=== PATIENT | male | born 1960 | race American Indian/Alaskan Native ===

== ENCOUNTER 2017-01-03 20:56 | Observation (INO) | payer MEDICAID ==
[2017-01-03 20:57] VITALS: BMI 34.0
[2017-01-03 21:10] VITALS: O2SAT 98
--- NOTE | 2017-01-03 22:00 | C.PDOC ---
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 Notes it is both feet and is on water pill HCTZ. He denies any dyspnea, chest pain, orthopnea. Time Seen by Provider: 01/03/17 21:37 Chief Complaint (Nursing): Lower Extremity Problem/Injury Past Medical History Vital Signs: Last Vital Signs Temp 98 F 01/03/17 21:07 Pulse 84 01/03/17 21:07 Resp 14 01/03/17 21:07 BP 154/84 H 01/03/17 21:07 Pulse Ox 98 01/03/17 23:13 - Medical History PMH: CVA, Deep Vein Thrombosis, Gastritis, HTN, Hyperlipidemia, Peripheral Edema , Pulmonary Embolism, Seizures Family History: States: Unknown Family Hx - Social History Hx Alcohol Use: No Hx Substance Use: No - Immunization History Hx Influenza Vaccination: Yes Review Of Systems Except As Marked, All Systems Reviewed And Found Negative. Constitutional: Negative for: Fever Cardiovascular: Negative for: Chest Pain Respiratory: Negative for: Shortness of Breath Physical Exam - Physical Exam Additional Physical Exam Comments: Constitutional: No acute distress. Head: Normocephalic. Atraumatic. Eyes: PERRL. ENT: Moist mucous membranes. Neck: Supple. No JVD. Cardiovascular: Regular rate. Chest: No tenderness. Respiratory: Clear to auscultation bilaterally. Mild basilar crackles. GI: Soft. Nontender. Nondistended. Back: No CVA tenderness. Musculoskeletal: Bilateral pitting edema. Skin: No rash. Neurologic: Alert ED Course And Treatment - Laboratory Results Result Diagrams: 01/03/17 22:38 01/03/17 22:38 O2 Sat by Pulse Oximetry: 98 ED OBSERVATION Discharge: Yes Date of observation admission: 01/03/17 Time of observation admission: 23:11 - Observation admission statement Patient is being placed in observation because:: leg swelling homeless - Progress Note Progress Note: 2310 Doppler for 2 days ago negative. Patient taking HCTZ after not taking for a while. Otherwise, labs stable. Would discharge but patient lives in correction which does not allow access at this time. Will hold until morning. 0100 Sleeping, no distress. 0300 Sleeping, no distress. 0500 Discharged. Disposition - Disposition Disposition: HOME/ ROUTINE Disposition Time: 05:20 Condition: STABLE - Clinical Impression Clinical Impression: Pedal edema
[2017-01-03 22:41] LABS: BASO # 0.1 K/uL (0.0-0.2); EOS # 0.2 K/uL (0.0-0.7); EOS % 1.5 % (0.0-4.0); HEMATOCRIT 36.3 % (35.0-51.0); LYMPH # 3.5 K/uL (1.0-4.3); LYMPH % 27.7 % (20.0-40.0); MEAN CELL VOLUME 75.2 fL (80.0-94.0); MEAN CORPUSCULAR HEMOGLOBIN 23.5 pg (27.0-31.0); MEAN CORPUSCULAR HGB CONC 31.3 g/dL (33.0-37.0); MEAN PLATELET VOLUME 9.3 fL (7.2-11.7); MONO # 0.9 K/uL (0.0-0.8); MONO % 7.5 % (0.0-10.0); NRBC % 0.1 % (0.0-2.0); RED CELL DISTRIBUTION WIDTH 14.9 % (11.5-14.5); WHITE BLOOD COUNT 12.5 K/uL (4.8-10.8)
[2017-01-03 22:47] LABS: INR 1.2
[2017-01-03 22:49] LABS: CHLORIDE 105 mmol/L (98-107); POTASSIUM 3.1 mmol/L (3.6-5.2); SODIUM 143 mmol/L (132-148)
[2017-01-03 22:51] LABS: BILIRUBIN,TOTAL 0.4 mg/dL (0.2-1.3); GFR AFRICAN-AMERICAN > 60
[2017-01-03 22:52] LABS: ALB/GLOB RATIO 1.3 (1.0-2.1); ALKALINE PHOSPHATASE 52 U/L (38-126); ALT/SGPT 16 U/L (21-72); AST/SGOT 16 U/L (17-59); BLOOD UREA NITROGEN 15 mg/dL (9-20); CARBON DIOXIDE 25 mmol/L (22-30); GLUCOSE,RANDOM 101 mg/dL (75-110); TOTAL PROTEIN 6.4 g/dL (6.3-8.3)
[2017-01-03 22:53] LABS: CALCIUM 8.6 mg/dl (8.6-10.4)
[2017-01-04 06:25] VITALS: BP 142/84; PULSE 80; RESP 18; TEMP 98.2
--- NOTE | 2017-01-04 08:45 | RAD ---
HISTORY: pedal edema COMPARISON: None available. TECHNIQUE: Chest, one view. FINDINGS: Examination limited by habitus and hypoinflation. LUNGS: Discoid atelectasis, left lung base. Right basilar atelectasis. Please note that chest x-ray has limited sensitivity for the detection of pulmonary masses. PLEURA: No significant pleural effusion identified. No definite pneumothorax . CARDIOVASCULAR: Cardiomegaly. Ectatic aorta. OSSEOUS STRUCTURES: Degenerative changes of the spine and shoulders. VISUALIZED UPPER ABDOMEN: Elevation of the left hemidiaphragm. OTHER FINDINGS: None. IMPRESSION: Discoid atelectasis, left lung base. Right basilar atelectasis.
== END 2017-01-04 05:20 | disposition home or self-care (01) ==
LOC: C.ER 20:56 → C.9OBSV 23:11
PROVIDERS: ADMIT Student in an Organized Health Care Education/Training Program; ATTEND Student in an Organized Health Care Education/Training Program
DX: R60.0 Localized edema (principal); Z59.0 Homelessness; Z86.711 Personal history of pulmonary embolism; I69.354 Hemiplegia and hemiparesis following cerebral infarction affecting left non-dominant side; I10 Essential (primary) hypertension; E78.5 Hyperlipidemia, unspecified; K29.70 Gastritis, unspecified, without bleeding; Z99.3 Dependence on wheelchair; Z86.718 Personal history of other venous thrombosis and embolism
CPT/HCPCS: 71010; 80053; 83880; 84484; 85025; 85610; 85730; 99284; G0378

== ENCOUNTER 2017-01-14 19:51 | Inpatient (IN) | payer MEDICAID ==
[2017-01-14 19:51] VITALS: BMI 34.0
--- NOTE | 2017-01-14 20:54 | C.PDOC ---
History Of Present Illness 56 y/o male presents to ED who was recently discharged from [facility] yesterday where he was admitted for leg edema. Patient with past history of CVA and with some residual left sided weakness and is wheelchair bound. Patient reports he still feels congested with some shortness of breath. Denies chest pain or palpitations. Patient states he is able to lie down flat and is speaking in complete sentences. Denies fever, chills, nausea, vomiting, or other associated symptoms. Time Seen by Provider: 01/14/17 20:53 Chief Complaint (Nursing): Cough, Cold, Congestion History Per: Patient History/Exam Limitations: no limitations Onset/Duration Of Symptoms: Days Current Symptoms Are (Timing): Still Present Location Of Pain: None Associated Symptoms: denies: Fever, Cough, Vomiting, Diarrhea Ear Symptoms: Bilateral: None Recent travel outside of the [place]: No Past Medical History Reviewed: Historical Data, Nursing Documentation, Vital Signs Vital Signs: Last Vital Signs Temp 98.1 F 01/14/17 20:25 Pulse 76 01/14/17 20:25 Resp 20 01/14/17 20:25 BP 155/95 H 01/14/17 20:25 Pulse Ox 98 01/14/17 21:29 - Medical History PMH: CVA, Deep Vein Thrombosis, Gastritis, HTN, Hyperlipidemia, Peripheral Edema , Pulmonary Embolism, Seizures Family History: States: Unknown Family Hx - Social History Hx Alcohol Use: No Hx Substance Use: No - Immunization History Hx Influenza Vaccination: Yes Review Of Systems Constitutional: Negative for: Fever, Chills ENT: Negative for: Throat Pain Cardiovascular: Negative for: Chest Pain, Palpitations Respiratory: Positive for: Shortness of Breath, Other ((+) congestion ) Gastrointestinal: Negative for: Nausea, Vomiting, Abdominal Pain Genitourinary: Negative for: Dysuria Skin: Negative for: Rash Neurological: Positive for: Weakness. Negative for: Dizziness Psych: Negative for: Anxiety Physical Exam - Physical Exam Appears: Non-toxic, No Acute Distress, Other (speaking in complete sentences) Skin: Warm, Dry Head: Atraumatic, Normacephalic Eye(s): bilateral: Normal Inspection Neck: Supple Chest: Symmetrical Cardiovascular: Rhythm Regular Respiratory: Rales (bibasilar), No Rhonchi, No Wheezing Gastrointestinal/Abdominal: Soft, No Tenderness Back: Normal Inspection Extremity: Pedal Edema (bilateral) Extremity: Bilateral: Atraumatic Neurological/Psych: Oriented x3, Normal Speech, Normal Cognition Gait: Unable To Assess ED Course And Treatment - Laboratory Results Result Diagrams: 01/14/17 22:16 01/14/17 22:16 ECG: Interpreted By Me, Viewed By Me O2 Sat by Pulse Oximetry: 98 Pulse Ox Interpretation: Normal - Radiology CXR Interpretation: Yes: Cardiomegaly, Other (mild chf, large hiatal hernia) Progress Note: EKG, CxR, ABG, and bloodwork ordered. Disposition Discussed With : Chong Adame Comment: accepted the pt on his service and took over the care at 11:35 PM Doctor Will See Patient In The: Hospital Counseled Patient/Family Regarding: Studies Performed, Diagnosis - Disposition Disposition: HOSPITALIZED Disposition Time: 20:54 Condition: FAIR - POA Present On Arrival: None - Clinical Impression Clinical Impression: CHF (congestive heart failure), Hiatal hernia, Dyspnea - Scribe Statement The provider has reviewed the documentation as recorded by the Gretchen Torres Provider Scribe Attestation: All medical record entries made by the Scribe were at my direction and personally dictated by me. I have reviewed the chart and agree that the record accurately reflects my personal performance of the history, physical exam, medical decision making, and the department course for this patient. I have also personally directed, reviewed, and agree with the discharge instructions and disposition. Decision To Admit - Pt Status Changed To: Hospital Disposition Of: Inpatient - Admit Certification Admit to Inpatient:: After my assessment, the patient will require hospitalization for at least two midnights. This is because of the severity of symptoms shown, intensity of services needed, and/or the medical risk in this patient being treated as an outpatient. - InPatient: Physician Admission Certification: I certify that this patient requires 2 or more midnights of care for the following reason:: After my assessment, the patient will require hospitalization for at least two midnights. This is because of the severity of symptoms shown, intensity of services needed, and/or the medical risk in this patient being treated as an outpatient. - . Bed Request Type: Telemetry Admitting Physician: Chong Adame Patient Diagnosis: CHF (congestive heart failure), Hiatal hernia, Dyspnea
[2017-01-14 22:20] LABS: BASO # 0.1 K/uL (0.0-0.2); BASO % 1.1 % (0.0-2.0); EOS # 0.2 K/uL (0.0-0.7); EOS % 1.7 % (0.0-4.0); HEMATOCRIT 40.3 % (35.0-51.0); LYMPH # 3.9 K/uL (1.0-4.3); LYMPH % 30.9 % (20.0-40.0); MEAN CELL VOLUME 75.3 fL (80.0-94.0); MEAN CORPUSCULAR HEMOGLOBIN 23.3 pg (27.0-31.0); MEAN PLATELET VOLUME 9.2 fL (7.2-11.7); MONO % 7.7 % (0.0-10.0); RED CELL DISTRIBUTION WIDTH 15.4 % (11.5-14.5); WHITE BLOOD COUNT 12.7 K/uL (4.8-10.8)
[2017-01-14 22:27] LABS: CHLORIDE 101 mmol/L (98-107); POTASSIUM 3.6 mmol/L (3.6-5.2); SODIUM 141 mmol/L (132-148)
[2017-01-14 22:29] LABS: INR 1.2
[2017-01-14 22:30] LABS: ALB/GLOB RATIO 1.2 (1.0-2.1); ALKALINE PHOSPHATASE 66 U/L (38-126); ALT/SGPT 15 U/L (21-72); AST/SGOT 17 U/L (17-59); BILIRUBIN,TOTAL 0.6 mg/dL (0.2-1.3); BLOOD UREA NITROGEN 15 mg/dL (9-20); CARBON DIOXIDE 27 mmol/L (22-30); GFR AFRICAN-AMERICAN > 60; GLUCOSE,RANDOM 87 mg/dL (75-110); TOTAL PROTEIN 7.5 g/dL (6.3-8.3)
[2017-01-14 22:31] LABS: CALCIUM 9.2 mg/dl (8.6-10.4)
[2017-01-15] MEDS ORDERED: Albuterol-Ipratrop 3 mg / 0.5 (3 ml) UD ONE (00:03)
[2017-01-15] MEDS: Albuterol-Ipratrop 3 mg / 0.5 (3 ml) UD INH SCH ×6 (05:54→19:41)
--- NOTE | 2017-01-15 08:02 | RAD ---
PROCEDURE: CHEST RADIOGRAPH, 1 VIEW HISTORY: Shortness of breath COMPARISON: 01/03/2017 FINDINGS: LUNGS: Elevated left hemidiaphragm with a suggestion of colonic interposition underneath the left hemicolon. Moderate venous congestion with diffuse increased interstitial lung markings. More linear consolidative changes at the left lung base which may represent atelectasis. Biapical pleural thickening with upper lobe granulomatous changes. Right hilar prominence. PLEURA: As above. CARDIOVASCULAR: Tortuous aorta. OSSEOUS STRUCTURES: No significant abnormalities. VISUALIZED UPPER ABDOMEN: Normal. OTHER FINDINGS: None. IMPRESSION: Elevated left hemidiaphragm with a suggestion of colonic interposition underneath the left hemicolon. Moderate venous congestion with diffuse increased interstitial lung markings. More linear consolidative changes at the left lung base which may represent atelectasis. Biapical pleural thickening with upper lobe granulomatous changes. Right hilar prominence.
[2017-01-15] MEDS ORDERED: Enoxaparin 30 mg Syringe SC SCH (10:00)
--- NOTE | 2017-01-15 13:08 | CP.PCM.PN ---
Subjective - Date & Time of Evaluation Date of Evaluation: 01/15/17 Time of Evaluation: 13:11 - Subjective Subjective: Medicine Progress Note- Dr. Adame's Service: 56 y/o male with PMHx of CVA, DVT, seizures, gastritis, HTN, Hyperlipidemia, Edema, Pulmonary Embolism admitted overnight for shortness of breath. Patient was recently at [facility] for leg swelling. Patient seen and examined at bedside this AM. Patient reports feeling much better this morning. Patient reports swelling in his legs has improved as well. He is sitting comfortably in his chair in no acute distress. He admits to new onset cough and sick contacts. Denies fevers, chills, nausea, vomiting. No other complaints at this time. Objective - Vital Signs/Intake and Output Vital Signs (last 24 hours): Temp Pulse Resp BP Pulse Ox 98.0 F 83 13 131/74 97 01/15/17 04:00 01/15/17 04:00 01/15/17 02:00 01/15/17 10:50 01/15/17 02:00 Intake and Output: 01/15/17 01/15/17 06:59 18:59 Intake Total 240 Output Total 900 Balance -660 - Medications Medications: Current Medications Albuterol/Ipratropium (Duoneb 3 Mg/0.5 Mg (3 Ml) Ud) 3 ml INH Q4H [facility] Last Admin: 01/15/17 11:27 Dose: 3 ml Carvedilol (Coreg) 3.125 mg PO BID [facility] Last Admin: 01/15/17 10:49 Dose: 3.125 mg Enalapril Maleate (Vasotec) 5 mg PO DAILY [facility] Last Admin: 01/15/17 10:49 Dose: 5 mg Enoxaparin Sodium (Lovenox) 40 mg SC DAILY [facility] Last Admin: 01/15/17 10:49 Dose: 40 mg Furosemide (Lasix) 40 mg IVP DAILY [facility] Last Admin: 01/15/17 10:50 Dose: 40 mg Levetiracetam (Keppra) 750 mg PO DAILY [facility] Last Admin: 01/15/17 10:50 Dose: 750 mg Pantoprazole Sodium (Protonix Inj) 40 mg IVP DAILY [facility] Last Admin: 01/15/17 10:50 Dose: 40 mg - Labs Labs: PT 12.9 SECONDS (9.7-12.2) H 01/14/17 22:16 INR 1.2 01/14/17 22:16 APTT 28 SECONDS (21-34) 01/14/17 22:16 - Constitutional Appears: No Acute Distress - Head Exam Head Exam: NORMAL INSPECTION, NORMOCEPHALIC - Eye Exam Eye Exam: EOMI, Normal appearance - ENT Exam ENT Exam: Mucous Membranes Moist - Neck Exam Neck Exam: Full ROM, Normal Inspection - Respiratory Exam Respiratory Exam: Clear to Ausculation Bilateral, NORMAL BREATHING PATTERN - Cardiovascular Exam Cardiovascular Exam: REGULAR RHYTHM, +S1, +S2 - GI/Abdominal Exam GI & Abdominal Exam: Soft. absent: Distended, Tenderness - Extremities Exam Extremities Exam: Full ROM, Pedal Edema - Neurological Exam Neurological Exam: Alert, Awake, Oriented x3 Assessment and Plan (1) CHF (congestive heart failure) Assessment & Plan: Coreg 2.125 mg PO BID Enalapril 5 mg PO daily Lasix 40 mg IVP daily Status: Acute (2) Lower extremity edema Assessment & Plan: Patient on Lasix 40 mg IVP daily Status: Acute (3) Seizure disorder Assessment & Plan: Keppra 75 mg PO daily Status: Acute (4) HTN (hypertension) Status: Acute (5) Hx of pulmonary embolus Assessment & Plan: Patient no longer on anticoagulation. Patient with Hx of DVT and left IVC filter. Status: Acute (6) Prophylactic measure Assessment & Plan: Protonix 40 mg IVP daily Lovenox 40 mg SC daily All management as per Dr. Adame Status: Acute
--- NOTE | 2017-01-15 14:53 | HP ---
The patient is a 56-year-old male admitted to the hospital with chief complaint of shortness of breat h, weakness, fatigue, swelling of lower extremities. The patient came to the ER, advised admission f or congestive heart failure. ____ congestive heart failure, history of chronic back pain, similar ad mission for same. The patient is a smoker. PHYSICAL EXAMINATION: GENERAL: The patient is awake, alert and oriented. VITAL SIGNS: Temperature 98, pulse 90. HEENT: Within normal limits. NECK: Supple. CHEST: Symmetrical. HEART: Regular. ABDOMEN: Soft. EXTREMITIES: 1+ edema. IMPRESSION: Congestive heart failure, hyperlipidemia, ____, supportive care and cardiac evaluation. Chong Starks MD cc: [id number] TT: 01/15/2017 12:59:06 mt 01/15/2017 13:52:24
[2017-01-15 19:28] LABS: BASO # 0.1 K/uL (0.0-0.2); BASO % 0.6 % (0.0-2.0); EOS # 0.1 K/uL (0.0-0.7); EOS % 1.1 % (0.0-4.0); HEMATOCRIT 39.3 % (35.0-51.0); LYMPH # 3.3 K/uL (1.0-4.3); LYMPH % 25.6 % (20.0-40.0); MEAN CELL VOLUME 75.3 fL (80.0-94.0); MEAN CORPUSCULAR HEMOGLOBIN 23.4 pg (27.0-31.0); MEAN CORPUSCULAR HGB CONC 31.1 g/dL (33.0-37.0); MEAN PLATELET VOLUME 9.1 fL (7.2-11.7); MONO # 0.9 K/uL (0.0-0.8); MONO % 7.2 % (0.0-10.0); RED CELL DISTRIBUTION WIDTH 14.9 % (11.5-14.5); WHITE BLOOD COUNT 12.8 K/uL (4.8-10.8)
[2017-01-15 19:32] LABS: CHLORIDE 98 mmol/L (98-107); POTASSIUM 3.2 mmol/L (3.6-5.2); SODIUM 139 mmol/L (132-148)
[2017-01-15 19:35] LABS: ALB/GLOB RATIO 1.2 (1.0-2.1); ALKALINE PHOSPHATASE 59 U/L (38-126); AST/SGOT 13 U/L (17-59); BILIRUBIN,TOTAL 0.7 mg/dL (0.2-1.3); BLOOD UREA NITROGEN 14 mg/dL (9-20); CALCIUM 8.8 mg/dl (8.6-10.4); CARBON DIOXIDE 28 mmol/L (22-30); GFR AFRICAN-AMERICAN > 60; GLUCOSE,RANDOM 104 mg/dL (75-110)
[2017-01-15 19:36] LABS: ALT/SGPT 15 U/L (21-72); MAGNESIUM 1.8 mg/dL (1.6-2.3)
[2017-01-15] MEDS ORDERED: Potassium Chloride 20 mEq ER Tab PO ONE ×2 (20:00→20:15)
[2017-01-16] MEDS: Albuterol-Ipratrop 3 mg / 0.5 (3 ml) UD INH SCH ×7 (00:14→23:52)
[2017-01-16 06:40] LABS: CHLORIDE 101 mmol/L (98-107); POTASSIUM 3.4 mmol/L (3.6-5.2); SODIUM 140 mmol/L (132-148)
[2017-01-16 06:42] LABS: GFR AFRICAN-AMERICAN > 60
[2017-01-16 06:43] LABS: ALB/GLOB RATIO 1.2 (1.0-2.1); ALKALINE PHOSPHATASE 55 U/L (38-126); AST/SGOT 13 U/L (17-59); BILIRUBIN,TOTAL 0.8 mg/dL (0.2-1.3); BLOOD UREA NITROGEN 15 mg/dL (9-20); CALCIUM 8.8 mg/dl (8.6-10.4); CARBON DIOXIDE 22 mmol/L (22-30); GLUCOSE,RANDOM 133 mg/dL (75-110); PHOSPHOROUS 3.3 mg/dL (2.5-4.5); TOTAL PROTEIN 6.7 g/dL (6.3-8.3)
[2017-01-16 06:44] LABS: MAGNESIUM 1.9 mg/dL (1.6-2.3)
[2017-01-16 06:51] LABS: BASO # 0.1 K/uL (0.0-0.2); BASO % 0.4 % (0.0-2.0); EOS # 0.1 K/uL (0.0-0.7); EOS % 0.8 % (0.0-4.0); HEMATOCRIT 37.7 % (35.0-51.0); LYMPH # 2.7 K/uL (1.0-4.3); LYMPH % 22.2 % (20.0-40.0); MEAN CELL VOLUME 75.3 fL (80.0-94.0); MEAN CORPUSCULAR HEMOGLOBIN 23.8 pg (27.0-31.0); MEAN CORPUSCULAR HGB CONC 31.7 g/dL (33.0-37.0); MEAN PLATELET VOLUME 8.9 fL (7.2-11.7); MONO # 0.9 K/uL (0.0-0.8); MONO % 7.2 % (0.0-10.0); NRBC % 0.1 % (0.0-2.0); RED CELL DISTRIBUTION WIDTH 15.1 % (11.5-14.5); WHITE BLOOD COUNT 12.4 K/uL (4.8-10.8)
[2017-01-16 07:01] LABS: ALT/SGPT < 6 U/L (21-72)
[2017-01-16] MEDS ORDERED: Potassium Chloride 20 mEq ER Tab PO ONE (07:45)
--- NOTE | 2017-01-16 08:18 | CARD ---
APPROVED REPORT EXAM: Two-dimensional and M-mode echocardiogram with Doppler and color Doppler. Other Information Quality : Technically LimitedRhythm : Technically limited study due to body habitus. INDICATION Dyspnea Pulmonary Embolism Congestive Heart Failure RISK FACTORS Hypertension Hyperlipidemia <Conclusion> Technically very limited study Large apical anterior and anteroseptal hypokinesis; estimated ejection fraction 35%; normal diastolic filling pressures; cannot exclude an apical thrombus Grossly normal mitral and aortic valve Cannot credibly comment on right sided structures No pericardial effusion Intracardiac hemodynamics indeterminate Suggest HECTOR
[2017-01-16] MEDS: Pantoprazole 40 mg EC Tab PO SCH (09:55)
[2017-01-16] MEDS: Enoxaparin 40 mg Syringe SC SCH (09:56)
--- NOTE | 2017-01-16 12:21 | CP.PCM.PN ---
Subjective - Date & Time of Evaluation Date of Evaluation: 01/16/17 Time of Evaluation: 08:40 - Subjective Subjective: Medicine Progress Note- Dr. Adame's Service: Patient seen and examined at bedside this AM. Patient admits he is breathing well this AM and would like to go home. Patient was cleared for discharge. However, patient refusing senior care, rehab facility and is unsafe discharge to street since patient is wheelchair bound. Patient is homeless stating "I'll be fine". Risks of leaving AMA were discussed with patient. Objective - Vital Signs/Intake and Output Vital Signs (last 24 hours): Temp Pulse Resp BP Pulse Ox 97.9 F 72 16 130/70 98 01/16/17 04:00 01/16/17 08:00 01/16/17 04:00 01/16/17 09:59 01/16/17 04:00 Intake and Output: 01/16/17 01/16/17 06:59 18:59 Intake Total 620 Output Total 500 Balance 120 - Medications Medications: Current Medications Albuterol/Ipratropium (Duoneb 3 Mg/0.5 Mg (3 Ml) Ud) 3 ml INH RQ4 [facility] Last Admin: 01/16/17 11:32 Dose: 3 ml Carvedilol (Coreg) 3.125 mg PO BID [facility] Last Admin: 01/16/17 10:03 Dose: 3.125 mg Enalapril Maleate (Vasotec) 5 mg PO DAILY [facility] Last Admin: 01/16/17 09:55 Dose: 5 mg Enoxaparin Sodium (Lovenox) 40 mg SC DAILY [facility] Last Admin: 01/16/17 09:56 Dose: 40 mg Furosemide (Lasix) 40 mg IVP DAILY [facility] Last Admin: 01/16/17 09:59 Dose: 40 mg Levetiracetam (Keppra) 750 mg PO DAILY [facility] Last Admin: 01/16/17 09:55 Dose: 750 mg Pantoprazole Sodium (Protonix Ec Tab) 40 mg PO DAILY [facility] Last Admin: 01/16/17 09:55 Dose: 40 mg - Labs Labs: 01/16/17 06:15 01/16/17 06:15 PT 12.9 SECONDS (9.7-12.2) H 01/14/17 22:16 INR 1.2 01/14/17 22:16 APTT 28 SECONDS (21-34) 01/14/17 22:16 - Constitutional Appears: No Acute Distress - Eye Exam Eye Exam: EOMI, Normal appearance - ENT Exam ENT Exam: Mucous Membranes Moist - Neck Exam Neck Exam: Full ROM, Normal Inspection - Respiratory Exam Respiratory Exam: Clear to Ausculation Bilateral, NORMAL BREATHING PATTERN - Cardiovascular Exam Cardiovascular Exam: REGULAR RHYTHM, +S1, +S2 - GI/Abdominal Exam GI & Abdominal Exam: Soft. absent: Distended, Tenderness - Extremities Exam Extremities Exam: Pedal Edema. absent: Full ROM - Back Exam Back Exam: NORMAL INSPECTION - Neurological Exam Neurological Exam: Alert, Oriented x3 - Psychiatric Exam Psychiatric exam: Normal Affect, Normal Mood - Skin Skin Exam: Normal Color, Warm Assessment and Plan - Assessment and Plan (Free Text) Assessment: (1) CHF (congestive heart failure) Assessment & Plan: Coreg 2.125 mg PO BID Enalapril 5 mg PO daily Lasix 40 mg IVP daily Status: Acute (2) Lower extremity edema Assessment & Plan: Patient on Lasix 40 mg IVP daily Status: Acute (3) Seizure disorder Assessment & Plan: Keppra 75 mg PO daily Status: Acute (4) HTN (hypertension) Status: Acute (5) Hx of pulmonary embolus Assessment & Plan: Patient no longer on anticoagulation. Patient with Hx of DVT and left IVC filter. Status: Acute (6) Prophylactic measure Assessment & Plan: Protonix 40 mg IVP daily Lovenox 40 mg SC daily Patient left AMA as he was an unsafe discharge. All management as per Dr. Adame Status: Acute
[2017-01-16 23:55] VITALS: RESP 20
[2017-01-17] MEDS: Albuterol-Ipratrop 3 mg / 0.5 (3 ml) UD INH SCH ×5 (04:00→20:04)
--- NOTE | 2017-01-17 08:33 | CP.PCM.PN ---
Subjective - Date & Time of Evaluation Date of Evaluation: 01/17/17 Time of Evaluation: 08:00 - Subjective Subjective: Medicine Progress Note- Dr. Adame's Service: Patient seen and examined at bedside this AM. Patient did not leave AMA last night and decided to stay. Patient is complaining of productive cough and nursing reports new elevated temperature. He is short of breath secondary to cough. No chest pain, nausea, vomiting, diarrhea. Objective - Vital Signs/Intake and Output Vital Signs (last 24 hours): Temp Pulse Resp BP Pulse Ox 100.3 F H 78 20 165/84 H 96 01/17/17 07:44 01/17/17 07:44 01/17/17 07:44 01/17/17 07:44 01/17/17 07:44 - Medications Medications: Current Medications Albuterol/Ipratropium (Duoneb 3 Mg/0.5 Mg (3 Ml) Ud) 3 ml INH RQ4 [facility] Last Admin: 01/17/17 07:19 Dose: Not Given Carvedilol (Coreg) 3.125 mg PO BID [facility] Last Admin: 01/16/17 18:46 Dose: Not Given Enalapril Maleate (Vasotec) 5 mg PO DAILY [facility] Last Admin: 01/16/17 09:55 Dose: 5 mg Enoxaparin Sodium (Lovenox) 40 mg SC DAILY [facility] Last Admin: 01/16/17 09:56 Dose: 40 mg Furosemide (Lasix) 40 mg IVP DAILY [facility] Last Admin: 01/16/17 09:59 Dose: 40 mg Levetiracetam (Keppra) 750 mg PO DAILY [facility] Last Admin: 01/16/17 09:55 Dose: 750 mg Pantoprazole Sodium (Protonix Ec Tab) 40 mg PO DAILY [facility] Last Admin: 01/16/17 09:55 Dose: 40 mg - Labs Labs: 01/16/17 06:15 01/16/17 06:15 PT 12.9 SECONDS (9.7-12.2) H 01/14/17 22:16 INR 1.2 01/14/17 22:16 APTT 28 SECONDS (21-34) 01/14/17 22:16 - Constitutional Appears: No Acute Distress - Head Exam Head Exam: NORMAL INSPECTION, NORMOCEPHALIC - Eye Exam Eye Exam: EOMI, Normal appearance - ENT Exam ENT Exam: Mucous Membranes Moist - Neck Exam Neck Exam: Full ROM, Normal Inspection - Respiratory Exam Respiratory Exam: Clear to Ausculation Bilateral. absent: Rales, Rhonchi - Cardiovascular Exam Cardiovascular Exam: REGULAR RHYTHM, +S1, +S2 - GI/Abdominal Exam GI & Abdominal Exam: Soft. absent: Distended, Tenderness - Extremities Exam Extremities Exam: Full ROM, Normal Inspection - Back Exam Back Exam: NORMAL INSPECTION - Neurological Exam Neurological Exam: Alert, Awake, Oriented x3 - Psychiatric Exam Psychiatric exam: Normal Affect, Normal Mood - Skin Skin Exam: Normal Color, Warm Assessment and Plan - Assessment and Plan (Free Text) Assessment: (1) Cough 01/17/17: Prominent linear atelectasis and consolidation at the left lung base. Elevated left hemidiaphragm. Colonic interposition underneath the left hemidiaphragm. Moderate venous congestion. Bilateral hilar prominence. Start Clindamycin IVPB Start Cefepime IVPB Start Robitussin DM Blood Cx negative 01/14/17. (2) CHF (congestive heart failure) Assessment & Plan: Coreg 2.125 mg PO BID Enalapril 5 mg PO daily Lasix 40 mg IVP daily Status: Acute (3) Lower extremity edema Assessment & Plan: Patient on Lasix 40 mg IVP daily Status: Acute (4) Seizure disorder Assessment & Plan: Keppra 75 mg PO daily Status: Acute (5) HTN (hypertension) Status: Acute Enalapril 5 mg PO daily Coreg 3.125 mg PO BID (6) Hx of pulmonary embolus Assessment & Plan: Patient no longer on anticoagulation. Patient with Hx of DVT and left IVC filter. Status: Acute (7) Prophylactic measure Assessment & Plan: Protonix 40 mg IVP daily Lovenox 40 mg SC daily All management as per Dr. Adame Status: Acute
--- NOTE | 2017-01-17 09:59 | RAD ---
HISTORY: cough and fever COMPARISON: 01/14/2017 FINDINGS: LUNGS: Prominent linear atelectasis and consolidation at the left lung base. Elevated left hemidiaphragm. Colonic interposition underneath the left hemidiaphragm. Moderate venous congestion. Bilateral hilar prominence. PLEURA: No significant pleural effusion identified, no pneumothorax apparent. CARDIOVASCULAR: Tortuous ectatic aorta. Mild cardiomegaly. OSSEOUS STRUCTURES: Degenerative changes in the spine and shoulders. VISUALIZED UPPER ABDOMEN: Normal. OTHER FINDINGS: None. IMPRESSION: Prominent linear atelectasis and consolidation at the left lung base. Elevated left hemidiaphragm. Colonic interposition underneath the left hemidiaphragm. Moderate venous congestion. Bilateral hilar prominence.
[2017-01-17] MEDS: Enoxaparin 40 mg Syringe SC SCH (10:04)
[2017-01-17] MEDS: Pantoprazole 40 mg EC Tab PO SCH (10:05)
[2017-01-17 11:18] LABS: BASO # 0.1 K/uL (0.0-0.2); BASO % 0.6 % (0.0-2.0); EOS % 0.4 % (0.0-4.0); HEMATOCRIT 38.2 % (35.0-51.0); LYMPH # 1.6 K/uL (1.0-4.3); LYMPH % 17.5 % (20.0-40.0); MEAN CELL VOLUME 75.6 fL (80.0-94.0); MEAN CORPUSCULAR HEMOGLOBIN 23.4 pg (27.0-31.0); MEAN PLATELET VOLUME 9.7 fL (7.2-11.7); MONO % 11.2 % (0.0-10.0); RED CELL DISTRIBUTION WIDTH 15.1 % (11.5-14.5); WHITE BLOOD COUNT 9.2 K/uL (4.8-10.8)
[2017-01-17 11:46] LABS: CHLORIDE 102 mmol/L (98-107); POTASSIUM 3.6 mmol/L (3.6-5.2); SODIUM 140 mmol/L (132-148)
[2017-01-17 11:48] LABS: GFR AFRICAN-AMERICAN > 60
[2017-01-17 11:49] LABS: ALB/GLOB RATIO 1.1 (1.0-2.1); ALKALINE PHOSPHATASE 55 U/L (38-126); ALT/SGPT 14 U/L (21-72); AST/SGOT 13 U/L (17-59); BILIRUBIN,TOTAL 0.9 mg/dL (0.2-1.3); BLOOD UREA NITROGEN 15 mg/dL (9-20); CALCIUM 8.8 mg/dl (8.6-10.4); CARBON DIOXIDE 25 mmol/L (22-30); GLUCOSE,RANDOM 81 mg/dL (75-110)
[2017-01-17] MEDS: Clindamycin 300 MG in Sodium Chloride 0.9% 50 ML IVPB SCH ×2 (13:33→17:53)
[2017-01-17] MEDS: Cefepime IV 1 gm in Dextrose 1 GM/50 ML BAG IVPB SCH ×2 (13:35→21:43)
[2017-01-17] MEDS: guaiFENesin DM 200 mg-20 mg/10 ml UD PO PRN (21:59)
[2017-01-18] MEDS: Clindamycin 300 MG in Sodium Chloride 0.9% 50 ML IVPB SCH ×4 (00:40→17:51)
[2017-01-18] MEDS: Albuterol-Ipratrop 3 mg / 0.5 (3 ml) UD INH SCH ×6 (01:39→20:24)
[2017-01-18] MEDS: Cefepime IV 1 gm in Dextrose 1 GM/50 ML BAG IVPB SCH ×3 (04:00→20:00)
[2017-01-18] MEDS: guaiFENesin DM 200 mg-20 mg/10 ml UD PO PRN ×2 (05:55→10:57)
[2017-01-18] MEDS: Pantoprazole 40 mg EC Tab PO SCH (09:32)
[2017-01-18] MEDS: Enoxaparin 40 mg Syringe SC SCH (09:33)
--- NOTE | 2017-01-18 09:52 | PN ---
DATE: 01/18/2017 LOCATION: 368, bed A. This is a 56-year-old male seen for GI consultation on 01/16/2017 and reexamined again today with the nursing staff on the floor, reported to have low grade temperature of 103, but no reported active bl eeding. The entire chart is reviewed, including but not limited to the most recent lab and radiology study results, current and previous medication list, current and the previous medical events as well as allergic to medication list. The patient still has low hemoglobin of 11.8 with low indices highl y suggestive of hypochromic microcytic anemia with low ALT and AST with hepatitis profile was reporte d to be negative. Most recent chest x-ray done yesterday, report is seen indicative of possible left-sided pneumonia wi th colon ____ underneath the left hemidiaphragm. PHYSICAL EXAMINATION: GENERAL: A 56-year-old male complaining of abdominal pain with subsequent drop of temperature at the time was seen by me. VITAL SIGNS: Afebrile with pulse of 78, respiratory rate 20-22 with blood pressure of 134/80. HEENT: Showed pale, dry oral mucoid membrane. Nonicteric sclerae. LUNGS: Few scattered crepitation, decreased air entry at bases. HEART: Positive S1 and S2. ABDOMEN: Soft. Bowel sounds are present. No mass or organomegaly. No rebound tenderness or guardi ng. RECTAL: The patient refused. EXTREMITIES: Without significant edema, clubbing or cyanosis. NEUROLOGIC: No reported new neurologic deficits, sensory or motor. The patient has a history of CVA as reported. IMPRESSION: 1. Anemia, most likely secondary to chronic disease, no evidence of active bleeding. 2. Reexacerbation of peptic ulcer disease. 3. Known history of cerebrovascular accident, with some residual of the left side weakness. It has to be mentioned that the patient had been wheelchair bound. 4. Known history of hyperlipidemia, hypertension and peripheral edema syndrome with seizure disorder . SUGGESTION: 1. Continue current management. 2. Guaiac all the stool daily x 3. 3. Sectional abdominal and pelvic CAT scan as well as chest CAT scan. 4. No aggressive GI workup in the meantime until the patient is more stable clinically. Otherwise, further observation to follow. Mariluz Kaba MD cc: [id number] TT: 01/18/2017 09:51:23 Confirmation # [id number] Dictation # [id number]
[2017-01-18] MEDS ORDERED: Iohexol 240 (50 ml) PO ONE (15:15)
[2017-01-18] MEDS ORDERED: Iodixanol 320 MG/ML 100 ML BOTTLE IV ONE (16:43)
--- NOTE | 2017-01-18 17:47 | CT ---
PROCEDURE: CT Abdomen and Pelvis with oral and IV contrast. HISTORY: abd pain ( ordered as per dr Kaba) COMPARISON: None available TECHNIQUE: Contiguous axial images of the abdomen and pelvis. Oral and IV contrast was administered. Coronal and Sagittal reformats generated and reviewed. Contrast dose: 100 mL Visipaque Radiation dose: Total exam DLP = 1241.70 mGy-cm. This CT exam was performed using one or more of the following dose reduction techniques: Automated exposure control, adjustment of the mA and/or kV according to patient size, and/or use of iterative reconstruction technique. FINDINGS: Examination limited due to left sided patient paralysis. LOWER THORAX: No visible consolidation, pleural effusion, or pneumothorax. Marked elevation of the left hemidiaphragm ; incompletely imaged on the provided views. LIVER: Hypoattenuation of the liver compatible with hepatic steatosis. GALLBLADDER AND BILE DUCTS: Unremarkable . PANCREAS: Unremarkable . SPLEEN: Unremarkable . ADRENALS: Unremarkable . KIDNEYS AND URETERS: The kidneys enhance symmetrically. No hydronephrosis or obstructing renal calculus. BLADDER: Mild urinary bladder wall thickening may be exaggerated by under distension. REPRODUCTIVE: The prostate gland measures approximately 3.4 x 4.4 cm. APPENDIX: Appendix appears within normal limits of caliber. No secondary signs of acute appendicitis. BOWEL: The stomach is nondistended. The bowel loops appear within normal limits of caliber without evidence of intestinal obstruction. Rectal wall thickening. PERITONEUM: No significant free fluid. No definite free air. LYMPH NODES: No bulky lymphadenopathy identified. VASCULATURE: IVC filter. No aortic aneurysm. Aneurysmal dilatation of the right common iliac artery measuring approximately 2.2 cm. Aneurysmal dilatation of the left internal and external iliac arteries with marked thrombus. Internal iliac artery measures approximately 2.5 cm maximum dimension. External iliac artery measures approximately 1.7 cm in maximum dimension. BONES: Degenerative changes. Schmorl's nodes. OTHER FINDINGS: Small fat containing umbilical hernia. IMPRESSION: Examination limited due to left sided patient paralysis. Marked elevation of the left hemidiaphragm ; incompletely imaged on the provided views. Rectal wall thickening ; correlate clinically for proctitis. Hepatic steatosis. IVC filter. Aneurysmal dilatation of the right common iliac artery measuring approximately 2.2 cm. Aneurysmal dilatation of the left internal and external iliac arteries with marked thrombus. Internal iliac artery measures approximately 2.5 cm maximum dimension. External iliac artery measures approximately 1.7 cm in maximum dimension. Additional findings as above.
[2017-01-19] MEDS: Clindamycin 300 MG in Sodium Chloride 0.9% 50 ML IVPB SCH ×4 (00:25→18:20)
[2017-01-19] MEDS: Albuterol-Ipratrop 3 mg / 0.5 (3 ml) UD INH SCH ×6 (00:36→20:15)
[2017-01-19] MEDS: Cefepime IV 1 gm in Dextrose 1 GM/50 ML BAG IVPB SCH ×3 (04:00→19:46)
[2017-01-19] MEDS: guaiFENesin DM 200 mg-20 mg/10 ml UD PO PRN ×4 (05:35→19:47)
--- NOTE | 2017-01-19 10:13 | PN ---
DATE: 01/19/2017 LOCATION: 368, bed A. This is a 56-year-old male, seen and examined in rounds without significant clinical changes or repor flory active bleeding, appeared to be more awake, alert and oriented, had before elevated temperature, none today. No reported active bleeding. The entire chart is reviewed including, but not limited to , the most recent lab and radiology study results, current and previous medication lists, current and previous medical events. The patient still has low hemoglobin with low indices as well as low ALT a nd low AST. Abdominal and pelvic CAT scan was ordered and done yesterday, indicative of marked elevation of the l eft hemidiaphragm with rectal wall thickening and hepatitic steatosis. The patient also has evidence of inferior vena cava filter with aneurysmal dilation of the right common iliac artery. PHYSICAL EXAMINATION: GENERAL: A 56-year-old male, seen and examined. Case discussed with the staff on the floor at [facility]. VITAL SIGNS: Afebrile with pulse of 80, respiratory rate 20-22, blood pressure of 130/72. HEENT: Showed pale, dry oral mucoid membrane. Nonicteric sclerae. LUNGS: Few scattered crepitation, decreased air entry at bases. HEART: Positive S1 and S2. ABDOMEN: Soft. Bowel sounds are present with slight generalized tenderness. No mass or organomegal y. No rebound tenderness or guarding. RECTAL: The patient refused. EXTREMITIES: Without significant clubbing or cyanosis, but with lower extremity mild edematous thompson es. NEUROLOGIC: No reported new neurologic deficits, sensory or motor. IMPRESSION: 1. Hypochromic, microcytic anemia. 2. Productive cough with possible acute bronchitis. 3. End-stage congestive heart failure. 4. Lower extremity edema with possible chronic peripheral edema syndrome. 5. Known history of seizure disorder, hypertension as well as pulmonary embolus with status post inf erior vena cava filter insertion. 6. Abnormal CAT scan of the abdomen and the pelvis. SUGGESTION: 1. Continue current management. 2. Due to the patient's thickened wall of the rectum, cancer markers to be ordered. Then, colonosco py is to be scheduled only when the patient is more stable clinically. That could be done as outpati ent. 3. Further recommendation to follow. Mariluz Kaba MD cc: 14 TT: 01/19/2017 10:13:02 Confirmation # [id number] Dictation # [id number] en
[2017-01-19] MEDS: Enoxaparin 40 mg Syringe SC SCH (10:44)
[2017-01-19] MEDS: Pantoprazole 40 mg EC Tab PO SCH (10:44)
--- NOTE | 2017-01-19 20:49 | CON ---
DATE: 01/17/[address] Mariluz Kaba to Dr. Chong Starks. I was called for GI consultation by the admitting MD. The patient is seen and fully examined for GI consultation on 01/17/17, as requested by the admitting medical team. The entire chart is reviewed, including but not limited to the most recent lab and radiology study results, current and the previou s medication list, current and the previous medical events, allergy to medication list as well as all the available current and the previous medical records. The case was discussed at length with the s horaciof on the floor. This is a 56-year-old male who was admitted to the hospital through the Emergency Room with a complai nt of generalized weakness and malaise, abdominal pain, postprandial abdominal distention with the co mplaint of nasal congestion, but no reported chills or fever and no reported active bleeding. After being admitted to the hospital, the patient initially was found to have elevated white blood ce lls to 12.7, but normal hemoglobin and hematocrit with subsequent drop of his H and H post-admission. PAST MEDICAL HISTORY: Including , but not limited to: 1. CVA with residual left-sided weakness. 2. Hypertension with hyperlipidemia. 3. Peptic ulcer disease. 4. Deep vein thrombocytosis with pulmonary embolus in the past and is status post IVC filter inserti on as per record. 5. History of seizure disorder. FAMILY HISTORY: Unknown. SOCIAL HISTORY: Denied any recent history of cigarette smoking or alcohol intake, the patient is francois eless and he is wheelchair bound. CURRENT MEDICATIONS: Medication lists were reviewed as well as allergy to medication list. PHYSICAL EXAMINATION: GENERAL: This is a 56-year-old male. VITAL SIGNS: Afebrile with pulse of 78, respiratory rate 20-22 with blood pressure of 163/84. HEENT: Showed pale, dry oral mucoid membrane. Nonicteric sclerae. LUNGS: A few scattered crepitation, decreased air entry at bases. HEART: Positive S1 and S2. LYMPH NODES: No lymphadenitis or lymphadenopathy. ABDOMEN: Soft with [id number] generalized tenderness and mild distention. No mass or organome nicholas. No rebound tenderness or guarding. RECTAL: The patient refused. EXTREMITIES: Lower extremities with edematous changes and left-sided weakness. No clubbing or cyano sis. NEUROLOGIC: No reported new neurological deficits, sensory or motor. IMPRESSION: 1. Reexacerbation of peptic ulcer disease, to rule out an early phase of pancreatitis due to the per sistent complaint of abdominal pain. 2. Poorly controlled hypertension. 3. Past medical history of but not limited to cerebrovascular accident with left-sided residual weak ness, deep vein thrombosis with report of pulmonary embolus and is status post inferior vena cava salvatore ter insertion, seizure disorder, hyperlipidemia by history. SUGGESTION: 1. Continue current management. 2. Due to the patient's persistent complaint of abdominal pain, sectional abdominal and pelvic CAT s can to be kept in mind. 3. Serum lipase, amylase level. 4. Cancer markers. 5. Guaiac all the stool daily x 3. 6. No need for aggressive GI workup in the meantime, also patient refused. Mariluz Kaba MD cc: 14 TT: 01/19/2017 20:48:38 Confirmation # [id number] Dictation # [id number] deejay
[2017-01-20] MEDS: Clindamycin 300 MG in Sodium Chloride 0.9% 50 ML IVPB SCH ×2 (00:05→05:41)
[2017-01-20] MEDS: guaiFENesin DM 200 mg-20 mg/10 ml UD PO PRN ×2 (00:11→10:02)
[2017-01-20] MEDS: Albuterol-Ipratrop 3 mg / 0.5 (3 ml) UD INH SCH ×3 (01:22→09:05)
[2017-01-20] MEDS: Cefepime IV 1 gm in Dextrose 1 GM/50 ML BAG IVPB SCH (04:00)
--- NOTE | 2017-01-20 07:53 | HP ---
The patient came to the hospital with chief complaint of weakness, fatigue, and shortness of breath, swelling in lower extremity. The patient came, advised admission. The patient has history of hypert ension. PHYSICAL EXAMINATION: GENERAL: Awake, alert, oriented, short of breath at rest. VITAL SIGNS: Temperature 98, pulse 90. HEENT: Within normal limits. NECK: Supple. CHEST: Symmetrical. HEART: Regular. ABDOMEN: Soft. EXTREMITIES: No edema. ASSESSMENT: The patient has congestive heart failure. The patient bed rest, supportive care, diures is. Chong Starks MD cc: [id number] TT: 01/18/2017 12:20:58 jn
[2017-01-20 08:00] VITALS: BP 140/87; PULSE 77; TEMP 98.4; O2SAT 95
--- NOTE | 2017-01-20 08:24 | DS ---
The patient admitted to the hospital with chief complaint of shortness of breath. Found to be in congestive heart failure. Given diuresis, improved. Discharged to be followed as outpatient. Chong Starks MD cc: 634 TT: 01/19/2017 07:49:16 en
[2017-01-20] MEDS: Pantoprazole 40 mg EC Tab PO SCH (09:58)
[2017-01-20] MEDS: Enoxaparin 40 mg Syringe SC SCH (10:03)
--- NOTE | 2017-01-20 13:05 | PN ---
DATE: 01/20/2017 LOCATION: 368, bed A. This is a 56-year-old male, seen and examined in rounds without significant clinical changes or repor flory active bleeding with a complaint of generalized weakness and malaise. The entire chart is review ed including, but not limited to, the most recent lab and radiology study results, current and previo us medication lists, current and previous medical events. Case discussed at length with the staff on the floor and the patient still has low hemoglobin with low indices as well as low AST and ALT with negative hepatitis profile. PHYSICAL EXAMINATION: GENERAL: A 56-year-old male, awake, alert, oriented. VITAL SIGNS: Afebrile with pulse of 80, respiratory rate 20-22, blood pressure of 144/82. HEENT: Showed pale, dry oral mucoid membrane. Nonicteric sclerae. LUNGS: Few scattered crepitation, decreased air entry at bases. HEART: Positive S1 and S2. ABDOMEN: Soft. Bowel sounds are present. No mass or organomegaly. No rebound tenderness or guardi ng. EXTREMITIES: Without significant edema, clubbing or cyanosis. NEUROLOGIC: No reported new neurologic deficits, sensory or motor. IMPRESSION: 1. Anemia. 2. Hypertension. 3. Known history of deep venous thrombosis with pulmonary embolism. 4. Known history of seizure disorder. 5. Bronchitis with productive cough. 6. Lower extremity edema syndrome, peripheral edema syndrome. SUGGESTION: 1. Continue current management. 2. No need for aggressive GI workup. 3. Further recommendation to follow. Mariluz Kbaa MD cc: 14 TT: 01/20/2017 13:04:45 Confirmation # [id number] Dictation # [id number] en
--- NOTE | 2017-01-20 14:50 | CP.PCM.PN ---
Subjective - Date & Time of Evaluation Date of Evaluation: 01/20/17 Time of Evaluation: 09:00 - Subjective Subjective: Medicine Progress Note- Dr. Adame's Service: Patient seen this AM because he wanted to leave AMA. Risks of leaving AMA explained to patient, including but not limited to lower extremity arterial thrombus with possibility for embolization. Patient understood need for Vascular Surgery consultation. However, patient left AMA. Dr. Adame. Patient refused examination. Objective - Vital Signs/Intake and Output Vital Signs (last 24 hours): Temp Pulse Resp BP Pulse Ox 98.4 F 77 20 140/87 95 01/20/17 07:57 01/20/17 07:57 01/20/17 07:57 01/20/17 10:03 01/20/17 07:57 Intake and Output: 01/20/17 01/20/17 06:59 18:59 Intake Total 550 440 Output Total 750 Balance -200 440 - Labs Labs: 01/17/17 11:05 01/17/17 11:05 PT 12.9 SECONDS (9.7-12.2) H 01/14/17 22:16 INR 1.2 01/14/17 22:16 APTT 28 SECONDS (21-34) 01/14/17 22:16
--- NOTE | 2017-01-20 16:59 | PCM.HF ---
Heart Failure Core Measure - Heart Failure Ejection Fraction: Less Than 40 % TRACEY Inhibitor Prescribed: Yes Beta-Sonia Prescribed: Carvedilol Angiotensin II Receptor Sonia Prescribed: No Contraindication/Reason for not providing: on TRACEY AnticoagulationTherapy for Atrial Fibrillation/Atrialflutter: No Contraindication/Reason for not providing: NO hx OF afib Aldosterone Antagonist Prescribed: No Contraindication/Reason for not providing: on loop diuretics / bp low Hydralazine Nitrate Prescribed: No Contraindication/Reason for not providing: bp low Implantable Cardioverter Defibrillator Therapy: No Contraindication/Reason for not providing: out pateint f/u Cardiac Resynchronization Therapy Prescribed: No Contraindication/Reason for not providing: out pt f/u with cardiology - Follow up Will be discharged to: Home Follow Up Date (must be within 7 days from discharge): 01/22/17 Follow Up Time: 09:00
--- NOTE | 2017-01-21 23:53 | CARD ---
APPROVED REPORT EKG Measurement Heart [id number] <Conclusion> Normal sinus rhythm Septal infarct, age undetermined Abnormal ECG
--- NOTE | 2017-02-14 11:27 | DS ---
The patient admitted to the hospital with chief complaint of generalized weakness, fatigue, tiredness . The patient got supportive care, IV antibiotic. The patient is discharged to follow up outpatient . Chong Starks MD cc: 634 TT: 02/14/2017 10:37:32 tn
== END 2017-01-20 11:10 | disposition left against medical advice (07) | DRG 127 ==
LOC: C.ER 19:51 → C.9E 23:37 → C.9I 01-15 01:19 → C.3T 01-17 00:40
PROVIDERS: ADMIT Internal Medicine Pulmonary Disease; ATTEND Internal Medicine Pulmonary Disease
DX: I11.0 Hypertensive heart disease with heart failure (principal); I69.354 Hemiplegia and hemiparesis following cerebral infarction affecting left non-dominant side; I50.9 Heart failure, unspecified; E78.5 Hyperlipidemia, unspecified; D63.8 Anemia in other chronic diseases classified elsewhere; D50.9 Iron deficiency anemia, unspecified; J40 Bronchitis, not specified as acute or chronic; G40.909 Epilepsy, unspecified, not intractable, without status epilepticus; D72.829 Elevated white blood cell count, unspecified; Z99.3 Dependence on wheelchair; Z86.711 Personal history of pulmonary embolism; Z86.718 Personal history of other venous thrombosis and embolism; Z87.11 Personal history of peptic ulcer disease; Z59.0 Homelessness

== ENCOUNTER 2017-01-26 04:04 | Emergency (ER) | payer MEDICAID ==
[2017-01-26 04:04] VITALS: BMI 34.0
[2017-01-26 04:51] LABS: BASO # 0.1 K/uL (0.0-0.2); BASO % 0.4 % (0.0-2.0); EOS # 0.2 K/uL (0.0-0.7); EOS % 2.1 % (0.0-4.0); HEMATOCRIT 35.7 % (35.0-51.0); LYMPH # 3.2 K/uL (1.0-4.3); LYMPH % 27.8 % (20.0-40.0); MEAN CELL VOLUME 75.3 fL (80.0-94.0); MEAN CORPUSCULAR HEMOGLOBIN 23.3 pg (27.0-31.0); MEAN PLATELET VOLUME 9.1 fL (7.2-11.7); MONO # 0.6 K/uL (0.0-0.8); MONO % 5.3 % (0.0-10.0); RED CELL DISTRIBUTION WIDTH 15.5 % (11.5-14.5); WHITE BLOOD COUNT 11.6 K/uL (4.8-10.8)
[2017-01-26 04:56] LABS: CHLORIDE 102 mmol/L (98-107)
[2017-01-26 04:57] LABS: INR 1.1; POTASSIUM 3.7 mmol/L (3.6-5.2); SODIUM 137 mmol/L (132-148)
[2017-01-26 04:59] LABS: ALB/GLOB RATIO 1.1 (1.0-2.1); ALKALINE PHOSPHATASE 53 U/L (38-126); ALT/SGPT 24 U/L (21-72); AST/SGOT 25 U/L (17-59); BILIRUBIN,TOTAL 0.5 mg/dL (0.2-1.3); BLOOD UREA NITROGEN 15 mg/dL (9-20); CARBON DIOXIDE 24 mmol/L (22-30); GFR AFRICAN-AMERICAN > 60; TOTAL PROTEIN 7.3 g/dL (6.3-8.3)
[2017-01-26 05:00] LABS: CALCIUM 8.8 mg/dl (8.6-10.4); GLUCOSE,RANDOM 100 mg/dL (75-110)
--- NOTE | 2017-01-26 05:32 | C.PDOC ---
Time Seen by Provider: 01/26/17 04:21 Chief Complaint (Nursing): Shortness Of Breath Past Medical History Vital Signs: Last Vital Signs Temp 98.2 F 01/26/17 04:17 Pulse 72 01/26/17 04:17 Resp 22 01/26/17 04:48 BP 143/73 01/26/17 04:17 Pulse Ox 98 01/26/17 04:17 - Medical History PMH: CVA, Deep Vein Thrombosis, Gastritis, HTN, Hypercholesterolemia, Hyperlipidemia, Peripheral Edema, Pulmonary Embolism, Seizures Denies: Asthma, Atrial Fibrillation, Bronchitis, Cardia Arrhythmia, CHF, COPD , Emphysema, Mitral Valve Prolapse, Pneumonia, Chronic Kidney Disease, Sleep Apnea Surgical History: Denies: Pacemaker Family History: States: Unknown Family Hx - Social History Hx Alcohol Use: No (as per pt) Hx Substance Use: No (as per pt) - Immunization History Hx Influenza Vaccination: Yes ED Course And Treatment - Laboratory Results Result Diagrams: 01/26/17 04:44 01/26/17 04:44 O2 Sat by Pulse Oximetry: 98 (ra) Pulse Ox Interpretation: Normal - Radiology CXR: Interpreted by Me, Viewed By Me (no infiltrates/effusions, elevated left hemidiaphragm - unchanged from prior CXR) Progress Note: Blood work, CXrR, EKG ordered and reviewed. Disposition Counseled Patient/Family Regarding: Studies Performed, Diagnosis, Need For Followup - Disposition Referrals: Chong Rondon MD [Staff Provider] - Disposition: HOME/ ROUTINE Disposition Time: 05:35 Condition: STABLE Additional Instructions: FOLLOW UP WITH DR RONDON IN 1-2 DAYS RETURN TO ER IF SYMPTOMS WORSEN/RETURN Instructions: Leg Edema (ED) Print Language: SPANISH - POA Present On Arrival: None - Clinical Impression Clinical Impression: Leg edema
--- NOTE | 2017-01-26 05:32 | C.PDOC ---
History Of Present Illness 56 year old male was brought to the ED by ambulance with complaints of lightheadedness and mild SOB over the last several days. Patient notes swelling in lower extremities but admits that the swelling is chronic. He denies any chest pain, palpitations, abdominal pain, nausea, vomiting, cough, or fever. Time Seen by Provider: 01/26/17 04:21 Chief Complaint (Nursing): Shortness Of Breath History Per: Patient, EMS History/Exam Limitations: no limitations Onset/Duration Of Symptoms: Days Current Symptoms Are (Timing): Still Present Severity: Mild Associated Symptoms: Light-headedness. denies: Fever, Chills, Sweating, Productive Cough Past Medical History Reviewed: Historical Data, Nursing Documentation, Vital Signs Vital Signs: Last Vital Signs Temp 98.4 F 01/26/17 06:09 Pulse 83 01/26/17 06:09 Resp 20 01/26/17 06:09 BP 135/70 01/26/17 06:09 Pulse Ox 97 01/26/17 06:09 - Medical History PMH: CVA, Deep Vein Thrombosis, Gastritis, HTN, Hypercholesterolemia, Hyperlipidemia, Peripheral Edema, Pulmonary Embolism, Seizures Family History: States: No Known Family Hx - Social History Hx Alcohol Use: No (as per pt) Hx Substance Use: No (as per pt) - Immunization History Hx Influenza Vaccination: Yes Review Of Systems Except As Marked, All Systems Reviewed And Found Negative. Constitutional: Negative for: Fever, Chills Eyes: Negative for: Vision Change Cardiovascular: Negative for: Chest Pain, Palpitations Respiratory: Positive for: Shortness of Breath. Negative for: Cough, Wheezing Gastrointestinal: Negative for: Nausea, Vomiting, Abdominal Pain, Diarrhea Genitourinary: Negative for: Dysuria, Hematuria Physical Exam - Physical Exam Appears: Well, Non-toxic, No Acute Distress, Unkempt Skin: Warm, Dry Head: Normacephalic Eye(s): bilateral: PERRL Oral Mucosa: Moist Neck: Normal, Normal ROM, Supple Cardiovascular: Rhythm Regular Respiratory: Normal Breath Sounds, No Accessory Muscle Use, No Rales (faint rales on left base ), No Rhonchi, No Wheezing Gastrointestinal/Abdominal: Normal Exam, Bowel Sounds, Soft, No Tenderness, No Guarding, No Rebound Extremity: Normal ROM, No Tenderness, Other (+1 pitting edema B/L LEs) Pulses: Left Dorsalis Pedis: Normal, Right Dorsalis Pedis: Normal Neurological/Psych: Oriented x3 ED Course And Treatment - Laboratory Results Result Diagrams: 01/26/17 04:44 01/26/17 04:44 ECG: Interpreted By Me, Viewed By Me (NSR 62 bpm, left axis deviation, Q waves III, aVF, T wave inversions aVL, V5-V6. ) ECG Rhythm: ST/T Changes (no ST changes ) ECG Interpretation: No Acute Changes O2 Sat by Pulse Oximetry: 98 (room air ) Pulse Ox Interpretation: Normal - Radiology CXR: Interpreted by Me, Viewed By Me CXR Interpretation: Yes: Other ((no infiltrates/effusions, elevated left hemidiaphragm-unchanged from prior CXR)). No: Infiltrates Progress Note: Blood work, CXR, EKG ordered and reviewed. Reevaluation Time: 05:45 Reassessment Condition: Improved (On reassessment, patient is sleeping comfortably, in no current distress. He states is feeling better, and is comfortable being discharged home. CXr (-) for infiltrates/effusions. Blood work, including BNP, unremarkable. Vitals WNL. Patient discharged home, was instructed to follow up with PMD/clinic in 1-2 days. He understands he should return to ED if symptoms worsen.) Disposition Counseled Patient/Family Regarding: Studies Performed, Diagnosis, Need For Followup - Disposition Referrals: Chong Rondon MD [Staff Provider] - Disposition: HOME/ ROUTINE Disposition Time: 05:45 (RETURN TO ER IF SYMPTOMS WORSEN/RETURN) Condition: STABLE Additional Instructions: FOLLOW UP WITH DR RONDON IN 1-2 DAYS RETURN TO ER IF SYMPTOMS WORSEN/RETURN Instructions: Leg Edema (ED) Forms: General Discharge Instructions Print Language: CZECH - POA Present On Arrival: None - Clinical Impression Clinical Impression: Leg edema - Scribe Statement The provider has reviewed the documentation as recorded by the Scribe Niesha Wilson All medical record entries made by the Scribe were at my direction and personally dictated by me. I have reviewed the chart and agree that the record accurately reflects my personal performance of the history, physical exam, medical decision making, and the department course for this patient. I have also personally directed, reviewed, and agree with the discharge instructions and disposition.
[2017-01-26 06:10] VITALS: BP 135/70; PULSE 83; RESP 20; TEMP 98.4
--- NOTE | 2017-01-26 11:50 | RAD ---
PROCEDURE: CHEST RADIOGRAPH, 1 VIEW portable study 04:42. HISTORY: SOB COMPARISON: 01/17/2017. FINDINGS: LUNGS: Clear. Resolution of atelectasis identified previously left upper lobe. PLEURA: No pneumothorax or pleural fluid seen. CARDIOVASCULAR: Cardiomegaly. No evidence of acute, significant cardiovascular disease. OSSEOUS STRUCTURES: No significant abnormalities. VISUALIZED UPPER ABDOMEN: Normal. OTHER FINDINGS: None. IMPRESSION: No active disease.
--- NOTE | 2017-01-27 17:32 | CARD ---
APPROVED REPORT EKG Measurement Heart [id number] ID [id number] <Conclusion> Normal sinus rhythm Incomplete RBBB Inferior infarct, age undetermined can not be excluded. Abnormal ECG
[2017-01-28 19:11] VITALS: O2SAT 98
== END 2017-01-26 06:42 | disposition home or self-care (01) ==
LOC: C.ER 04:04
DX: R60.0 Localized edema (principal)

== ENCOUNTER 2017-03-08 01:10 | Emergency (ER) | payer MEDICAID ==
[2017-03-08 01:10] VITALS: BMI 34.0
[2017-03-08] MEDS ORDERED: Oxycodone/Acetaminophen 5/325 mg Tab PO STA (02:34)
[2017-03-08] MEDS ORDERED: Oxycodone/Acetaminophen 5/325 mg Tab ONE (02:46)
--- NOTE | 2017-03-08 03:31 | C.PDOC ---
History Of Present Illness Patient is a 56 year old male who presents to the ER with a complaint of left sided rib pain for the past few days. Patient states [facility] when he had a seizure and fell forward. Patient notes he has pain when he breaths. Denies chest pain, SOB, abdominal pain or or trauma. - HPI Time Seen by Provider: 03/08/17 01:36 Chief Complaint (Nursing): Rib Injury History Per: Patient History/Exam Limitations: no limitations Onset/Duration Of Symptoms: Days Injury Occurred (Timing): Days Ago: Location Of Injury: Left: Chest (Ribs) Associated Symptoms: Seizure Recent travel outside of the [place]: No Past Medical History Reviewed: Historical Data, Nursing Documentation, Vital Signs Vital Signs: Last Vital Signs Temp 97.9 F 03/08/17 05:37 Pulse 65 03/08/17 05:37 Resp 20 03/08/17 05:37 BP 158/93 H 03/08/17 05:37 Pulse Ox 96 03/08/17 05:37 - Medical History PMH: CVA, Deep Vein Thrombosis, Gastritis, HTN, Hypercholesterolemia, Hyperlipidemia, Peripheral Edema, Pulmonary Embolism, Seizures Surgical History: No Surg Hx Family History: States: Unknown Family Hx - Social History Hx Alcohol Use: No Hx Substance Use: No (as per pt) - Immunization History Hx Influenza Vaccination: Yes Review Of Systems Cardiovascular: Negative for: Chest Pain Respiratory: Negative for: Shortness of Breath Gastrointestinal: Negative for: Abdominal Pain Musculoskeletal: Positive for: Other (Left sided rib pain) Physical Exam - Physical Exam Appears: Non-toxic Skin: Normal Color, Warm, Dry Head: Atraumatic, Normacephalic Eye(s): bilateral: Normal Inspection, PERRL, EOMI Oral Mucosa: Moist Neck: Normal ROM, No Midline Cervical Tenderness, No Paracervical Tenderness, Supple Chest: Symmetrical, Tenderness (Mild to lateral left ribs) Cardiovascular: Rhythm Regular, No Friction Rub, No Murmur Respiratory: Normal Breath Sounds, No Rales, No Rhonchi, No Stridor, No Wheezing Gastrointestinal/Abdominal: Soft, No Tenderness Extremity: Normal ROM, No Swelling Neurological/Psych: Oriented x3, Normal Speech, Normal Cognition, Normal Motor Gait: Steady ED Course And Treatment O2 Sat by Pulse Oximetry: 100 (Room air) Pulse Ox Interpretation: Normal - Radiology CXR: Interpreted by Me CXR Interpretation: Yes: No Acute Disease. No: Infiltrates, Pnemothorax Progress Note: CXR ordered. Motrin and percocet administered. Disposition - Disposition Referrals: Chong Adame MD [Primary Care Provider] - Disposition: HOME/ ROUTINE Disposition Time: 04:10 Condition: GOOD Additional Instructions: Follow up with the medical doctor within 1-2 days. Return if worsened. Prescriptions: Ibuprofen [Motrin] 1 tab PO TID PRN #30 tab PRN Reason: Pain traMADol [Ultram] 50 mg PO Q6 PRN #20 tab PRN Reason: Pain Instructions: Rib Contusion (ED) - Clinical Impression Clinical Impression: Rib contusion - Scribe Statement The provider has reviewed the documentation as recorded by the Scribtanisha Guadarrama All medical record entries made by the Scribe were at my direction and personally dictated by me. I have reviewed the chart and agree that the record accurately reflects my personal performance of the history, physical exam, medical decision making, and the department course for this patient. I have also personally directed, reviewed, and agree with the discharge instructions and disposition.
--- NOTE | 2017-03-08 10:08 | RAD ---
PROCEDURE: CHEST RADIOGRAPH, 1 VIEW HISTORY: chest injury COMPARISON: 01/26/2017 FINDINGS: LUNGS: There are chronic changes in both lungs. No focal consolidation. PLEURA: No pneumothorax or pleural fluid seen. CARDIOVASCULAR: Normal. OSSEOUS STRUCTURES: No significant abnormalities. VISUALIZED UPPER ABDOMEN: Normal. OTHER FINDINGS: There is chronic elevation of the left hemidiaphragm. IMPRESSION: No acute findings.
[2017-03-08 10:35] VITALS: PULSE 62
[2017-03-08 14:53] VITALS: BP 155/89; RESP 18; TEMP 98.4; O2SAT 98
== END 2017-03-08 14:54 | disposition home or self-care (01) ==
LOC: C.ER 01:10 → SUPCPDRO 01:10 → C.ER 14:54
DX: S20.212A Contusion of left front wall of thorax, initial encounter (principal); W18.30XA Fall on same level, unspecified, initial encounter; Y92.89 Other specified places as the place of occurrence of the external cause

== ENCOUNTER 2017-04-06 08:39 | Inpatient (IN) | payer MEDICAID ==
[2017-04-06 08:39] VITALS: BMI 34.0
[2017-04-06 09:58] LABS: ALBUMIN 3.7 g/dL (3.5-5.0)
[2017-04-06 09:59] LABS: BASO # 0.1 K/uL (0.0-0.2); BASO % 0.9 % (0.0-2.0); EOS # 0.1 K/uL (0.0-0.7); EOS % 1.1 % (0.0-4.0); HEMOGLOBIN 11.5 g/dL (12.0-18.0); LYMPH # 2.3 K/uL (1.0-4.3); LYMPH % 26.6 % (20.0-40.0); MEAN CELL VOLUME 76.1 fL (80.0-94.0); MEAN CORPUSCULAR HEMOGLOBIN 23.7 pg (27.0-31.0); MEAN CORPUSCULAR HGB CONC 31.1 g/dL (33.0-37.0); MEAN PLATELET VOLUME 9.6 fL (7.2-11.7); MONO # 0.6 K/uL (0.0-0.8); MONO % 6.7 % (0.0-10.0); NEUT # 5.6 K/uL (1.8-7.0); NEUT % 64.7 % (50.0-75.0); RBC 4.85 Mil/uL (4.40-5.90); RED CELL DISTRIBUTION WIDTH 15.4 % (11.5-14.5); WHITE BLOOD COUNT 8.6 K/uL (4.8-10.8)
[2017-04-06 10:01] LABS: GFR AFRICAN-AMERICAN > 60; GFR NON-AFRICAN AMERICAN > 60
[2017-04-06 10:02] LABS: ALB/GLOB RATIO 1.1 (1.0-2.1); ALT/SGPT 27 U/L (21-72); AST/SGOT 25 U/L (17-59); BLOOD UREA NITROGEN 11 mg/dL (9-20); CALCIUM 8.9 mg/dl (8.6-10.4); HDL CHOLESTEROL 38 mg/dL (30-70)
[2017-04-06 10:09] LABS: INR 1.1; PROTHROMBIN TIME 12.4 SECONDS (9.7-12.2)
[2017-04-06 10:13] LABS: B-TYPE NATRIURETIC PEPTIDE 1720 pg/mL (0-900); LDL CHOLESTEROL 107 mg/dL (0-129)
--- NOTE | 2017-04-06 10:47 | C.PDOC ---
History Of Present Illness Patient is a 56 y/o male, whose PMHx includes HTN, CHF, COPD, EF 30%, seizure disorder, and CVA (left upper and lower extremity neuro deficit), presents to the ED for evaluation of increased left leg swelling for the last 5 days. Pt reports tightness and numbness to left lower extremity. Patient was admitted at [facility] on 03/21/17 for CHF exacerbation, and was discharged on 03/24/17. Otherwise, denies any injury, trauma, chest pain, shortness of breath , headache, dizziness, fever, chills, or any other associated symptoms at this time. Time Seen by Provider: 04/06/17 08:52 Chief Complaint (Nursing): Lower Extremity Problem/Injury History Per: Patient History/Exam Limitations: no limitations Current Symptoms Are (Timing): Still Present Recent travel outside of the [place]: No Additional History Per: Patient Past Medical History Reviewed: Historical Data, Nursing Documentation, Vital Signs Vital Signs: Last Vital Signs Temp 98.3 F 04/06/17 11:42 Pulse 72 04/06/17 11:42 Resp 18 04/06/17 11:42 BP 135/78 04/06/17 11:42 Pulse Ox 97 04/06/17 11:42 - Medical History PMH: CHF, CVA, Deep Vein Thrombosis, Gastritis, HTN, Hypercholesterolemia, Hyperlipidemia, Peripheral Edema, Pulmonary Embolism, Seizures (last episode 2016) Denies: Asthma, Atrial Fibrillation, Bronchitis, Cardia Arrhythmia, COPD, Emphysema, Mitral Valve Prolapse, Pneumonia, Chronic Kidney Disease, Sleep Apnea Surgical History: Denies: Pacemaker Family History: States: Unknown Family Hx - Social History Hx Alcohol Use: No Hx Substance Use: No (as per pt) - Immunization History Hx Influenza Vaccination: Yes Review Of Systems Except As Marked, All Systems Reviewed And Found Negative. Constitutional: Negative for: Fever, Chills Cardiovascular: Negative for: Chest Pain, Palpitations Respiratory: Negative for: Shortness of Breath Musculoskeletal: Negative for: Leg Pain Skin: Positive for: Other (left leg swelling) Neurological: Positive for: Numbness (left leg). Negative for: Headache, Dizziness Physical Exam - Physical Exam Appears: Non-toxic, No Acute Distress, Unkempt, Other (malodorous, calm, cooperative) Skin: Warm, Dry, Other (peeling to soles of feet) Head: Atraumatic, Normacephalic Eye(s): bilateral: Normal Inspection Neck: Normal ROM, Supple Chest: Symmetrical Cardiovascular: Rhythm Regular, No Murmur Respiratory: Normal Breath Sounds, No Rales, No Rhonchi, No Wheezing Gastrointestinal/Abdominal: Soft, No Tenderness, Other (obese abdomen) Extremity: No Tenderness, Pedal Edema (pitting edema BL, more on left leg), No Calf Tenderness, Capillary Refill (< 2 sec.), No Deformity, Other (Foul smelling feet) Pulses: Left Dorsalis Pedis: Normal, Right Dorsalis Pedis: Normal Neurological/Psych: Oriented x3, Normal Speech, Normal Cognition, Normal Motor, Normal Sensation ED Course And Treatment - Laboratory Results Result Diagrams: 04/06/17 09:43 04/06/17 09:43 O2 Sat by Pulse Oximetry: 94 Progress Note: Blood work, EKG, CXR ordered and reviewed. Medical Decision Making Medical Decision Making: spoke with DR Adame, will hospitalize overnight for diuresis Disposition Discussed With .: Chong Adame Doctor Will See Patient In The: Hospital Counseled Patient/Family Regarding: Studies Performed, Diagnosis - Disposition Disposition: HOSPITALIZED Disposition Time: 11:59 Condition: GUARDED - Clinical Impression Clinical Impression: CHF (congestive heart failure) - Scribe Statement The provider has reviewed the documentation as recorded by the Scribtanisha Ramos All medical record entries made by the Scribe were at my direction and personally dictated by me. I have reviewed the chart and agree that the record accurately reflects my personal performance of the history, physical exam, medical decision making, and the department course for this patient. I have also personally directed, reviewed, and agree with the discharge instructions and disposition. Decision To Admit - Pt Status Changed To: Hospital Disposition Of: Observation - InPatient: Physician Admission Certification: I certify that this patient requires 2 or more midnights of care for the following reason:: CHF - . Bed Request Type: Telemetry Admitting Physician: Chong Adame Patient Diagnosis: CHF (congestive heart failure)
--- NOTE | 2017-04-06 11:26 | RAD ---
PROCEDURE: CHEST RADIOGRAPH, 1 VIEW HISTORY: SOB COMPARISON: Comparison is made to 03/08/2017 FINDINGS: LUNGS: Re- demonstration of reticular opacities in the lungs appear larger and more conspicuous compared to the previous exam. Elevation of the left hemidiaphragm is again noted. PLEURA: No pneumothorax or pleural fluid seen. CARDIOVASCULAR: Mild cardiomegaly is noted. OSSEOUS STRUCTURES: No significant abnormalities. VISUALIZED UPPER ABDOMEN: Normal. OTHER FINDINGS: None. IMPRESSION: Worsening reticular opacities in the lungs may represent worsening pulmonary congestion. Cardiomegaly. Re- demonstration of moderate elevation of left hemidiaphragm.
[2017-04-06] MEDS ORDERED: Albuterol-Ipratrop 3 mg / 0.5 (3 ml) UD INH PRN (15:45)
[2017-04-06] MEDS ORDERED: Oxycodone/Acetaminophen 5/325 mg Tab PO PRN (15:45)
[2017-04-06] MEDS: Potassium Chloride 20 mEq ER Tab PO SCH (17:10)
[2017-04-07 08:01] LABS: BASO # 0.1 K/uL (0.0-0.2); BASO % 0.7 % (0.0-2.0); EOS # 0.1 K/uL (0.0-0.7); EOS % 1.5 % (0.0-4.0); HEMOGLOBIN 10.8 g/dL (12.0-18.0); LYMPH # 2.3 K/uL (1.0-4.3); LYMPH % 24.6 % (20.0-40.0); MEAN CELL VOLUME 75.2 fL (80.0-94.0); MEAN CORPUSCULAR HEMOGLOBIN 23.9 pg (27.0-31.0); MEAN CORPUSCULAR HGB CONC 31.8 g/dL (33.0-37.0); MEAN PLATELET VOLUME 8.9 fL (7.2-11.7); MONO # 0.6 K/uL (0.0-0.8); MONO % 6.3 % (0.0-10.0); NEUT # 6.2 K/uL (1.8-7.0); NEUT % 66.9 % (50.0-75.0); NRBC % 0.1 % (0.0-2.0); RBC 4.52 Mil/uL (4.40-5.90); RED CELL DISTRIBUTION WIDTH 15.2 % (11.5-14.5); WHITE BLOOD COUNT 9.2 K/uL (4.8-10.8)
[2017-04-07 08:04] VITALS: RESP 20
[2017-04-07 08:05] LABS: GFR AFRICAN-AMERICAN > 60; GFR NON-AFRICAN AMERICAN > 60
[2017-04-07 08:06] LABS: ALB/GLOB RATIO 1.1 (1.0-2.1); ALT/SGPT 23 U/L (21-72); AST/SGOT 16 U/L (17-59); BLOOD UREA NITROGEN 10 mg/dL (9-20); CALCIUM 8.7 mg/dl (8.6-10.4)
[2017-04-07] MEDS ORDERED: Enoxaparin 40 mg Syringe SC SCH (10:00)
[2017-04-07] MEDS ORDERED: Potassium Chloride 20 mEq ER Tab PO SCH (10:00)
[2017-04-07] MEDS: Potassium Chloride 20 mEq ER Tab PO SCH (10:50)
[2017-04-07 11:58] LABS: IRON 58 ug/dL (49-181)
[2017-04-07 12:08] LABS: % IRON SATURATION 21 (20-55); TOTAL IRON BINDING CAPACITY 281 ug/dL (250-450)
[2017-04-07 12:27] LABS: FERRITIN 31.2 ng/mL
[2017-04-07 12:57] LABS: FOLATE 7.6 ng/mL
--- NOTE | 2017-04-07 12:57 | CARD ---
APPROVED REPORT EKG Measurement Heart [id number] <Conclusion> Sinus rhythm with occasional premature ventricular complexes Left axis deviation Left ventricular hypertrophy with QRS widening Cannot rule out Septal infarct, age undetermined T wave abnormality, consider lateral ischemia Abnormal ECG
--- NOTE | 2017-04-07 13:32 | CP.PCM.PN ---
Subjective - Date & Time of Evaluation Date of Evaluation: 04/07/17 Time of Evaluation: 13:24 - Subjective Subjective: PGY2 progress note 56 year old male with past medical history of chronic systolic CHF with EF of 35 %, HTN, CVA with left residual weakness, seizure disorder and non-compliance with medication is seen in hospital for progressive L lower extremity swelling and shortness of breath. LE swelling began about 5 days ago and shortness of breath began about few days ago. Patient denies having any CP, abd pain, LE pain, N/V/D/C. Patient was recently discharge from [facility] for similar symptoms. While there, patient had echo done which showed EF of 25% and no thrombus or pericardial fluid. Patient has been non-complaint with medications after discharge. 12 point ROS are negative except for the above mentioned. PMH: as above PSH: denies Med: refer to [facility] ALL: NKA SH: smokes half ppd for "many year", denies drinking or drugs FH: denies Objective - Vital Signs/Intake and Output Vital Signs (last 24 hours): Temp Pulse Resp BP Pulse Ox 99.0 F 71 20 148/92 H 95 04/07/17 08:00 04/07/17 09:01 04/07/17 08:00 04/07/17 10:53 04/07/17 08:00 - Medications Medications: Current Medications Albuterol/Ipratropium (Duoneb 3 Mg/0.5 Mg (3 Ml) Ud) 3 ml INH RQ6 PRN PRN Reason: Shortness of Breath Carvedilol (Coreg) 6.25 mg PO BID [facility] Last Admin: 04/07/17 10:51 Dose: 6.25 mg Enalapril Maleate (Vasotec) 5 mg PO DAILY [facility] Last Admin: 04/07/17 10:53 Dose: 5 mg Enoxaparin Sodium (Lovenox) 40 mg SC DAILY [facility] Last Admin: 04/07/17 10:50 Dose: 40 mg Furosemide (Lasix) 40 mg IVP DAILY [facility] Last Admin: 04/07/17 10:52 Dose: 40 mg Hydrochlorothiazide (Hydrodiuril) 25 mg PO DAILY [facility] Last Admin: 04/07/17 10:51 Dose: 25 mg Levetiracetam (Keppra) 750 mg PO DAILY [facility] Last Admin: 04/07/17 10:50 Dose: 750 mg Oxycodone/Acetaminophen (Percocet 5/325 Mg Tab) 1 tab PO Q4H PRN PRN Reason: Pain, moderate (4-7) Stop: 04/09/17 15:46 Pantoprazole Sodium (Protonix Inj) 40 mg IVP DAILY [facility] Last Admin: 04/07/17 10:51 Dose: 40 mg Pneumococcal Polyvalent Vaccine (Pneumovax 23 Vaccine) 0.5 ml IM .ONCE ONE Stop: 04/09/17 14:01 Potassium Chloride (K-Dur 20 Meq Er Tab) 20 meq PO DAILY [facility] Last Admin: 04/07/17 10:50 Dose: 20 meq - Labs Labs: 04/07/17 07:53 04/07/17 07:46 PT 12.4 SECONDS (9.7-12.2) H 04/06/17 09:43 INR 1.1 04/06/17 09:43 APTT 30 SECONDS (21-34) 04/06/17 09:43 - Constitutional Appears: Non-toxic, No Acute Distress - Eye Exam Eye Exam: EOMI - ENT Exam ENT Exam: Mucous Membranes Moist - Respiratory Exam Respiratory Exam: Clear to Ausculation Bilateral, NORMAL BREATHING PATTERN. absent: Accessory Muscle Use, Rales, Rhonchi, Wheezes, Respiratory Distress - Cardiovascular Exam Cardiovascular Exam: REGULAR RHYTHM, +S1, +S2. absent: Gallop, Rubs, Murmur - GI/Abdominal Exam GI & Abdominal Exam: Soft, Normal Bowel Sounds. absent: Distended, Firm, Guarding, Rigid, Tenderness, Organomegaly - Extremities Exam Extremities Exam: Pedal Edema (non-pitting ). absent: Calf Tenderness, Tenderness - Neurological Exam Neurological Exam: Alert, Awake, Oriented x3 - Psychiatric Exam Psychiatric exam: Normal Affect, Normal Mood - Skin Skin Exam: Dry, Intact, Normal Color, Warm Assessment and Plan - Assessment and Plan (Free Text) Assessment: 56 year old male with past medical history of CHF with EF of 25%, HTN, CVA with residual left sided weakness is admitted for LE swelling and progressive shortness of breath. On admission, ProBNP was 1720 and troponin were normal. CXR showed worsening reticular opacities in lungs which may represent worsening pulmonary congestion, cardiomegaly and elevation of left hemidiaphragm. Shortness of breath - Likely 2/2 CHF exacerbation - Patient is started on Lasix 40 mg IV qd - Will continue Coreg 6.25 mg po bid, Enalapril 5 mg po qd, HCTZ 40 mg po qd - Will measure daily Is and Os LE swelling - Will check lower extremity dopplers B/L - Lasix IV qd Elevated troponins - On admission troponin was .0120. Repeat troponin this morning is .1520 - Will check EKG stat - Cardiology, Dr. Verduzco is consulted and is made aware of changes - Cholesterol panel is WNL HTN - Will continue home medications as stated above - Will continue to monitor vital signs Hx of seizure disorder - Will continue home medication Kepra 750 mg po qd Diarrhea - Will check stool studies: c diff toxin and antigen, ova parasite, culture, leukocytes Prophylaxis Lovenox 40 SC QD - Protonix Orders and management per Dr. Adame's recs
[2017-04-07] MEDS ORDERED: Aspirin 325 mg EC Tablets PO ONE (14:30)
--- NOTE | 2017-04-07 15:03 | VASCLAB ---
PROCEDURE: Lower Extremity Venous Duplex Exam. HISTORY: left lower extremity swelling PRIORS: None. TECHNIQUE: Bilateral common femoral, femoral, popliteal and posterior tibial, peroneal and great saphenous veins were evaluated. Flow was assessed with color Doppler, compressibility, assessment of phasic flow and augmentation response. Report prepared by Delio Newton, BOBBY, RVT FINDINGS: RIGHT: 1. Common Femoral Vein: 1.1. Compressibility - Fully compressible: Thrombus - None : Flow - Phasic: Augmentation -Normal: Reflux - None. 2. Femoral Vein: 2.1. Compressibility - Fully compressible: Thrombus - None : Flow - Phasic: Augmentation -Normal: Reflux - None. 3. Popliteal Vein: 3.1. Compressibility - Fully compressible: Thrombus - None : Flow - Phasic: Augmentation -Normal: Reflux - None. 4. Posterior Tibial Vein: 4.1. Compressibility - Fully compressible: Thrombus - None: Flow - Phasic: Augmentation -Normal: Reflux - None. 5. Peroneal Vein: 5.1. Compressibility - Fully compressible: Thrombus - None: Flow - Phasic: Augmentation -Normal: Reflux - None. 6. Great Saphenous Vein: 6.1. Compressibility - Fully compressible: Thrombus - None: Flow - Phasic: Augmentation - Normal: Reflux - None. LEFT: 1. Common Femoral Vein: 1.1. Compressibility - Fully compressible: Thrombus - None: Flow - Phasic: Augmentation -Normal: Reflux - None. 2. Femoral Vein: 2.1. Compressibility - Fully compressible: Thrombus - None: Flow - Phasic: Augmentation -Normal: Reflux - None. 3. Popliteal Vein: 3.1. Compressibility - Fully compressible: Thrombus - None : Flow - Phasic: Augmentation -Normal: Reflux - Severe. 4. Posterior Tibial Vein: 4.1. Compressibility - Fully compressible: Thrombus - None: Flow - Phasic: Augmentation -Normal: Reflux - None. 5. Peroneal Vein: 5.1. Compressibility - Fully compressible: Thrombus - None: Flow - Phasic: Augmentation -Normal: Reflux - None. 6. Great Saphenous Vein: 6.1. Compressibility - Fully compressible: Thrombus - None: Flow - Phasic: Augmentation - Normal: Reflux - None. OTHER FINDINGS: Right: None significant. Left: Severe valvular incompetence of the left popliteal vein. IMPRESSION: Right: No evidence of deep or superficial vein thrombosis of the right lower extremity. Normal valve function noted of the right side. Left: No evidence of deep or superficial vein thrombosis of the left lower extremity.
--- NOTE | 2017-04-08 07:38 | CP.PCM.PN ---
Subjective - Date & Time of Evaluation Date of Evaluation: 04/08/17 Time of Evaluation: 07:40 - Subjective Subjective: Medicine Progress Note- Dr. Adame's Service: Patient seen and examined at bedside this AM. Patient states SOB has improved compared to yesterday. Admits swelling in bilateral LE has also improved. He denies chest pain, fevers, chills, nausea, vomiting today. Objective - Vital Signs/Intake and Output Vital Signs (last 24 hours): Temp Pulse Resp BP Pulse Ox 98.1 F 74 20 156/97 H 93 L 04/07/17 23:42 04/08/17 04:14 04/07/17 23:42 04/07/17 23:42 04/07/17 23:42 Intake and Output: 04/08/17 04/08/17 06:59 18:59 Output Total 200 Balance -200 - Medications Medications: Current Medications Albuterol/Ipratropium (Duoneb 3 Mg/0.5 Mg (3 Ml) Ud) 3 ml INH RQ6 PRN PRN Reason: Shortness of Breath Carvedilol (Coreg) 6.25 mg PO BID [facility] Last Admin: 04/07/17 17:47 Dose: 6.25 mg Enalapril Maleate (Vasotec) 5 mg PO DAILY [facility] Last Admin: 04/07/17 10:53 Dose: 5 mg Enoxaparin Sodium (Lovenox) 40 mg SC DAILY [facility] Last Admin: 04/07/17 10:50 Dose: 40 mg Furosemide (Lasix) 40 mg IVP DAILY [facility] Last Admin: 04/07/17 10:52 Dose: 40 mg Hydrochlorothiazide (Hydrodiuril) 25 mg PO DAILY [facility] Last Admin: 04/07/17 10:51 Dose: 25 mg Levetiracetam (Keppra) 750 mg PO DAILY [facility] Last Admin: 04/07/17 10:50 Dose: 750 mg Oxycodone/Acetaminophen (Percocet 5/325 Mg Tab) 1 tab PO Q4H PRN PRN Reason: Pain, moderate (4-7) Stop: 04/09/17 15:46 Pantoprazole Sodium (Protonix Inj) 40 mg IVP DAILY [facility] Last Admin: 04/07/17 10:51 Dose: 40 mg Pneumococcal Polyvalent Vaccine (Pneumovax 23 Vaccine) 0.5 ml IM .ONCE ONE Stop: 04/09/17 14:01 Potassium Chloride (K-Dur 20 Meq Er Tab) 20 meq PO DAILY [facility] Last Admin: 04/07/17 10:50 Dose: 20 meq - Labs Labs: 04/07/17 07:53 04/07/17 07:46 PT 12.4 SECONDS (9.7-12.2) H 04/06/17 09:43 INR 1.1 04/06/17 09:43 APTT 30 SECONDS (21-34) 04/06/17 09:43 - Constitutional Appears: No Acute Distress - Head Exam Head Exam: NORMAL INSPECTION, NORMOCEPHALIC - Eye Exam Eye Exam: EOMI, Normal appearance - ENT Exam ENT Exam: Mucous Membranes Moist - Neck Exam Neck Exam: Full ROM, Normal Inspection - Respiratory Exam Respiratory Exam: Clear to Ausculation Bilateral, NORMAL BREATHING PATTERN - Cardiovascular Exam Cardiovascular Exam: REGULAR RHYTHM, +S1, +S2 - GI/Abdominal Exam GI & Abdominal Exam: Soft. absent: Distended, Tenderness - Extremities Exam Extremities Exam: Full ROM, Normal Inspection. absent: Pedal Edema, Tenderness Additional comments: left upper extremity is contracted - Neurological Exam Neurological Exam: Alert, Awake, Oriented x3 - Psychiatric Exam Psychiatric exam: Normal Affect, Normal Mood - Skin Skin Exam: Normal Color, Warm Assessment and Plan - Assessment and Plan (Free Text) Assessment: 1) CHF exacerbation - Likely secondary to CHF exacerbation- Systolic - ECHO 03/22/17 showed 4 chamber dilatation with EF 25%, TR, MR and trace AR. - Will measure daily Is and Os - Daily Weights - Fluid restriction: 1200 ml - 2gm salt heart healthy diet - Will continue: * Coreg 6.25 mg po bid * Enalapril 5 mg po qd * HCTZ 40 mg po qd * Lasix 40 mg IV qd * 2) Elevated troponins - Cardiology, Dr. Verduzco is consulted- help appreciated - Trops: 0.0120, 0.1520, 0.1330 - EKGs showed NSR with PACs. - Cholesterol panel is WNL - As per Dr. Verduzco, likely secondary to CHF exacerbation. Continue medical management: * Start Therapeutic Lovenox SC Q12H while in hospital * Aspirin 81 mg PO Daily * No Plavix at this time. 3) LE swelling - Improved. Likely secondary to CHF exacerbation - lower extremity dopplers B/L negative - Lasix IV qd 4) Anemia - H/H stable this AM - Iron studies suggest Iron deficiency anemia. - Feosol 325 mg PO daily 5) Diarrhea - Will check stool studies: c diff toxin and antigen, ova parasite, culture, leukocytes 6) HTN - Will continue home medications as stated above - Will continue to monitor vital signs 7) Hx of seizure disorder - Will continue home medication Keppra 750 mg po qd 8) Prophylaxis Lovenox 40 SC QD Protonix 40 mg IVP daily All orders and management per Dr. Adame
[2017-04-08 07:39] LABS: BASO # 0.1 K/uL (0.0-0.2); BASO % 0.6 % (0.0-2.0); EOS # 0.1 K/uL (0.0-0.7); EOS % 1.3 % (0.0-4.0); HEMOGLOBIN 11.3 g/dL (12.0-18.0); MEAN CELL VOLUME 75.1 fL (80.0-94.0); MEAN CORPUSCULAR HEMOGLOBIN 23.7 pg (27.0-31.0); MEAN CORPUSCULAR HGB CONC 31.5 g/dL (33.0-37.0); MEAN PLATELET VOLUME 9.5 fL (7.2-11.7); MONO # 0.6 K/uL (0.0-0.8); MONO % 5.6 % (0.0-10.0); NEUT # 6.5 K/uL (1.8-7.0); NEUT % 63.5 % (50.0-75.0); RBC 4.77 Mil/uL (4.40-5.90); RED CELL DISTRIBUTION WIDTH 15.1 % (11.5-14.5); WHITE BLOOD COUNT 10.2 K/uL (4.8-10.8)
[2017-04-08 07:51] LABS: ALBUMIN 3.2 g/dL (3.5-5.0)
[2017-04-08 07:54] LABS: ALB/GLOB RATIO 1.1 (1.0-2.1); AST/SGOT 14 U/L (17-59); BLOOD UREA NITROGEN 7 mg/dL (9-20); CALCIUM 8.8 mg/dl (8.6-10.4); GFR AFRICAN-AMERICAN > 60; GFR NON-AFRICAN AMERICAN > 60
[2017-04-08 07:55] LABS: ALT/SGPT 25 U/L (21-72)
--- NOTE | 2017-04-08 08:07 | CP.PCM.CON ---
History of Present Illness - History of Present Illness History of Present Illness: I was asked to see patient by Dr. Adame. Patient is a 56 year old male with a history of cardiomyopathy, HTN, CVA who presents with dyspnea. Patient has a previous known cardiomyopathy, EF <30%. The patient reports progressive dyspnea and edema. He denies chest pain. Review of Systems - Review of Systems Systems not reviewed;Unavailable: Dementia Past Patient History - Infectious Disease Hx of Infectious Diseases: None - Past Medical History & Family History Past Medical History?: Yes - Past Social History Smoking Status: Light Smoker < 10 Cigarettes Daily - CARDIAC Hx Cardiac Disorders: Yes Hx Congestive Heart Failure: Yes Hx Hypercholesterolemia: Yes Hx Hypertension: Yes - PULMONARY Hx Chronic Obstructive Pulmonary Disease (COPD): No - NEUROLOGICAL Hx Neurological Disorder: Yes Hx Seizures: Yes (last episode 02/2017) - HEENT Hx HEENT Problems: No - RENAL Hx Chronic Kidney Disease: No - ENDOCRINE/METABOLIC Hx Endocrine Disorders: No - HEMATOLOGICAL/ONCOLOGICAL Hx Blood Disorders: No - INTEGUMENTARY Hx Dermatological Problems: No - MUSCULOSKELETAL/RHEUMATOLOGICAL Hx Musculoskeletal Disorders: Yes Hx Falls: Yes - GASTROINTESTINAL Hx Gastrointestinal Disorders: Yes Hx Gastritis: Yes - GENITOURINARY/GYNECOLOGICAL Hx Genitourinary Disorders: Yes Hx Incontinence: Yes Hx Urinary Tract Infection: Yes - PSYCHIATRIC Hx Psychophysiologic Disorder: No Hx Substance Use: No (as per pt) - SURGICAL HISTORY Hx Surgeries: Yes Other/Comment: ivc filter - ANESTHESIA Hx Anesthesia: Yes Hx Anesthesia Reactions: No Meds Allergies/Adverse Reactions: Allergies Allergy/AdvReac Type Severity Reaction Status Date / Time No Known Allergies Allergy Verified 03/21/17 06:29 - Medications Medications: Current Medications Albuterol/Ipratropium (Duoneb 3 Mg/0.5 Mg (3 Ml) Ud) 3 ml INH RQ6 PRN PRN Reason: Shortness of Breath Carvedilol (Coreg) 6.25 mg PO BID [facility] Last Admin: 04/07/17 17:47 Dose: 6.25 mg Enalapril Maleate (Vasotec) 5 mg PO DAILY [facility] Last Admin: 04/07/17 10:53 Dose: 5 mg Enoxaparin Sodium (Lovenox) 120 mg SC Q12 [facility] Furosemide (Lasix) 40 mg IVP DAILY [facility] Last Admin: 04/07/17 10:52 Dose: 40 mg Hydrochlorothiazide (Hydrodiuril) 25 mg PO DAILY [facility] Last Admin: 04/07/17 10:51 Dose: 25 mg Levetiracetam (Keppra) 750 mg PO DAILY [facility] Last Admin: 04/07/17 10:50 Dose: 750 mg Oxycodone/Acetaminophen (Percocet 5/325 Mg Tab) 1 tab PO Q4H PRN PRN Reason: Pain, moderate (4-7) Stop: 04/09/17 15:46 Pantoprazole Sodium (Protonix Inj) 40 mg IVP DAILY [facility] Last Admin: 04/07/17 10:51 Dose: 40 mg Pneumococcal Polyvalent Vaccine (Pneumovax 23 Vaccine) 0.5 ml IM .ONCE ONE Stop: 04/09/17 14:01 Potassium Chloride (K-Dur 20 Meq Er Tab) 20 meq PO DAILY [facility] Last Admin: 04/07/17 10:50 Dose: 20 meq Physical Exam - Constitutional Appears: Non-toxic - Head Exam Head Exam: NORMAL INSPECTION - Eye Exam Eye Exam: Normal appearance - ENT Exam ENT Exam: Mucous Membranes Moist - Neck Exam Neck exam: Positive for: Full Rom - Cardiovascular Exam Cardiovascular Exam: REGULAR RHYTHM - GI/Abdominal Exam GI & Abdominal Exam: Normal Bowel Sounds - Extremities Exam Extremities exam: Negative for: pedal edema - Back Exam Back exam: NORMAL INSPECTION - Neurological Exam Neurological exam: Alert - Psychiatric Exam Psychiatric exam: Normal Affect - Skin Skin Exam: Normal Color Results - Vital Signs Recent Vital Signs: Last Vital Signs Temp 98.1 F 04/07/17 23:42 Pulse 74 04/08/17 04:14 Resp 20 04/07/17 23:42 BP 156/97 H 04/07/17 23:42 Pulse Ox 93 L 04/07/17 23:42 - Labs Result Diagrams: 04/09/17 07:20 04/08/17 07:21 Labs: Laboratory Results - last 24 hr 04/07/17 04/07/17 04/07/17 07:46 11:23 11:23 WBC RBC Hgb Hct MCV MCH MCHC RDW Plt Count MPV Neut % (Auto) Lymph % (Auto) [place] % (Auto) Eos % (Auto) Baso % (Auto) Neut # Lymph # [place] # Eos # Baso # Sodium 142 Potassium 3.4 L Chloride 106 Carbon Dioxide 24 Anion Gap 15 BUN 10 Creatinine 0.9 Est GFR ( Amer) > 60 Est GFR (Non-Af Amer) > 60 Random Glucose 97 Calcium 8.7 Iron 58 TIBC 281 % Saturation 21 Ferritin 31.2 Total Bilirubin 0.7 AST 16 L D ALT 23 Alkaline Phosphatase 59 Troponin I Total Protein 5.9 L Albumin 3.0 L Globulin 2.8 Albumin/Globulin Ratio 1.1 Vitamin B12 282 Folate 7.6 04/07/17 04/07/17 04/08/17 11:23 19:48 07:21 WBC 10.2 RBC 4.77 Hgb 11.3 L Hct 35.8 MCV 75.1 L MCH 23.7 L MCHC 31.5 L RDW 15.1 H Plt Count 216 MPV 9.5 Neut % (Auto) 63.5 Lymph % (Auto) 29.0 [place] % (Auto) 5.6 Eos % (Auto) 1.3 Baso % (Auto) 0.6 Neut # 6.5 Lymph # 3.0 [place] # 0.6 Eos # 0.1 Baso # 0.1 Sodium Potassium Chloride Carbon Dioxide Anion Gap BUN Creatinine Est GFR ( Amer) Est GFR (Non-Af Amer) Random Glucose Calcium Iron TIBC % Saturation Ferritin Total Bilirubin AST ALT Alkaline Phosphatase Troponin I 0.1520 H* 0.1250 H* Total Protein Albumin Globulin Albumin/Globulin Ratio Vitamin B12 Folate 04/08/17 07:21 WBC RBC Hgb Hct MCV MCH MCHC RDW Plt Count MPV Neut % (Auto) Lymph % (Auto) [place] % (Auto) Eos % (Auto) Baso % (Auto) Neut # Lymph # [place] # Eos # Baso # Sodium 142 Potassium 3.1 L Chloride 103 Carbon Dioxide 25 Anion Gap 17 BUN 7 L Creatinine 0.9 Est GFR ( Amer) > 60 Est GFR (Non-Af Amer) > 60 Random Glucose 96 Calcium 8.8 Iron TIBC % Saturation Ferritin Total Bilirubin 0.6 AST 14 L ALT 25 Alkaline Phosphatase 61 Troponin I Total Protein 6.1 L Albumin 3.2 L Globulin 2.9 Albumin/Globulin Ratio 1.1 Vitamin B12 Folate - EKG Data EKG Interpreted by: Myself EKG shows normal: Sinus rhythm Assessment & Plan (1) CHF exacerbation Assessment and Plan: will recommend echocardiogram to assess LV function. diuresis. Status: Acute (2) HTN (hypertension) Assessment and Plan: will monitor blood pressure Status: Acute
[2017-04-08 08:38] LABS: CK-MB 0.48 ng/mL (0.0-3.38)
[2017-04-08] MEDS: Enoxaparin 120 mg Syringe SC SCH ×2 (09:39→21:51)
[2017-04-08] MEDS: Potassium Chloride 20 mEq ER Tab PO SCH (09:39)
--- NOTE | 2017-04-08 19:18 | CARD ---
APPROVED REPORT EKG Measurement Heart [id number] <Conclusion> Sinus rhythm with frequent PVCs Nonspecific intraventricular block Cannot rule out Anterior infarct, age undetermined Abnormal ECG
[2017-04-09 07:34] LABS: BASO # 0.1 K/uL (0.0-0.2); BASO % 0.6 % (0.0-2.0); EOS # 0.1 K/uL (0.0-0.7); EOS % 1.2 % (0.0-4.0); HEMOGLOBIN 11.8 g/dL (12.0-18.0); LYMPH # 2.8 K/uL (1.0-4.3); LYMPH % 29.4 % (20.0-40.0); MEAN CELL VOLUME 75.2 fL (80.0-94.0); MEAN CORPUSCULAR HEMOGLOBIN 23.5 pg (27.0-31.0); MEAN CORPUSCULAR HGB CONC 31.3 g/dL (33.0-37.0); MEAN PLATELET VOLUME 8.7 fL (7.2-11.7); MONO # 0.7 K/uL (0.0-0.8); MONO % 7.3 % (0.0-10.0); NEUT # 5.9 K/uL (1.8-7.0); NEUT % 61.5 % (50.0-75.0); RBC 5.01 Mil/uL (4.40-5.90); RED CELL DISTRIBUTION WIDTH 15.3 % (11.5-14.5); WHITE BLOOD COUNT 9.6 K/uL (4.8-10.8)
[2017-04-09 08:22] LABS: ALBUMIN 3.4 g/dL (3.5-5.0)
[2017-04-09 08:24] LABS: GFR AFRICAN-AMERICAN > 60; GFR NON-AFRICAN AMERICAN > 60
[2017-04-09 08:25] LABS: ALB/GLOB RATIO 1.1 (1.0-2.1); ALT/SGPT 26 U/L (21-72); AST/SGOT 18 U/L (17-59); BLOOD UREA NITROGEN 10 mg/dL (9-20); CALCIUM 8.9 mg/dl (8.6-10.4); MAGNESIUM 1.8 mg/dL (1.6-2.3)
[2017-04-09] MEDS: Enoxaparin 120 mg Syringe SC SCH ×2 (09:52→21:35)
[2017-04-09] MEDS: Potassium Chloride 20 mEq ER Tab PO SCH (09:53)
[2017-04-09] MEDS ORDERED: Potassium Chloride 20 mEq ER Tab PO ONE ×3 (10:00→14:00)
--- NOTE | 2017-04-09 10:33 | CP.PCM.PN ---
Subjective - Date & Time of Evaluation Date of Evaluation: 04/09/17 Time of Evaluation: 08:55 - Subjective Subjective: Medicine Note- Dr Adame's service Patient seen and examined. Patient states that he is feeling better today and denies chest pain. Patient states that he is breathing comfortably on room air and that his lower extremity swelling has significantly improved since admission. Patient was encouraged to get out of bed as much as possible. Patient is tolerating his appetite well. He states that he has not had any more episodes of diarrhea today. He had one episode of watery stool, non-bloody , yesterday morning. Denies fever, chills, nausea, vomiting, chest pain, shortness of breath, cough, palpitations, headache, dizziness, and abdominal pain. Objective - Vital Signs/Intake and Output Vital Signs (last 24 hours): Temp Pulse Resp BP Pulse Ox 98.6 F 89 20 158/79 H 95 04/08/17 23:35 04/09/17 09:10 04/08/17 23:35 04/09/17 09:53 04/08/17 23:35 - Medications Medications: Current Medications Albuterol/Ipratropium (Duoneb 3 Mg/0.5 Mg (3 Ml) Ud) 3 ml INH RQ6 PRN PRN Reason: Shortness of Breath Aspirin (Ecotrin) 81 mg PO DAILY [facility] Last Admin: 04/09/17 09:53 Dose: 81 mg Carvedilol (Coreg) 6.25 mg PO BID [facility] Last Admin: 04/09/17 09:53 Dose: 6.25 mg Enalapril Maleate (Vasotec) 5 mg PO DAILY [facility] Last Admin: 04/09/17 09:53 Dose: 5 mg Enoxaparin Sodium (Lovenox) 110 mg SC Q12 [facility] Last Admin: 04/09/17 09:52 Dose: 110 mg Famotidine (Pepcid) 20 mg PO BID [facility] Last Admin: 04/09/17 09:53 Dose: 20 mg Ferrous Sulfate (Feosol) 325 mg PO DAILY [facility] Last Admin: 04/09/17 09:53 Dose: 325 mg Furosemide (Lasix) 40 mg IVP DAILY [facility] Last Admin: 04/09/17 09:53 Dose: 40 mg Hydrochlorothiazide (Hydrodiuril) 25 mg PO DAILY [facility] Last Admin: 04/09/17 09:53 Dose: 25 mg Levetiracetam (Keppra) 750 mg PO DAILY [facility] Last Admin: 04/09/17 09:52 Dose: 750 mg Pneumococcal Polyvalent Vaccine (Pneumovax 23 Vaccine) 0.5 ml IM .ONCE ONE Stop: 04/09/17 14:01 Potassium Chloride (K-Dur 20 Meq Er Tab) 20 meq PO DAILY [facility] Last Admin: 04/09/17 09:53 Dose: 20 meq Potassium Chloride (K-Dur 20 Meq Er Tab) 40 meq PO ONCE ONE Stop: 04/09/17 14:01 - Labs Labs: 04/09/17 07:20 04/09/17 04:00 PT 12.4 SECONDS (9.7-12.2) H 04/06/17 09:43 INR 1.1 04/06/17 09:43 APTT 30 SECONDS (21-34) 04/06/17 09:43 - Constitutional Appears: Non-toxic, No Acute Distress - Head Exam Head Exam: ATRAUMATIC, NORMOCEPHALIC - Eye Exam Eye Exam: EOMI, Normal appearance Pupil Exam: NORMAL ACCOMODATION - ENT Exam ENT Exam: Mucous Membranes Moist - Neck Exam Neck Exam: Full ROM, Normal Inspection - Respiratory Exam Respiratory Exam: Decreased Breath Sounds, NORMAL BREATHING PATTERN. absent: Accessory Muscle Use, Wheezes, Respiratory Distress - Cardiovascular Exam Cardiovascular Exam: REGULAR RHYTHM, +S1, +S2 - GI/Abdominal Exam GI & Abdominal Exam: Soft, Normal Bowel Sounds. absent: Distended, Firm, Guarding, Rigid, Tenderness - Extremities Exam Extremities Exam: Full ROM, Normal Inspection. absent: Pedal Edema, Tenderness - Neurological Exam Neurological Exam: Alert, Awake, Oriented x3 - Psychiatric Exam Psychiatric exam: Normal Affect, Normal Mood - Skin Skin Exam: Dry, Intact, Normal Color, Warm Assessment and Plan - Assessment and Plan (Free Text) Assessment: 1) CHF exacerbation Improving, ECHO 03/22/17 showed 4 chamber dilatation with EF 25%, TR, MR and trace AR, Systolic dysfunction 04/06 Chest Xray: Worsening reticular opacities in the lungs may represent worsening pulmonary congestion. Cardiomegaly. f/u repeat Chest Xray daily Is and Os Daily Weights Fluid restriction: 1200 ml 2gm salt heart healthy diet Will continue: * Coreg 6.25 mg po bid * Enalapril 5 mg po qd * HCTZ 40 mg po qd * Lasix 40 mg IV qd 2) Elevated troponins Cardiology, Dr. Verduzco is consulted- help appreciated Trops: 0.0120, 0.1520, 0.1330 EKGs showed NSR with PACs. Cholesterol 157, LDL 107, HDL 38, Triglycerides 44 HgA1C 5.0 ECHO 03/22/17 showed 4 chamber dilatation with EF 25%, TR, MR and trace AR, Systolic dysfunction As per Dr. Verduzco, likely secondary to CHF exacerbation. Continue medical management: * Start Therapeutic Lovenox 110mg SC Q12H while in hospital * Aspirin 81 mg PO Daily * No Plavix at this time. 3) LE swelling Improved. Likely secondary to CHF exacerbation Lower extremity dopplers B/L negative Lasix IV qd 4) Anemia H/H stable this AM Iron studies normal but low MCV. Feosol 325 mg PO daily 5) Diarrhea Improved Will check stool studies: c diff toxin and antigen, ova parasite, culture, leukocytes (has not been collected yet because patient has not had bowel movement in 24 hours) 6) HTN Currently controlled. Will continue home medications as stated above: * Coreg 6.25 mg po bid * Enalapril 5 mg po qd * HCTZ 40 mg po qd * Lasix 40 mg IV qd Will continue to monitor vital signs q4h and adjust meds as needed 7) Hx of seizure disorder No seizures since admission. Will continue home medication Keppra 750 mg po qd 8) Vitamin B12 deficiency Vit B12 low 282 Recommend starting Vit B12 1000mg PO supplement daily 8) Prophylaxis Lovenox 40 SC QD Protonix 40 mg IVP daily SCDs All orders and management per Dr. Adame
--- NOTE | 2017-04-09 12:00 | RAD ---
Chest x-ray single frontal view History: CHF exacerbation. Comparison: None available. Findings: Moderate venous congestion. Elevated left hemidiaphragm. Prominent gastric bubble projecting under the left hemidiaphragm. Cardiomegaly. Right hilar prominence. Biapical pleural thickening with upper lobe granulomatous changes. Impression: Moderate venous congestion. Elevated left hemidiaphragm. Prominent gastric bubble projecting under the left hemidiaphragm. Cardiomegaly. Right hilar prominence. Biapical pleural thickening with upper lobe granulomatous changes.
[2017-04-09] MEDS ORDERED: Pneumococcal 23-Valent Vaccine IM ONE (14:00)
--- NOTE | 2017-04-10 07:35 | CP.PCM.PN ---
Subjective - Date & Time of Evaluation Date of Evaluation: 04/10/17 Time of Evaluation: 09:15 - Subjective Subjective: Medicine Note- Dr Adame's service Patient seen and examined. Patient states that he feels well today. He has not had any more bowel movements in the past 2 days and says his diarrhea resolved. Patient denies chest pain, abdominal pain, leg swelling, palpitations , and dizziness. Objective - Vital Signs/Intake and Output Vital Signs (last 24 hours): Temp Pulse Resp BP Pulse Ox 98.3 F 69 20 146/84 97 04/10/17 00:00 04/10/17 03:58 04/10/17 00:00 04/10/17 00:00 04/10/17 00:00 Intake and Output: 04/10/17 04/10/17 06:59 18:59 Output Total 200 Balance -200 - Medications Medications: Current Medications Albuterol/Ipratropium (Duoneb 3 Mg/0.5 Mg (3 Ml) Ud) 3 ml INH RQ6 PRN PRN Reason: Shortness of Breath Aspirin (Ecotrin) 81 mg PO DAILY [facility] Last Admin: 04/09/17 09:53 Dose: 81 mg Carvedilol (Coreg) 6.25 mg PO BID [facility] Last Admin: 04/09/17 17:31 Dose: 6.25 mg Cyanocobalamin (Vitamin B12 1000 Mcg Tab) 1,000 mcg PO DAILY [facility] Last Admin: 04/09/17 14:21 Dose: 1,000 mcg Enalapril Maleate (Vasotec) 5 mg PO DAILY [facility] Last Admin: 04/09/17 09:53 Dose: 5 mg Enoxaparin Sodium (Lovenox) 110 mg SC Q12 [facility] Last Admin: 04/09/17 21:35 Dose: 110 mg Famotidine (Pepcid) 20 mg PO BID [facility] Last Admin: 04/09/17 17:31 Dose: 20 mg Ferrous Sulfate (Feosol) 325 mg PO DAILY [facility] Last Admin: 04/09/17 09:53 Dose: 325 mg Furosemide (Lasix) 40 mg IVP DAILY [facility] Last Admin: 04/09/17 09:53 Dose: 40 mg Hydrochlorothiazide (Hydrodiuril) 25 mg PO DAILY [facility] Last Admin: 04/09/17 09:53 Dose: 25 mg Levetiracetam (Keppra) 750 mg PO DAILY [facility] Last Admin: 04/09/17 09:52 Dose: 750 mg Potassium Chloride (K-Dur 20 Meq Er Tab) 20 meq PO DAILY [facility] Last Admin: 04/09/17 09:53 Dose: 20 meq - Labs Labs: 04/09/17 07:20 04/09/17 04:00 PT 12.4 SECONDS (9.7-12.2) H 04/06/17 09:43 INR 1.1 04/06/17 09:43 APTT 30 SECONDS (21-34) 04/06/17 09:43 - Additional Findings Additional findings: - Constitutional Appears: Non-toxic, No Acute Distress - Head Exam Head Exam: ATRAUMATIC, NORMOCEPHALIC - Eye Exam Eye Exam: EOMI, Normal appearance Pupil Exam: NORMAL ACCOMODATION - ENT Exam ENT Exam: Mucous Membranes Moist - Neck Exam Neck Exam: Full ROM, Normal Inspection - Respiratory Exam Respiratory Exam: Decreased Breath Sounds, NORMAL BREATHING PATTERN. absent: Accessory Muscle Use, Wheezes, Respiratory Distress - Cardiovascular Exam Cardiovascular Exam: REGULAR RHYTHM, +S1, +S2 - GI/Abdominal Exam GI & Abdominal Exam: Soft, Normal Bowel Sounds. absent: Distended, Firm, Guarding, Rigid, Tenderness - Extremities Exam Extremities Exam: Full ROM, Normal Inspection. absent: Pedal Edema, Tenderness - Neurological Exam Neurological Exam: Alert, Awake, Oriented x3 - Psychiatric Exam Psychiatric exam: Normal Affect, Normal Mood - Skin Skin Exam: Dry, Intact, Normal Color, Warm Assessment and Plan - Assessment and Plan (Free Text) Assessment: 1) CHF exacerbation ECHO 03/22/17 showed 4 chamber dilatation with EF 25%, TR, MR and trace AR, Systolic dysfunction. Will discuss results with Dr Verduzco and follow up recommendations. 04/06 Chest Xray: Worsening reticular opacities in the lungs may represent worsening pulmonary congestion. Cardiomegaly. f/u repeat Chest Xray daily Is and Os Daily Weights Fluid restriction: 1200 ml 2gm salt heart healthy diet Will continue: * Coreg 6.25 mg po bid * Enalapril 5 mg po qd * HCTZ 40 mg po qd * Lasix 40 mg IV qd 2) Elevated troponins Cardiology, Dr. Verduzco is consulted- help appreciated Trops: 0.0120, 0.1520, 0.1330 EKGs showed NSR with PACs. Cholesterol 157, LDL 107, HDL 38, Triglycerides 44 HgA1C 5.0 ECHO 03/22/17 showed 4 chamber dilatation with EF 25%, TR, MR and trace AR, Systolic dysfunction As per Dr. Verduzco, likely secondary to CHF exacerbation. Continue medical management: * Therapeutic Lovenox 110mg SC Q12H while in hospital * Aspirin 81 mg PO Daily * No Plavix at this time. 3) LE swelling Improved. Likely secondary to CHF exacerbation Lower extremity dopplers B/L negative Lasix 40 IV qd 4) Anemia H/H stable this AM Iron studies normal but low MCV. Feosol 325 mg PO daily 5) Diarrhea Improved Will check stool studies: c diff toxin and antigen, ova parasite, culture, leukocytes (has not been collected yet because patient has not had bowel movement in 24 hours) 6) HTN Currently controlled. Will continue home medications as stated above: * Coreg 6.25 mg po bid * Enalapril 5 mg po qd * HCTZ 40 mg po qd * Lasix 40 mg IV qd Will continue to monitor vital signs q4h and adjust meds as needed 7) Hx of seizure disorder No seizures since admission. Will continue home medication Keppra 750 mg po qd 8) Vitamin B12 deficiency Vit B12 low 282 Recommend starting Vit B12 1000mg PO supplement daily 9) Prophylaxis Lovenox 40 SC QD Protonix 40 mg IVP daily SCDs Patient is homeless and lives [facility] [place] animal shelter worker consulted. All orders and management per Dr. Adame
[2017-04-10 08:07] LABS: BASO % 0.5 % (0.0-2.0); EOS # 0.1 K/uL (0.0-0.7); EOS % 1.3 % (0.0-4.0); LYMPH # 3.1 K/uL (1.0-4.3); LYMPH % 31.7 % (20.0-40.0); MEAN PLATELET VOLUME 8.9 fL (7.2-11.7); MONO # 0.8 K/uL (0.0-0.8); MONO % 7.7 % (0.0-10.0); NEUT # 5.8 K/uL (1.8-7.0); NEUT % 58.8 % (50.0-75.0); RBC 4.99 Mil/uL (4.40-5.90); RED CELL DISTRIBUTION WIDTH 15.1 % (11.5-14.5); WHITE BLOOD COUNT 9.9 K/uL (4.8-10.8)
[2017-04-10 08:26] LABS: ALBUMIN 3.4 g/dL (3.5-5.0)
[2017-04-10 08:29] LABS: ALB/GLOB RATIO 1.1 (1.0-2.1); AST/SGOT 15 U/L (17-59); GFR AFRICAN-AMERICAN > 60; GFR NON-AFRICAN AMERICAN > 60
[2017-04-10 08:30] LABS: ALT/SGPT 19 U/L (21-72); BLOOD UREA NITROGEN 11 mg/dL (9-20); CALCIUM 8.7 mg/dl (8.6-10.4); MAGNESIUM 1.7 mg/dL (1.6-2.3)
[2017-04-10] MEDS ORDERED: Potassium Chloride 20 mEq ER Tab PO ONE ×2 (09:46→12:00)
[2017-04-10] MEDS: Enoxaparin 120 mg Syringe SC SCH ×2 (10:56→21:46)
--- NOTE | 2017-04-10 14:43 | CP.PCM.PN ---
Subjective - Date & Time of Evaluation Date of Evaluation: 04/10/17 Time of Evaluation: 14:20 - Subjective Subjective: patient feels better. no current chest pain or dyspnea. Objective - Vital Signs/Intake and Output Vital Signs (last 24 hours): Temp Pulse Resp BP Pulse Ox 98.2 F 65 20 135/89 96 04/10/17 08:51 04/10/17 08:51 04/10/17 08:51 04/10/17 10:58 04/10/17 08:51 Intake and Output: 04/10/17 04/10/17 06:59 18:59 Output Total 200 Balance -200 - Medications Medications: Current Medications Albuterol/Ipratropium (Duoneb 3 Mg/0.5 Mg (3 Ml) Ud) 3 ml INH RQ6 PRN PRN Reason: Shortness of Breath Aspirin (Ecotrin) 81 mg PO DAILY [facility] Last Admin: 04/09/17 09:53 Dose: 81 mg Carvedilol (Coreg) 6.25 mg PO BID [facility] Last Admin: 04/10/17 10:57 Dose: 6.25 mg Cyanocobalamin (Vitamin B12 1000 Mcg Tab) 1,000 mcg PO DAILY [facility] Last Admin: 04/10/17 10:58 Dose: 1,000 mcg Enalapril Maleate (Vasotec) 5 mg PO DAILY [facility] Last Admin: 04/10/17 10:58 Dose: 5 mg Enoxaparin Sodium (Lovenox) 110 mg SC Q12 [facility] Last Admin: 04/10/17 10:56 Dose: 110 mg Famotidine (Pepcid) 20 mg PO BID [facility] Last Admin: 04/10/17 10:58 Dose: 20 mg Ferrous Sulfate (Feosol) 325 mg PO DAILY [facility] Last Admin: 04/10/17 10:58 Dose: 325 mg Furosemide (Lasix) 40 mg IVP DAILY [facility] Last Admin: 04/10/17 10:58 Dose: 40 mg Hydrochlorothiazide (Hydrodiuril) 25 mg PO DAILY [facility] Last Admin: 04/10/17 10:57 Dose: 25 mg Levetiracetam (Keppra) 750 mg PO DAILY [facility] Last Admin: 04/10/17 10:57 Dose: 750 mg Potassium Chloride (K-Dur 20 Meq Er Tab) 20 meq PO DAILY [facility] Last Admin: 04/09/17 09:53 Dose: 20 meq - Labs Labs: 04/10/17 08:01 04/10/17 08:01 PT 12.4 SECONDS (9.7-12.2) H 04/06/17 09:43 INR 1.1 04/06/17 09:43 APTT 30 SECONDS (21-34) 04/06/17 09:43 - Constitutional Appears: Non-toxic - Head Exam Head Exam: NORMAL INSPECTION - Eye Exam Eye Exam: Normal appearance - ENT Exam ENT Exam: Mucous Membranes Moist - Neck Exam Neck Exam: Full ROM - Respiratory Exam Respiratory Exam: Decreased Breath Sounds - Cardiovascular Exam Cardiovascular Exam: REGULAR RHYTHM - GI/Abdominal Exam GI & Abdominal Exam: Normal Bowel Sounds - Rectal Exam Rectal Exam: Deferred - Extremities Exam Extremities Exam: Pedal Edema - Back Exam Back Exam: NORMAL INSPECTION - Neurological Exam Neurological Exam: Alert - Psychiatric Exam Psychiatric exam: Normal Affect - Skin Skin Exam: Normal Color Assessment and Plan (1) CHF exacerbation Assessment & Plan: recommend continued medical therapy has noted LV dysfunction. Ideally can consider Lifevest, may be difficult due to patient's current living situation. Status: Acute (2) HTN (hypertension) Assessment & Plan: improved Status: Acute
[2017-04-10] MEDS: Potassium Chloride 20 mEq ER Tab PO SCH (15:57)
--- NOTE | 2017-04-11 07:30 | CP.PCM.PN ---
Subjective - Date & Time of Evaluation Date of Evaluation: 04/11/17 Time of Evaluation: 09:00 - Subjective Subjective: Medicine Progress Note: Patient seen and examined at bedside this AM. Patient reports feeling well this morning and does not feel short of breath. Admits swelling in LE has resolved. Denies chest pain this AM. Patient reports diarrhea has resolved. He is tolerating diet well. No other complaints at this time. Objective - Vital Signs/Intake and Output Vital Signs (last 24 hours): Temp Pulse Resp BP Pulse Ox 98.1 F 69 20 129/83 96 04/11/17 00:00 04/11/17 01:00 04/11/17 00:00 04/11/17 00:00 04/11/17 00:00 Intake and Output: 04/11/17 04/11/17 06:59 18:59 Intake Total 1140 Output Total 2300 Balance -1160 - Medications Medications: Current Medications Albuterol/Ipratropium (Duoneb 3 Mg/0.5 Mg (3 Ml) Ud) 3 ml INH RQ6 PRN PRN Reason: Shortness of Breath Aspirin (Ecotrin) 81 mg PO DAILY [facility] Last Admin: 04/10/17 10:57 Dose: 81 mg Carvedilol (Coreg) 6.25 mg PO BID [facility] Last Admin: 04/10/17 17:54 Dose: 6.25 mg Cyanocobalamin (Vitamin B12 1000 Mcg Tab) 1,000 mcg PO DAILY [facility] Last Admin: 04/10/17 10:58 Dose: 1,000 mcg Enalapril Maleate (Vasotec) 5 mg PO DAILY [facility] Last Admin: 04/10/17 10:58 Dose: 5 mg Enoxaparin Sodium (Lovenox) 110 mg SC Q12 [facility] Last Admin: 04/10/17 21:46 Dose: 110 mg Famotidine (Pepcid) 20 mg PO BID [facility] Last Admin: 04/10/17 17:54 Dose: 20 mg Ferrous Sulfate (Feosol) 325 mg PO DAILY [facility] Last Admin: 04/10/17 10:58 Dose: 325 mg Furosemide (Lasix) 40 mg IVP DAILY [facility] Last Admin: 04/10/17 10:58 Dose: 40 mg Hydrochlorothiazide (Hydrodiuril) 25 mg PO DAILY [facility] Last Admin: 04/10/17 10:57 Dose: 25 mg Levetiracetam (Keppra) 750 mg PO DAILY [facility] Last Admin: 04/10/17 10:57 Dose: 750 mg Potassium Chloride (K-Dur 20 Meq Er Tab) 20 meq PO DAILY [facility] Last Admin: 04/10/17 15:57 Dose: Not Given - Labs Labs: 04/10/17 08:01 04/10/17 08:01 PT 12.4 SECONDS (9.7-12.2) H 04/06/17 09:43 INR 1.1 04/06/17 09:43 APTT 30 SECONDS (21-34) 04/06/17 09:43 - Constitutional Appears: No Acute Distress - Head Exam Head Exam: NORMAL INSPECTION, NORMOCEPHALIC - Eye Exam Eye Exam: EOMI, Normal appearance - ENT Exam ENT Exam: Mucous Membranes Moist - Respiratory Exam Respiratory Exam: Clear to Ausculation Bilateral, NORMAL BREATHING PATTERN - Cardiovascular Exam Cardiovascular Exam: REGULAR RHYTHM, +S1, +S2 - GI/Abdominal Exam GI & Abdominal Exam: Soft. absent: Tenderness - Extremities Exam Additional comments: +contracted left arm - Neurological Exam Neurological Exam: Alert, Awake, Oriented x3 - Psychiatric Exam Psychiatric exam: Normal Affect, Normal Mood - Skin Skin Exam: Dry, Normal Color, Warm Assessment and Plan - Assessment and Plan (Free Text) Assessment: 1) Systolic CHF exacerbation ECHO 03/22/17 showed 4 chamber dilatation with EF 25%, TR, MR and trace AR, Systolic dysfunction. 04/06 Chest Xray: Worsening reticular opacities in the lungs may represent worsening pulmonary congestion. Cardiomegaly. f/u repeat Chest Xray showed moderate venous congestion 04/09/17/ daily Is and Os Daily Weights Fluid restriction: 1200 ml 2gm salt heart healthy diet Patient will be discharged today as per Dr. Adame with: * Coreg 6.25 mg po bid * Enalapril 5 mg po qd * HCTZ 40 mg po qd * Lasix 20 mg Po BID As per cardio, continue medical therapy for noted LV dysfunction. Ideally can consider Lifevest, may be difficult due to patient's current living situation. Patient will history of poor compliance and follow up. Patient will be discharged today with need for cardio and outpatient follow up as per Dr. Adame. 2) Elevated troponins Cardiology, Dr. Verduzco is consulted- help appreciated Trops: 0.0120, 0.1520, 0.1330 EKGs showed NSR with PACs. Cholesterol 157, LDL 107, HDL 38, Triglycerides 44 HgA1C 5.0 ECHO 03/22/17 showed 4 chamber dilatation with EF 25%, TR, MR and trace AR, Systolic dysfunction As per Dr. Verduzco, likely secondary to CHF exacerbation. Continue medical management: * Therapeutic Lovenox 110mg SC Q12H while in hospital * Aspirin 81 mg PO Daily * No Plavix at this time. 3) LE swelling Improved. Likely secondary to CHF exacerbation Lower extremity dopplers B/L negative Stop Lasix 40 IV qd Will D/C on Lasix 20 mg PO BID 4) Anemia H/H stable this AM Iron studies normal but low MCV. Rx Feosol 325 mg PO daily 5) Diarrhea Resolved Stool leukocytes negative 6) HTN Currently controlled. Will continue home medications as stated above: * Coreg 6.25 mg po bid * Enalapril 5 mg po qd * HCTZ 40 mg po qd Will continue to monitor vital signs q4h and adjust meds as needed 7) Hx of seizure disorder No seizures since admission. Will continue home medication Keppra 750 mg po qd 8) Vitamin B12 deficiency Vit B12 low 282 Recommend starting Vit B12 1000mg PO supplement daily 9) Prophylaxis Therapeutic Lovenox 110mg SC Q12H while in hospital Protonix 40 mg IVP daily SCDs Patient is homeless and lives [place]. cardroom worker consulted. Will discharge patient as per Dr. Adame. All orders and management per Dr. Adame
[2017-04-11] MEDS ORDERED: Potassium Chloride 20 mEq ER Tab PO ONE (07:45)
[2017-04-11 07:46] LABS: BASO # 0.1 K/uL (0.0-0.2); BASO % 0.5 % (0.0-2.0); EOS # 0.2 K/uL (0.0-0.7); EOS % 1.7 % (0.0-4.0); HEMOGLOBIN 12.2 g/dL (12.0-18.0); LYMPH # 3.5 K/uL (1.0-4.3); LYMPH % 33.7 % (20.0-40.0); MEAN CORPUSCULAR HEMOGLOBIN 23.5 pg (27.0-31.0); MEAN CORPUSCULAR HGB CONC 31.4 g/dL (33.0-37.0); MEAN PLATELET VOLUME 9.5 fL (7.2-11.7); MONO # 0.7 K/uL (0.0-0.8); MONO % 6.4 % (0.0-10.0); NEUT # 5.9 K/uL (1.8-7.0); NEUT % 57.7 % (50.0-75.0); RBC 5.18 Mil/uL (4.40-5.90); RED CELL DISTRIBUTION WIDTH 15.5 % (11.5-14.5); WHITE BLOOD COUNT 10.3 K/uL (4.8-10.8)
[2017-04-11 08:05] LABS: ALBUMIN 3.5 g/dL (3.5-5.0)
[2017-04-11 08:07] LABS: GFR AFRICAN-AMERICAN > 60; GFR NON-AFRICAN AMERICAN > 60
[2017-04-11 08:08] LABS: ALB/GLOB RATIO 1.1 (1.0-2.1); ALT/SGPT 23 U/L (21-72); AST/SGOT 16 U/L (17-59); BLOOD UREA NITROGEN 15 mg/dL (9-20); CALCIUM 8.9 mg/dl (8.6-10.4)
[2017-04-11 08:09] LABS: MAGNESIUM 1.8 mg/dL (1.6-2.3)
[2017-04-11 08:51] VITALS: BP 141/91; PULSE 66; TEMP 97.8; O2SAT 98
[2017-04-11] MEDS: Potassium Chloride 20 mEq ER Tab PO SCH (09:12)
[2017-04-11] MEDS: Enoxaparin 120 mg Syringe SC SCH (09:13)
--- NOTE | 2017-04-14 11:18 | CP.PCM.PN ---
Subjective - Date & Time of Evaluation Date of Evaluation: 04/11/17 Time of Evaluation: 09:00 - Subjective Subjective: CHF CORE MEASURES ADDENDUM Objective - Vital Signs/Intake and Output Vital Signs (last 24 hours): Temp Pulse Resp BP Pulse Ox 97.8 F 66 20 141/91 H 98 04/11/17 08:50 04/11/17 08:50 04/11/17 08:50 04/11/17 09:14 04/11/17 08:50 - Labs Labs: 04/11/17 07:34 04/11/17 07:34 PT 12.4 SECONDS (9.7-12.2) H 04/06/17 09:43 INR 1.1 04/06/17 09:43 APTT 30 SECONDS (21-34) 04/06/17 09:43 Heart Failure Core Measure - Heart Failure Ejection Fraction: Less Than 40 % Left Ventricular Function to be assessed after discharge: Yes TRACEY Inhibitor Prescribed: Yes Beta-Sonia Prescribed: Carvedilol Angiotensin II Receptor Sonia Prescribed: No Contraindication/Reason for not providing: Pt on TRACEY inhibitor AnticoagulationTherapy for Atrial Fibrillation/Atrialflutter: No Contraindication/Reason for not providing: No Atrial fibrillation Aldosterone Antagonist Prescribed: No Contraindication/Reason for not providing: Patient on TRACEY inhibitor Hydralazine Nitrate Prescribed: No Contraindication/Reason for not providing: No indicated Implantable Cardioverter Defibrillator Therapy: No Contraindication/Reason for not providing: Patient with poor compliance. Will need to follow up for OP cardio eval. Cardiac Resynchronization Therapy Prescribed: No Contraindication/Reason for not providing: Not indicated - Follow up Will be discharged to: Home Follow Up Date (must be within 7 days from discharge): 04/18/17 Follow Up Time: 09:00 ([facility] )
== END 2017-04-11 13:45 | disposition home or self-care (01) | DRG 127 ==
LOC: C.ER 08:39 → C.9E 12:00 → C.5T 12:36 → OBSVTOIN 04-08 13:28
PROVIDERS: ADMIT Internal Medicine Pulmonary Disease; ATTEND Internal Medicine Pulmonary Disease
DX: I11.0 Hypertensive heart disease with heart failure (principal); I42.9 Cardiomyopathy, unspecified; I69.354 Hemiplegia and hemiparesis following cerebral infarction affecting left non-dominant side; F17.210 Nicotine dependence, cigarettes, uncomplicated; D50.9 Iron deficiency anemia, unspecified; E53.8 Deficiency of other specified B group vitamins; G40.909 Epilepsy, unspecified, not intractable, without status epilepticus; I50.23 Acute on chronic systolic (congestive) heart failure; Z91.14 Patient's other noncompliance with medication regimen; R19.7 Diarrhea, unspecified

== ENCOUNTER 2017-04-30 07:32 | Inpatient (IN) | payer MEDICAID ==
[2017-04-30 07:38] VITALS: BMI 34.0
--- NOTE | 2017-04-30 08:07 | C.PDOC ---
History Of Present Illness RECUR SOB THIS MORNING, RECUR B/L LEG EDEMA X 1 WEEK. +HUTCHISON. NO FEVER, CP. MULT PRIOR ADMISSIONS FOR CHF EXAC. 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, EXAM MILD DIST NONTOX HEENT NEG LUNGS +RETRACTIONS +TACHYPNEA B/L RALES BASILAR 3+PITTING EDEMA B/L CV RRR REMAINDER NEG Time Seen by Provider: 04/30/17 08:05 Chief Complaint (Nursing): Shortness Of Breath History Per: Patient History/Exam Limitations: no limitations Onset/Duration Of Symptoms: Hrs Current Symptoms Are (Timing): Still Present Associated Symptoms: denies: Fever, Chest Pain, Productive Cough, Dizziness Recent travel outside of the [place]: No Past Medical History Reviewed: Historical Data, Nursing Documentation, Vital Signs Vital Signs: Last Vital Signs Temp 97.9 F 04/30/17 07:55 Pulse 69 04/30/17 08:53 Resp 22 04/30/17 08:43 BP 157/106 H 04/30/17 08:53 Pulse Ox 95 04/30/17 08:58 - Medical History PMH: CHF, COPD, CVA, Deep Vein Thrombosis, Gastritis, HTN, Hypercholesterolemia , Hyperlipidemia, Peripheral Edema, Pulmonary Embolism, Seizures (last episode ) Denies: Asthma, Atrial Fibrillation, Bronchitis, Cardia Arrhythmia, Emphysema , Mitral Valve Prolapse, Pneumonia, Chronic Kidney Disease, Sleep Apnea Surgical History: Denies: Pacemaker Family History: States: Unknown Family Hx - Social History Hx Alcohol Use: No Hx Substance Use: No (as per pt) - Immunization History Hx Influenza Vaccination: Yes Review Of Systems Except As Marked, All Systems Reviewed And Found Negative. Constitutional: Negative for: Fever, Chills Cardiovascular: Positive for: Edema (B/L LOWER EXT). Negative for: Chest Pain Respiratory: Positive for: Shortness of Breath, SOB with Excertion Gastrointestinal: Negative for: Nausea, Vomiting, Abdominal Pain Skin: Negative for: Rash Neurological: Negative for: Headache, Dizziness Physical Exam - Physical Exam Appears: Non-toxic, Other (MILD DISTRESS) Skin: Normal Color, Warm, Dry Head: Atraumatic, Normacephalic Chest: Symmetrical Cardiovascular: Rhythm Regular Respiratory: Accessory Muscle Use, Rales (BILATERALLY), No Rhonchi, No Stridor, Other (+TACHYPNEA ) Gastrointestinal/Abdominal: Soft, No Tenderness Back: Normal Inspection Extremity: Pedal Edema (3+PITTING EDEMA B/L) Neurological/Psych: Oriented x3, Normal Speech, Normal Cognition ED Course And Treatment - Laboratory Results Result Diagrams: 04/30/17 08:25 08 08:25 ECG: Interpreted By Me ECG Rhythm: Sinus Rhythm, PVC ECG Interpretation: Normal Rate From EC O2 Sat by Pulse Oximetry: 95 Pulse Ox Interpretation: Normal - Radiology CXR: Interpreted by Me CXR Interpretation: Yes: Other (CHF WORSE COMPARED TO PRIOR) Progress - Re-Evaluation Re-evaluation Note: 04/30/17 09:23 D/W DR RONDON WILL ADMIT - Data Reviewed Data Reviewed: Lab, Diagnostic imaging, EKG, Old records - Continuity of Care Discussed patient case with:: Patient, PMD Disposition Counseled Patient/Family Regarding: Studies Performed, Diagnosis - Disposition Disposition: HOSPITALIZED Disposition Time: 09:23 Condition: STABLE Forms: [employer] (Salvadorean) - POA Present On Arrival: None - Clinical Impression Clinical Impression: CHF exacerbation, Pedal edema, Dyspnea - Scribe Statement The provider has reviewed the documentation as recorded by the Scribe [facility] [place] Attestation: All medical record entries made by the Scribe were at my direction and personally dictated by me. I have reviewed the chart and agree that the record accurately reflects my personal performance of the history, physical exam, medical decision making, and the department course for this patient. I have also personally directed, reviewed, and agree with the discharge instructions and disposition. Decision To Admit - Pt Status Changed To: Hospital Disposition Of: Observation - . Bed Request Type: Telemetry Admitting Physician: Chong Rondon Patient Diagnosis: CHF exacerbation, Pedal edema, Dyspnea
[2017-04-30 08:30] LABS: BASO # 0.1 K/uL (0.0-0.2); BASO % 0.8 % (0.0-2.0); EOS # 0.1 K/uL (0.0-0.7); HEMATOCRIT 39.9 % (35.0-51.0); LYMPH # 1.7 K/uL (1.0-4.3); MEAN CELL VOLUME 76.3 fL (80.0-94.0); MEAN CORPUSCULAR HEMOGLOBIN 24.5 pg (27.0-31.0); MEAN PLATELET VOLUME 8.7 fL (7.2-11.7); MONO # 0.4 K/uL (0.0-0.8); MONO % 4.7 % (0.0-10.0); RED CELL DISTRIBUTION WIDTH 15.6 % (11.5-14.5); WHITE BLOOD COUNT 8.8 K/uL (4.8-10.8)
[2017-04-30 08:41] LABS: CHLORIDE 103 mmol/L (98-107); SODIUM 141 mmol/L (132-148)
[2017-04-30 08:42] LABS: POTASSIUM 3.6 mmol/L (3.6-5.2)
[2017-04-30 08:44] LABS: ALB/GLOB RATIO 1.2 (1.0-2.1); ALKALINE PHOSPHATASE 72 U/L (38-126); ALT/SGPT 35 U/L (21-72); AST/SGOT 26 U/L (17-59); BLOOD UREA NITROGEN 9 mg/dL (9-20); CARBON DIOXIDE 22 mmol/L (22-30); GFR AFRICAN-AMERICAN > 60; GLUCOSE,RANDOM 88 mg/dL (75-110); TOTAL PROTEIN 7.5 g/dL (6.3-8.3)
[2017-04-30 08:45] LABS: CALCIUM 9.1 mg/dl (8.6-10.4)
[2017-04-30 08:55] LABS: INR 1.1
--- NOTE | 2017-04-30 10:38 | CP.PCM.PN ---
Subjective - Date & Time of Evaluation Date of Evaluation: 04/30/17 Time of Evaluation: 10:29 - Subjective Subjective: PGY-[address] Adame 56 year old male with past medical history of COPD, CHF (echo on 03/2017 EF 25%), seizure, seizure, CVA with residual left side weakness presents to the ED with SOB. Patient reports his shortness of breath started this morning shortly after he woke up. Patient also complains of bilaterally lower extremity swelling for 3 days. Patient takes Lasix 20mg twice daily and claims to be compliant with other medications. Patient states his presenting symptom is simliar to his previous CHF exacerbations. He sleeps with 2 pillows at night, denies having waking up in middle of the night gasping for air. Patient is wheelchair bound due to his CVA. Patient denies headache, fever, chills, chest pain, abdominal pain, nausea, or vomiting. Commercial Housekeeper: Dr. Verduzco PMH: COPD, CHF (echo on 03/2017 EF 25%), seizure, seizure, CVA PSH: denies Med: see MAR ALL: NKA SH: former smoker, denies drinking or drugs use FH: unknown Objective - Vital Signs/Intake and Output Vital Signs (last 24 hours): Temp Pulse Resp BP Pulse Ox 97.9 F 64 20 150/97 H 100 04/30/17 07:55 04/30/17 10:04 04/30/17 10:04 04/30/17 10:04 04/30/17 10:04 - Medications Medications: Current Medications Aspirin (Ecotrin) 81 mg PO DAILY [facility] Carvedilol (Coreg) 6.25 mg PO BID [facility] Enalapril Maleate (Vasotec) 5 mg PO DAILY [facility] Enoxaparin Sodium (Lovenox) 40 mg SC DAILY [facility] Ferrous Sulfate (Feosol) 325 mg PO DAILY [facility] Furosemide (Lasix) 40 mg IVP BID [facility] Hydrochlorothiazide (Hydrodiuril) 25 mg PO DAILY [facility] Levetiracetam (Keppra) 750 mg PO DAILY [facility] Nitroglycerin (Nitrostat Sl Tab) 0.4 mg SL Q5M [facility] Pantoprazole Sodium (Protonix Ec Tab) 40 mg PO DAILY [facility] Potassium Chloride (K-Dur 20 Meq Er Tab) 20 meq PO DAILY [facility] Spironolactone (Aldactone) 25 mg PO DAILY [facility] - Labs Labs: PT 12.1 SECONDS (9.7-12.2) 04/30/17 08:25 INR 1.1 04/30/17 08:25 APTT 32 SECONDS (21-34) 04/30/17 08:25 - Constitutional Appears: Non-toxic, No Acute Distress - Head Exam Head Exam: ATRAUMATIC, NORMAL INSPECTION - Eye Exam Eye Exam: EOMI, Normal appearance - ENT Exam ENT Exam: Mucous Membranes Moist - Neck Exam Neck Exam: Normal Inspection - Respiratory Exam Respiratory Exam: Clear to Ausculation Bilateral, NORMAL BREATHING PATTERN. absent: Respiratory Distress - Cardiovascular Exam Cardiovascular Exam: REGULAR RHYTHM, +S1, +S2. absent: Murmur - GI/Abdominal Exam GI & Abdominal Exam: Soft, Normal Bowel Sounds. absent: Tenderness - Extremities Exam Extremities Exam: Pedal Edema. absent: Tenderness Additional comments: 2+ bilateral lower extremity swelling - Neurological Exam Neurological Exam: Alert, Awake, Oriented x3 - Psychiatric Exam Psychiatric exam: Normal Affect, Normal Mood - Skin Skin Exam: Dry, Warm Assessment and Plan - Assessment and Plan (Free Text) Assessment: CHF exacerbation - First troponin negative, pending x2 - BNP: 5000 - Lasix 80mg given in the ED - Lasix 40mg BID IVP - Daily weight, strict I&O - 2g Na diet - Cardiology consult, Dr. Rincon help appreciated HTN -Resume home Coreg, enalapril, HCTZ Seizure -Cont Keppra -Seizure precautions Prophylactic measure -Protonix -Lovenox -Ativan PRN Case discussed with Dr. Adame
[2017-04-30] MEDS: Potassium Chloride 20 mEq ER Tab PO SCH ×2 (11:03→13:03)
[2017-04-30] MEDS: Pantoprazole 40 mg EC Tab PO SCH ×2 (11:04→13:03)
[2017-04-30] MEDS: Enoxaparin 40 mg Syringe SC SCH (11:04)
--- NOTE | 2017-04-30 13:18 | RAD ---
PROCEDURE: CHEST RADIOGRAPH, 1 VIEW HISTORY: Shortness of breath COMPARISON: 04/06/2017 FINDINGS: LUNGS: Elevated left hemidiaphragm with lucency noted under the left hemidiaphragm which may represent colonic interposition versus gastric bubble versus additional etiology. Clinical correlation. Diffuse increased interstitial lung markings bilaterally suggestive for edema and or infiltrate. Prominent bilateral hilar prominence with confluent consolidative markings at the right lung base and left suprahilar region. PLEURA: As above. CARDIOVASCULAR: Cardiomegaly. OSSEOUS STRUCTURES: Degenerative changes in the spine and shoulders. VISUALIZED UPPER ABDOMEN: Normal. OTHER FINDINGS: None. IMPRESSION: Elevated left hemidiaphragm with lucency noted under the left hemidiaphragm which may represent colonic interposition versus gastric bubble versus additional etiology. Clinical correlation. Diffuse increased interstitial lung markings bilaterally suggestive for edema and or infiltrate. Prominent bilateral hilar prominence with confluent consolidative markings at the right lung base and left suprahilar region.
--- NOTE | 2017-04-30 15:07 | CP.PCM.CON ---
History of Present Illness - History of Present Illness History of Present Illness: 56 Y/O MALE WITH CARDIOMYOPATHY WHO PRESENTS WITH PROGRESSIVE DYSPNEA, KATELYN AND ORTHOPNEA. NO CP. NO PALP. NO LH. PT LIVES IN A SKILLED NURSING AND HAS TROUBLE GETTING TO BR QUICKLY GIVEN URGENT STREAM ON LASIX. A RESULT PT IS SOMEWHAT NONCOMPLIANT WITH DIURETIC THERAPY. AT THIS POINT HE DENIES F/C/C/N/V. HE DENIES DIETARY CHANGES. HE DOES TAKE HIS OTHER MEDICATIONS. Review of Systems - Constitutional Constitutional: absent: As Per HPI, Anorexia, Chills, Daytime Sleepiness, Excessive Sweating, Fatigue, Fever, Frequent Falls, Headache, Increased Appetite , Lethargy, Malaise, Night Sweats, Snoring, Sleep Apnea, Weight Gain, Weight Loss, Weakness, Other - EENT Eyes: absent: As Per HPI, Blind Spots, Blurred Vision, Change in Vision, Decreased Night Vision, Diplopia, Discharge, Dry Eye, Exophthalmos, Floaters, Irritation, Itchy Eyes, Loss of Peripheral Vision, Pain, Photophobia, Requires Corrective Lenses, Sees Flashes, Spots in Vision, Tunnel Vision, Other Visual Disturbances, Loss of Vision, Other Ears: absent: As Per HPI, Decreased Hearing, Ear Discharge, Ear Pain, Tinnitus, Abnormal Hearing, Disequilibrium, Dizziness, Other Nose/Mouth/Throat: absent: As Per HPI, Epistaxis, Nasal Congestion, Nasal Discharge, Nasal Obstruction, Nasal Trauma, Nose Pain, Post Nasal Drip, Sinus Pain, Sinus Pressure, Bleeding Gums, Change in Voice, Dental Pain, Dry Mouth, Dysphagia, Halitosis, Hoarsness, Lip Swelling, Mouth Lesions, Mouth Pain, Odynophagia, Sore Throat, Throat Swelling, Tongue Swelling, Facial Pain, Neck Pain, Neck Mass, Other - Cardiovascular Cardiovascular: As Per HPI, Dyspnea, Edema, Leg Edema, Orthopnea. absent: Acrocyanosis, Chest Pain, Chest Pain at Rest, Chest Pain with Activity, Claudication, Diaphoresis, Dyspnea on Exertion, Irregular Heart Rhythm, Pain Radiating to Arm/Neck/Jaw, Leg Ulcers, Lightheadedness, Palpitations, Paroxysmal Nocturnal Dyspnea, Pedal Edema, Radiating Pain, Rapid Heart Rate, Slow Heart Rate, Syncope, Other - Respiratory Respiratory: Dyspnea on Exertion. absent: As Per HPI, Cough, Dyspnea, Hemoptysis, Wheezing, Snoring, Stridor, Pain on Inspiration, Chest Congestion, Excessive Mucous Production, Change in Mucous Color, Pain with Coughing, Other - Gastrointestinal Gastrointestinal: As Per HPI. absent: Abdominal Pain, Belching, Bloating, Change in Bowel Habits, Change in Stool Character, Coffee Ground Emesis, Constipation, Cramping, Diarrhea, Dyspepsia, Dysphagia, Early Satiety, Excessive Flatus, Fecal Incontinence, Heartburn, Hematemesis, Hematochezia, Loose Stools, Melena, Nausea, Odynophagia, Temesmus, Vomiting, Other - Genitourinary Genitourinary: absent: As Per HPI, Change in Urinary Stream, Difficulty Urinating, Dysuria, Flank Pain, Hematuria, Pyuria, Nocturia, Urinary Incontinence, Urinary Frequency, Urinary Hesitance, Urinary Urgency, Voiding Freq/Small Amts, Freq UTI, Hx Renal/Bladder Calculi, Hx /Renal Surgery, Bladder Distension, Other - Musculoskeletal Musculoskeletal: absent: As Per HPI, Abnormal Gait, Arthralgias, Atrophy, Back Pain, Deformity, Joint Swelling, Limited Range of Motion, Loss of Height, Muscle Cramps, Muscle Weakness, Myalgias, Neck Pain, Numbness, Radiating Pain into Limb, Stiffness, Tingling, Other - Integumentary Integumentary: absent: As Per HPI, Acne, Alopecia, Bleeding Lesions, Change in Hair, Change in Nails, Change in Pigmentation, Changing Lesions, Dry Skin, Erythema, Furuncle, Hirsutism, Lesions, New Lesions, Non-Healing Lesions, Photosensitivity, Pruritus, Rash, Skin Pain, Skin Ulcer, Sores, Striae, Swelling , Unusual Bruising, Wounds, Jaundice, Other - Neurological Neurological: absent: As Per HPI, Abnormal Gait, Abnormal Hearing, Abnormal Movements, Abnormal Speech, Behavioral Changes, Burning Sensations, Confusion, Convulsions, Disequilibrium, Dizziness, Numbness, Focal Weakness, Frequent Falls , Headaches, Lack of Coordination, Loss of Vision, Memory Loss, Paresthesias, Radicular Pain, Restless Legs, Sensory Deficit, Syncope, Tingling, Tremor, Vertigo, Weakness, Other Visual Disturbances, Other - Psychiatric Psychiatric: absent: As Per HPI, Abnormal Sleep Pattern, Anhedonia, Anxiety, Auditory Hallucinations, Behavioral Changes, Change in Appetite, Change in Libido, Confusion, Depression, Difficulty Concentrating, Hallucinations, Homicidal Ideation, Hopelessness, Irritability, Memory Loss, Mood Swings, Panic Attacks, Paranoia, Suicidal Ideation, Visual Hallucinations, Tactile Hallucinations, Other - Endocrine Endocrine: absent: As Per HPI, Change in Body Appearance, Change in Libido, Cold Intolorance, Deepening of Voice, Excessive Sweating, Fatigue, Flushing, Heat Intolorance, Increase in Ring/Shoe/Hat Size, Palpitations, Polydipsia, Polyphagia, Polyuria, Other Past Patient History - Infectious Disease Hx of Infectious Diseases: None - Past Medical History & Family History Past Medical History?: Yes - Past Social History Smoking Status: Light Smoker < 10 Cigarettes Daily Chewing Tobacco Use: No Cigar Use: No Alcohol: None Drugs: Denies Home Situation {Lives}: Other Domestic Violence: Negative - CARDIAC Hx Atrial Fibrillation: No Hx Cardia Arrhythmia: No Hx Congestive Heart Failure: Yes Hx Hypercholesterolemia: Yes Hx Hypertension: Yes Hx Mitral Valve Prolapse: No Hx Pacemaker: No Hx Peripheral Edema: Yes - PULMONARY Hx Asthma: No Hx Bronchitis: No Hx Chronic Obstructive Pulmonary Disease (COPD): Yes Hx Emphysema: No Hx Pneumonia: No Hx Pulmonary Embolism: Yes Hx Sleep Apnea: No - NEUROLOGICAL Hx Seizures: Yes (last episode 02/2017) - HEENT Hx HEENT Problems: No - RENAL Hx Chronic Kidney Disease: No - ENDOCRINE/METABOLIC Hx Endocrine Disorders: No - HEMATOLOGICAL/ONCOLOGICAL Hx Blood Disorders: No - INTEGUMENTARY Hx Dermatological Problems: No - MUSCULOSKELETAL/RHEUMATOLOGICAL Hx Musculoskeletal Disorders: Yes Hx Falls: Yes Other/Comment: USES WHEELCHAIR AND WALKER - GASTROINTESTINAL Hx Gastritis: Yes - GENITOURINARY/GYNECOLOGICAL Hx Genitourinary Disorders: Yes Hx Incontinence: Yes Hx Urinary Tract Infection: Yes - PSYCHIATRIC Hx Substance Use: No (as per pt) - SURGICAL HISTORY Hx Surgeries: Yes Other/Comment: ivc filter - ANESTHESIA Hx Anesthesia: Yes Hx Anesthesia Reactions: No Meds Allergies/Adverse Reactions: Allergies Allergy/AdvReac Type Severity Reaction Status Date / Time No Known Allergies Allergy Verified 04/30/17 07:55 - Medications Medications: Current Medications Aspirin (Ecotrin) 81 mg PO DAILY [facility] Last Admin: 04/30/17 11:03 Dose: 81 mg Carvedilol (Coreg) 6.25 mg PO BID [facility] Last Admin: 04/30/17 11:03 Dose: 6.25 mg Enalapril Maleate (Vasotec) 5 mg PO DAILY [facility] Last Admin: 04/30/17 11:04 Dose: 5 mg Enoxaparin Sodium (Lovenox) 40 mg SC DAILY [facility] Last Admin: 04/30/17 11:04 Dose: 40 mg Ferrous Sulfate (Feosol) 325 mg PO DAILY [facility] Last Admin: 04/30/17 11:03 Dose: 325 mg Furosemide (Lasix) 40 mg IVP BID [facility] Hydrochlorothiazide (Hydrodiuril) 25 mg PO DAILY [facility] Last Admin: 04/30/17 11:05 Dose: 25 mg Levetiracetam (Keppra) 500 mg PO BID [facility] Lorazepam (Ativan) 1 mg IVP Q6H PRN PRN Reason: Seizure activity Pantoprazole Sodium (Protonix Ec Tab) 40 mg PO DAILY [facility] Last Admin: 04/30/17 13:03 Dose: Not Given Potassium Chloride (K-Dur 20 Meq Er Tab) 20 meq PO DAILY [facility] Last Admin: 04/30/17 13:03 Dose: Not Given Spironolactone (Aldactone) 25 mg PO DAILY [facility] Last Admin: 04/30/17 13:03 Dose: Not Given Physical Exam - Constitutional Appears: Non-toxic - Head Exam Head Exam: ATRAUMATIC, NORMAL INSPECTION, NORMOCEPHALIC - Eye Exam Eye Exam: EOMI, Normal appearance, PERRL Pupil Exam: NORMAL ACCOMODATION, PERRL - ENT Exam ENT Exam: Mucous Membranes Moist, Normal Exam - Neck Exam Additional comments: MILD HJR AND JVD - Respiratory Exam Respiratory Exam: Decreased Breath Sounds, Rales. absent: Accessory Muscle Use , Chest Wall Tenderness, Clear to Auscultation Bilateral, Prolonged Expiratory Phase, Rhonchi, Wheezes, Respiratory Distress, Stridor, NORMAL BREATHING PATTERN Additional comments: RALES AND DECREASED B/S B.L 1/2 WAY UP CHEST - Cardiovascular Exam Cardiovascular Exam: REGULAR RHYTHM, +S1, +S2, Systolic Murmur Additional comments: S3 NOTED LLSB SM MURMUR - GI/Abdominal Exam GI & Abdominal Exam: Normal Bowel Sounds, Soft. absent: Tenderness - Rectal Exam Rectal Exam: Deferred - Extremities Exam Extremities exam: Negative for: calf tenderness, full ROM, joint swelling, normal capillary refill, normal inspection, pedal edema, tenderness, pedal pulses present Additional comments: 3 + EDEMA - Back Exam Back exam: NORMAL INSPECTION - Neurological Exam Neurological exam: Alert, CN II-XII Intact, Normal Gait, Oriented x3, Reflexes Normal - Psychiatric Exam Psychiatric exam: Normal Affect, Normal Mood - Skin Skin Exam: Dry, Intact, Normal Color, Warm Results - Vital Signs Recent Vital Signs: Last Vital Signs Temp 98.5 F 04/30/17 14:34 Pulse 74 04/30/17 14:34 Resp 20 04/30/17 14:34 BP 119/63 04/30/17 14:34 Pulse Ox 95 04/30/17 14:34 - Labs Result Diagrams: 05/02/17 06:04 05/02/17 06:04 - EKG Data EKG Interpreted by: Myself EKG shows normal: Sinus rhythm Rate: Normal - EKG Data EKG comments: LBBB WITH PVC Assessment & Plan (1) Dyslipidemia Status: Acute (2) Noncompliance w/medication treatment due to intermit use of medication Status: Acute (3) LBBB (left bundle branch block) Status: Acute (4) CHF exacerbation Status: Acute (5) Dyspnea Status: Acute (6) Pedal edema Status: Acute (7) HTN (hypertension) Status: Acute - Assessment and Plan (Free Text) Plan: PT NOW LAYING IN BED AND COMFORTABLE AFTER TREATMENT IN ER. HE IS ON DIURETICS, ACEI, ASA, COREG, SPIRONO, HCTZ . EKG IS UNCHANGED FROM PRIOR ECHO EF OF 25 WILL CONTINUE MEDICAL THERAPY ORDERED AND REASSESS VOLUME STATUS MONITOR CR AND LYTES HE IS ON MULTIPLE DIURETICS. KEEP ON TELE. 90 MIN TOTAL CARE TIME.
[2017-05-01 08:07] LABS: BASO # 0.1 K/uL (0.0-0.2); BASO % 0.9 % (0.0-2.0); EOS # 0.2 K/uL (0.0-0.7); EOS % 1.7 % (0.0-4.0); HEMATOCRIT 36.1 % (35.0-51.0); LYMPH # 2.9 K/uL (1.0-4.3); MEAN CELL VOLUME 76.2 fL (80.0-94.0); MEAN CORPUSCULAR HEMOGLOBIN 24.6 pg (27.0-31.0); MEAN CORPUSCULAR HGB CONC 32.2 g/dL (33.0-37.0); MEAN PLATELET VOLUME 8.7 fL (7.2-11.7); MONO # 0.5 K/uL (0.0-0.8); MONO % 5.5 % (0.0-10.0); RED CELL DISTRIBUTION WIDTH 15.4 % (11.5-14.5); WHITE BLOOD COUNT 8.7 K/uL (4.8-10.8)
[2017-05-01 08:29] LABS: ALB/GLOB RATIO 1.1 (1.0-2.1); ALKALINE PHOSPHATASE 66 U/L (38-126); ALT/SGPT 31 U/L (21-72); AST/SGOT 22 U/L (17-59); BLOOD UREA NITROGEN 14 mg/dL (9-20); CALCIUM 9.1 mg/dl (8.6-10.4); CARBON DIOXIDE 28 mmol/L (22-30); CHLORIDE 100 mmol/L (98-107); GFR AFRICAN-AMERICAN > 60; GLUCOSE,RANDOM 92 mg/dL (75-110); MAGNESIUM 1.8 mg/dL (1.6-2.3); PHOSPHOROUS 3.8 mg/dL (2.5-4.5); POTASSIUM 3.5 mmol/L (3.6-5.2); SODIUM 140 mmol/L (132-148); TOTAL PROTEIN 6.9 g/dL (6.3-8.3)
[2017-05-01] MEDS ORDERED: Potassium Chloride 20 mEq ER Tab PO ONE (10:00)
[2017-05-01] MEDS: Potassium Chloride 20 mEq ER Tab PO SCH (10:51)
[2017-05-01] MEDS: Pantoprazole 40 mg EC Tab PO SCH (10:51)
[2017-05-01] MEDS: Enoxaparin 40 mg Syringe SC SCH (10:52)
--- NOTE | 2017-05-01 14:28 | CP.PCM.PN ---
Subjective - Date & Time of Evaluation Date of Evaluation: 05/01/17 Time of Evaluation: 07:30 - Subjective Subjective: PGY [address] Adame: Patient seen and examined at bedside. Patient denied chest pain and stated that his breathing had greatly improved since admission. He states that he is homeless and must stay in a half-way. He does not take his lasix as prescribed because he can't get to the bathroom as frequently due to too many people using the bathroom at the half-way. He reports chronic swelling in his legs but states the swelling has been worse recently. Patient otherwise has no new complaints. Objective - Vital Signs/Intake and Output Vital Signs (last 24 hours): Temp Pulse Resp BP Pulse Ox 98.2 F 71 20 151/81 H 96 05/01/17 07:49 05/01/17 07:49 05/01/17 07:49 05/01/17 10:51 05/01/17 07:49 Intake and Output: 05/01/17 05/01/17 06:59 18:59 Intake Total 400 Output Total 1000 Balance -600 - Medications Medications: Current Medications Aspirin (Ecotrin) 81 mg PO DAILY [facility] Last Admin: 05/01/17 10:51 Dose: 81 mg Carvedilol (Coreg) 6.25 mg PO BID [facility] Last Admin: 05/01/17 10:51 Dose: 6.25 mg Enalapril Maleate (Vasotec) 5 mg PO DAILY [facility] Last Admin: 05/01/17 10:51 Dose: 5 mg Enoxaparin Sodium (Lovenox) 40 mg SC DAILY [facility] Last Admin: 05/01/17 10:52 Dose: 40 mg Ferrous Sulfate (Feosol) 325 mg PO DAILY [facility] Last Admin: 05/01/17 10:51 Dose: 325 mg Furosemide (Lasix) 40 mg IVP BID [facility] Last Admin: 05/01/17 10:50 Dose: 40 mg Hydrochlorothiazide (Hydrodiuril) 25 mg PO DAILY [facility] Last Admin: 05/01/17 10:51 Dose: 25 mg Levetiracetam (Keppra) 500 mg PO BID [facility] Last Admin: 05/01/17 10:51 Dose: 500 mg Lorazepam (Ativan) 1 mg IVP Q6H PRN PRN Reason: Seizure activity Pantoprazole Sodium (Protonix Ec Tab) 40 mg PO DAILY [facility] Last Admin: 05/01/17 10:51 Dose: 40 mg Potassium Chloride (K-Dur 20 Meq Er Tab) 20 meq PO DAILY [facility] Last Admin: 05/01/17 10:51 Dose: 20 meq Spironolactone (Aldactone) 25 mg PO DAILY [facility] Last Admin: 05/01/17 10:51 Dose: 25 mg - Labs Labs: 05/01/17 07:58 05/01/17 07:58 PT 12.1 SECONDS (9.7-12.2) 04/30/17 08:25 INR 1.1 04/30/17 08:25 APTT 32 SECONDS (21-34) 04/30/17 08:25 - Constitutional Appears: Non-toxic, No Acute Distress, Chronically Ill - Head Exam Head Exam: ATRAUMATIC, NORMAL INSPECTION - Eye Exam Eye Exam: EOMI, PERRL - ENT Exam ENT Exam: Mucous Membranes Moist - Respiratory Exam Respiratory Exam: Rales, NORMAL BREATHING PATTERN. absent: Accessory Muscle Use , Decreased Breath Sounds, Respiratory Distress - Cardiovascular Exam Cardiovascular Exam: Gallop, REGULAR RHYTHM, +S1, +S2 - GI/Abdominal Exam GI & Abdominal Exam: Soft, Normal Bowel Sounds. absent: Distended, Firm, Guarding, Tenderness - Extremities Exam Extremities Exam: Pedal Edema Additional comments: 3+ edema bilaterally LE. Left hand contracted from previous CVA - Back Exam Back Exam: NORMAL INSPECTION. absent: CVA tenderness (L), CVA tenderness (R), paraspinal tenderness - Neurological Exam Neurological Exam: Alert, Awake, CN II-XII Intact, Oriented x3 - Psychiatric Exam Psychiatric exam: Normal Affect, Normal Mood - Skin Skin Exam: Dry, Intact, Normal Color, Warm Assessment and Plan - Assessment and Plan (Free Text) Assessment: CHF chronic systolic dysfunction, with acute exacerbation - Troponin negative x 2, will follow up with a 3rd - BNP: 5000 - Daily weight, strict I&O - 2g Na diet - Cardiology consult, Dr. Sergey jay -ASA 81 mg PO daily - Coreg 6.25 mg PO BID - Enalapril 5mg PO daily - Lasix 40mg IVP BID - HCTZ 25 mg PO daily - f/u echo, last echo in march EF 25% if still lower than 35% will need to consider life vest ACID placement HTN -Resume home Coreg, enalapril, HCTZ Seizure -Cont Keppra -Seizure precautions Hypokalemia K 3.4 Replaced monitor am labs HX CVA Left hand contracted from previous CVA pt/ot Prophylactic measure -Protonix -Lovenox 40mg SC daily -Ativan PRN - PT/OT - Case management - patient is homeless All management per Dr. Adame
--- NOTE | 2017-05-01 19:22 | CP.PCM.PN ---
Subjective - Date & Time of Evaluation Date of Evaluation: 05/01/17 Time of Evaluation: 19:21 - Subjective Subjective: PT FEELS BETTER. LESS ORTHOPNEA AND HUTCHISON. CONTINUE CURRENT MEDS AND MONITOR LABS 60 MIN TOTAL CARE. CHART AND LABS REVIEWED Objective - Vital Signs/Intake and Output Vital Signs (last 24 hours): Temp Pulse Resp BP Pulse Ox 98 F 72 20 142/76 98 05/01/17 15:40 05/01/17 16:47 05/01/17 15:40 05/01/17 17:49 05/01/17 15:40 Intake and Output: 05/01/17 05/02/17 18:59 06:59 Intake Total 400 Output Total 350 Balance 50 - Medications Medications: Current Medications Aspirin (Ecotrin) 81 mg PO DAILY [facility] Last Admin: 05/01/17 10:51 Dose: 81 mg Carvedilol (Coreg) 6.25 mg PO BID [facility] Last Admin: 05/01/17 17:49 Dose: 6.25 mg Enalapril Maleate (Vasotec) 5 mg PO DAILY [facility] Last Admin: 05/01/17 10:51 Dose: 5 mg Enoxaparin Sodium (Lovenox) 40 mg SC DAILY [facility] Last Admin: 05/01/17 10:52 Dose: 40 mg Ferrous Sulfate (Feosol) 325 mg PO DAILY [facility] Last Admin: 05/01/17 10:51 Dose: 325 mg Furosemide (Lasix) 40 mg IVP BID [facility] Last Admin: 05/01/17 17:49 Dose: 40 mg Hydrochlorothiazide (Hydrodiuril) 25 mg PO DAILY [facility] Last Admin: 05/01/17 10:51 Dose: 25 mg Levetiracetam (Keppra) 500 mg PO BID [facility] Last Admin: 05/01/17 17:49 Dose: 500 mg Lorazepam (Ativan) 1 mg IVP Q6H PRN PRN Reason: Seizure activity Pantoprazole Sodium (Protonix Ec Tab) 40 mg PO DAILY [facility] Last Admin: 05/01/17 10:51 Dose: 40 mg Potassium Chloride (K-Dur 20 Meq Er Tab) 20 meq PO DAILY [facility] Last Admin: 05/01/17 10:51 Dose: 20 meq Spironolactone (Aldactone) 25 mg PO DAILY [facility] Last Admin: 05/01/17 10:51 Dose: 25 mg - Labs Labs: 05/01/17 07:58 05/01/17 07:58 PT 12.1 SECONDS (9.7-12.2) 04/30/17 08:25 INR 1.1 04/30/17 08:25 APTT 32 SECONDS (21-34) 04/30/17 08:25 Assessment and Plan - Assessment and Plan (Free Text) Plan: PT LESS DYSPNIC HE IS DIURESING ECHO EF OF 25 CONTINUE CARE, REPLEAT LYTES MONITOR CR AND LYTES HE IS ON MULTIPLE DIURETICS. KEEP ON TELE. 60 MIN TOTAL CARE TIME.
[2017-05-02 06:19] LABS: BASO % 0.4 % (0.0-2.0); EOS # 0.2 K/uL (0.0-0.7); EOS % 2.5 % (0.0-4.0); LYMPH # 2.3 K/uL (1.0-4.3); LYMPH % 27.6 % (20.0-40.0); MEAN CELL VOLUME 75.5 fL (80.0-94.0); MEAN CORPUSCULAR HEMOGLOBIN 24.6 pg (27.0-31.0); MEAN CORPUSCULAR HGB CONC 32.6 g/dL (33.0-37.0); MEAN PLATELET VOLUME 8.9 fL (7.2-11.7); MONO # 0.5 K/uL (0.0-0.8); MONO % 6.6 % (0.0-10.0); NRBC % 0.1 % (0.0-2.0); RED CELL DISTRIBUTION WIDTH 15.2 % (11.5-14.5); WHITE BLOOD COUNT 8.4 K/uL (4.8-10.8)
[2017-05-02 06:36] LABS: ALB/GLOB RATIO 1.2 (1.0-2.1); ALKALINE PHOSPHATASE 53 U/L (38-126); ALT/SGPT 29 U/L (21-72); AST/SGOT 20 U/L (17-59); BILIRUBIN,TOTAL 0.6 mg/dL (0.2-1.3); BLOOD UREA NITROGEN 12 mg/dL (9-20); CALCIUM 8.8 mg/dl (8.6-10.4); CARBON DIOXIDE 27 mmol/L (22-30); CHLORIDE 100 mmol/L (98-107); GFR AFRICAN-AMERICAN > 60; GLUCOSE,RANDOM 95 mg/dL (75-110); MAGNESIUM 1.7 mg/dL (1.6-2.3); PHOSPHOROUS 3.9 mg/dL (2.5-4.5); POTASSIUM 3.6 mmol/L (3.6-5.2); SODIUM 136 mmol/L (132-148); TOTAL PROTEIN 6.1 g/dL (6.3-8.3)
[2017-05-02] MEDS: Potassium Chloride 20 mEq ER Tab PO SCH (10:59)
[2017-05-02] MEDS: Pantoprazole 40 mg EC Tab PO SCH (10:59)
[2017-05-02] MEDS: Enoxaparin 40 mg Syringe SC SCH (11:00)
--- NOTE | 2017-05-02 11:21 | CP.PCM.PN ---
Subjective - Date & Time of Evaluation Date of Evaluation: 05/02/17 Time of Evaluation: 07:30 - Subjective Subjective: PGY-[address] Adame Patient seen and examined at bedside. No acute events overnight. Patient is actively participating in physical therapy. He reports no shortness of breath and his bilateral lower extremity edema are improving. Patient denies headache, fever, chills, chest pain, nausea, vomiting or diarrhea. Objective - Vital Signs/Intake and Output Vital Signs (last 24 hours): Temp Pulse Resp BP Pulse Ox 99.0 F 70 20 147/73 96 05/02/17 08:07 05/02/17 08:07 05/02/17 08:07 05/02/17 11:00 05/02/17 08:07 Intake and Output: 05/02/17 05/02/17 06:59 18:59 Output Total 700 Balance -700 - Medications Medications: Current Medications Aspirin (Ecotrin) 81 mg PO DAILY [facility] Last Admin: 05/02/17 10:59 Dose: 81 mg Carvedilol (Coreg) 6.25 mg PO BID [facility] Last Admin: 05/02/17 10:59 Dose: 6.25 mg Enalapril Maleate (Vasotec) 5 mg PO DAILY [facility] Last Admin: 05/02/17 10:59 Dose: 5 mg Enoxaparin Sodium (Lovenox) 40 mg SC DAILY [facility] Last Admin: 05/02/17 11:00 Dose: 40 mg Ferrous Sulfate (Feosol) 325 mg PO DAILY [facility] Last Admin: 05/02/17 11:00 Dose: 325 mg Furosemide (Lasix) 40 mg IVP BID [facility] Last Admin: 05/02/17 11:00 Dose: 40 mg Hydrochlorothiazide (Hydrodiuril) 25 mg PO DAILY [facility] Last Admin: 05/02/17 10:59 Dose: 25 mg Levetiracetam (Keppra) 500 mg PO BID [facility] Last Admin: 05/02/17 10:59 Dose: 500 mg Lorazepam (Ativan) 1 mg IVP Q6H PRN PRN Reason: Seizure activity Pantoprazole Sodium (Protonix Ec Tab) 40 mg PO DAILY [facility] Last Admin: 05/02/17 10:59 Dose: 40 mg Potassium Chloride (K-Dur 20 Meq Er Tab) 20 meq PO DAILY [facility] Last Admin: 05/02/17 10:59 Dose: 20 meq Spironolactone (Aldactone) 25 mg PO DAILY [facility] Last Admin: 05/02/17 10:59 Dose: 25 mg - Labs Labs: 05/02/17 06:04 05/02/17 06:04 PT 12.1 SECONDS (9.7-12.2) 04/30/17 08:25 INR 1.1 04/30/17 08:25 APTT 32 SECONDS (21-34) 04/30/17 08:25 - Constitutional Appears: Non-toxic, No Acute Distress - Head Exam Head Exam: ATRAUMATIC, NORMAL INSPECTION - Eye Exam Eye Exam: Normal appearance, PERRL - ENT Exam ENT Exam: Mucous Membranes Moist - Neck Exam Neck Exam: Normal Inspection - Respiratory Exam Respiratory Exam: Clear to Ausculation Bilateral, NORMAL BREATHING PATTERN. absent: Respiratory Distress - Cardiovascular Exam Cardiovascular Exam: REGULAR RHYTHM, +S1, +S2 - GI/Abdominal Exam GI & Abdominal Exam: Soft, Normal Bowel Sounds. absent: Tenderness - Extremities Exam Extremities Exam: Pedal Edema (1+ bilateral pedal edema) - Back Exam Back Exam: NORMAL INSPECTION - Neurological Exam Neurological Exam: Alert, Awake, Oriented x3 - Psychiatric Exam Psychiatric exam: Normal Mood - Skin Skin Exam: Dry, Intact, Normal Color, Warm Assessment and Plan - Assessment and Plan (Free Text) Assessment: CHF chronic systolic dysfunction, with acute exacerbation - Follow cardiology recommendations - Troponin negative x 3 - BNP today: 1710 - Daily weight, strict I&O - 2g Na diet - ASA 81 mg PO daily - Bumex 2mg IV Q12 - Coreg 12.5 mg PO Q12 - Enalapril 10mg PO daily - Spironolactone 25mg PO daily - Last echo in March EF 25% HTN -Resume home Coreg, enalapril Seizure - Cont Keppra - Seizure precautions Hypokalemia, resolved - K 3.6 - monitor am labs HX CVA - Left hand contracted from previous CVA - pt/ot Prophylactic measure - Protonix - Lovenox 40mg SC daily - Ativan PRN - PT/OT All management per Dr. Adame
--- NOTE | 2017-05-02 11:49 | CP.PCM.PN ---
Subjective - Date & Time of Evaluation Date of Evaluation: 05/02/17 Time of Evaluation: 11:49 - Subjective Subjective: PT SITTING UP, STILL DYSPNIC HOWEVER FEELS BETTER THAN YESTERDAY. CONTINUED BL LL DECREASED BS Objective - Vital Signs/Intake and Output Vital Signs (last 24 hours): Temp Pulse Resp BP Pulse Ox 99.0 F 70 20 147/73 96 05/02/17 08:07 05/02/17 08:07 05/02/17 08:07 05/02/17 11:00 05/02/17 08:07 Intake and Output: 05/02/17 05/02/17 06:59 18:59 Output Total 700 Balance -700 - Medications Medications: Current Medications Aspirin (Ecotrin) 81 mg PO DAILY [facility] Last Admin: 05/02/17 10:59 Dose: 81 mg Carvedilol (Coreg) 6.25 mg PO BID [facility] Last Admin: 05/02/17 10:59 Dose: 6.25 mg Enalapril Maleate (Vasotec) 5 mg PO DAILY [facility] Last Admin: 05/02/17 10:59 Dose: 5 mg Enoxaparin Sodium (Lovenox) 40 mg SC DAILY [facility] Last Admin: 05/02/17 11:00 Dose: 40 mg Ferrous Sulfate (Feosol) 325 mg PO DAILY [facility] Last Admin: 05/02/17 11:00 Dose: 325 mg Furosemide (Lasix) 40 mg IVP BID [facility] Last Admin: 05/02/17 11:00 Dose: 40 mg Hydrochlorothiazide (Hydrodiuril) 25 mg PO DAILY [facility] Last Admin: 05/02/17 10:59 Dose: 25 mg Levetiracetam (Keppra) 500 mg PO BID [facility] Last Admin: 05/02/17 10:59 Dose: 500 mg Lorazepam (Ativan) 1 mg IVP Q6H PRN PRN Reason: Seizure activity Pantoprazole Sodium (Protonix Ec Tab) 40 mg PO DAILY [facility] Last Admin: 05/02/17 10:59 Dose: 40 mg Potassium Chloride (K-Dur 20 Meq Er Tab) 20 meq PO DAILY [facility] Last Admin: 05/02/17 10:59 Dose: 20 meq Spironolactone (Aldactone) 25 mg PO DAILY [facility] Last Admin: 05/02/17 10:59 Dose: 25 mg - Labs Labs: 05/02/17 06:04 05/02/17 06:04 PT 12.1 SECONDS (9.7-12.2) 04/30/17 08:25 INR 1.1 04/30/17 08:25 APTT 32 SECONDS (21-34) 04/30/17 08:25 - Constitutional Appears: Well - Head Exam Head Exam: ATRAUMATIC, NORMAL INSPECTION, NORMOCEPHALIC - Eye Exam Eye Exam: EOMI, Normal appearance, PERRL Pupil Exam: NORMAL ACCOMODATION, PERRL - ENT Exam ENT Exam: Mucous Membranes Moist, Normal Exam - Neck Exam Neck Exam: Full ROM, Normal Inspection. absent: Lymphadenopathy - Respiratory Exam Respiratory Exam: Decreased Breath Sounds - Cardiovascular Exam Cardiovascular Exam: REGULAR RHYTHM, +S1, +S2, Murmur. absent: Bradycardia, Tachycardia, Clicks, Diastolic murmur, Gallop, Irregular Rhythm, JVD, RRR, Rubs , +S4 - GI/Abdominal Exam GI & Abdominal Exam: Soft, Normal Bowel Sounds - Rectal Exam Rectal Exam: Deferred - Extremities Exam Additional comments: B/L LE EDEMA LITTLE IMPROVEMENT - Back Exam Back Exam: NORMAL INSPECTION - Neurological Exam Neurological Exam: Alert, Awake, CN II-XII Intact, Normal Gait, Oriented x3 - Psychiatric Exam Psychiatric exam: Normal Affect, Normal Mood - Skin Skin Exam: Dry, Intact, Normal Color, Warm Assessment and Plan (1) CHF exacerbation Status: Acute (2) LBBB (left bundle branch block) Status: Acute (3) Noncompliance w/medication treatment due to intermit use of medication Status: Acute (4) Hyperlipidemia Status: Acute - Assessment and Plan (Free Text) Plan: MAP REMAINS ELEVATED DESPITE MEDICAL THERAPY AND LASIX WILL INCREASE COREG DOSE, CHANGE TO BUMEX, REPLEAT LYTES, RECHECK BNP, STOP HCTZ PT WILL BE GETTING BUMEX 2MG Q12 AND SPIRONOLACTONE. NEED TO MONITOR I/O CLOSELY. CONT ACEI THERAPY. CONT ASA. PRIOR CARDIAC STUDIES REVIEWED. 90 MIN TOTAL CARE TIME.
[2017-05-02] MEDS ORDERED: Potassium Chloride 20 mEq/15 ml LIQ UD PO ONE ×2 (11:55→14:00)
[2017-05-02] MEDS: Magnesium Sulfate 1 gm in D5W 1 GM/100 ML BAG IVPB SCH ×2 (12:00→13:00)
[2017-05-02] MEDS ORDERED: Magnesium Sulfate 1 gm in D5W 1 GM/100 ML BAG IVPB SCH (14:00)
[2017-05-03 08:11] LABS: BASO % 0.5 % (0.0-2.0); EOS # 0.1 K/uL (0.0-0.7); EOS % 1.7 % (0.0-4.0); HEMATOCRIT 35.3 % (35.0-51.0); LYMPH # 2.4 K/uL (1.0-4.3); LYMPH % 29.9 % (20.0-40.0); MONO # 0.7 K/uL (0.0-0.8); MONO % 8.3 % (0.0-10.0); RED CELL DISTRIBUTION WIDTH 14.7 % (11.5-14.5); WHITE BLOOD COUNT 8.1 K/uL (4.8-10.8)
[2017-05-03 08:15] LABS: INR 1.1
[2017-05-03 08:28] LABS: ALB/GLOB RATIO 1.1 (1.0-2.1); ALKALINE PHOSPHATASE 59 U/L (38-126); ALT/SGPT 26 U/L (21-72); AST/SGOT 15 U/L (17-59); BILIRUBIN,TOTAL 0.7 mg/dL (0.2-1.3); BLOOD UREA NITROGEN 14 mg/dL (9-20); CALCIUM 9.4 mg/dl (8.6-10.4); CARBON DIOXIDE 27 mmol/L (22-30); CHLORIDE 98 mmol/L (98-107); GFR AFRICAN-AMERICAN > 60; GLUCOSE,RANDOM 99 mg/dL (75-110); MAGNESIUM 1.8 mg/dL (1.6-2.3); POTASSIUM 3.5 mmol/L (3.6-5.2); SODIUM 137 mmol/L (132-148); TOTAL PROTEIN 6.6 g/dL (6.3-8.3)
[2017-05-03] MEDS: Enoxaparin 40 mg Syringe SC SCH (09:51)
[2017-05-03] MEDS: Potassium Chloride 20 mEq ER Tab PO SCH (09:51)
[2017-05-03] MEDS: Pantoprazole 40 mg EC Tab PO SCH (09:52)
[2017-05-03] MEDS: Potassium Chloride 20 mEq/15 ml LIQ UD PO SCH ×2 (11:53→19:05)
[2017-05-03] MEDS ORDERED: Potassium Chloride 20 mEq/15 ml LIQ UD PO ONE (18:52)
[2017-05-04] MEDS: Pantoprazole 40 mg EC Tab PO SCH (10:17)
[2017-05-04] MEDS: Potassium Chloride 20 mEq ER Tab PO SCH (10:18)
[2017-05-04] MEDS: Enoxaparin 40 mg Syringe SC SCH (10:18)
[2017-05-04 14:47] LABS: CHLORIDE 101 mmol/L (98-107); POTASSIUM 3.9 mmol/L (3.6-5.2); SODIUM 140 mmol/L (132-148)
[2017-05-04 14:50] LABS: BLOOD UREA NITROGEN 13 mg/dL (9-20); CARBON DIOXIDE 24 mmol/L (22-30); GFR AFRICAN-AMERICAN > 60; GLUCOSE,RANDOM 107 mg/dL (75-110)
[2017-05-04 14:51] LABS: CALCIUM 9.6 mg/dl (8.6-10.4); MAGNESIUM 1.7 mg/dL (1.6-2.3)
[2017-05-04 15:46] VITALS: BP 144/84; PULSE 63; RESP 20; TEMP 98.4; O2SAT 97
--- NOTE | 2017-05-13 20:31 | CARD ---
APPROVED REPORT EKG Measurement Heart [id number] <Conclusion> Sinus rhythm with occasional premature ventricular complexes Left axis deviation Left ventricular hypertrophy with QRS widening Cannot rule out Septal infarct, age undetermined Abnormal ECG
== END 2017-05-04 19:35 | disposition left against medical advice (07) | DRG 127 ==
LOC: C.ER 07:32 → C.9E 09:24 → C.6T 14:19 → OBSVTOIN 05-04 12:29
PROVIDERS: ADMIT Internal Medicine Pulmonary Disease; ATTEND Internal Medicine Pulmonary Disease
DX: I11.0 Hypertensive heart disease with heart failure (principal); I50.23 Acute on chronic systolic (congestive) heart failure; I69.354 Hemiplegia and hemiparesis following cerebral infarction affecting left non-dominant side; I42.9 Cardiomyopathy, unspecified; J44.9 Chronic obstructive pulmonary disease, unspecified; E87.6 Hypokalemia; E78.00 Pure hypercholesterolemia, unspecified; E78.5 Hyperlipidemia, unspecified; G40.909 Epilepsy, unspecified, not intractable, without status epilepticus; I44.7 Left bundle-branch block, unspecified; Z59.0 Homelessness; Z79.82 Long term (current) use of aspirin; Z86.711 Personal history of pulmonary embolism; Z87.440 Personal history of urinary (tract) infections; Z91.14 Patient's other noncompliance with medication regimen; Z99.3 Dependence on wheelchair; F17.210 Nicotine dependence, cigarettes, uncomplicated

== ENCOUNTER 2017-05-12 07:11 | Observation (INO) | payer MEDICAID ==
[2017-05-12 07:11] VITALS: BMI 34.0
--- NOTE | 2017-05-12 08:08 | C.PDOC ---
History Of Present Illness 56 year old with past medical history of COPD, CHF (echo on 03/2017 EF 25%), seizure disorder, CVA with residual left side weakness presents to the ED with SOB onset this morning. Patient reports his shortness of breath started this morning shortly after he woke up. Patient also complains leg swelling for 3 days , worse on the left side. Patient admits he forgot to take Lasix for the past few days, Patient reports his symptoms are similar to his previous CHF exacerbations. He states he had trouble sleeping, because if he lays flat he is gasping for air. Patient is wheelchair bound due to his CVA. Denies fever, chest pain, abdominal pain, nausea, vomiting, dizziness or headache. PCP: Dr. Adame Quality Control Assistant: Dr. Verduzco Time Seen by Provider: 05/12/17 07:45 Chief Complaint (Nursing): Shortness Of Breath History Per: Patient History/Exam Limitations: no limitations Onset/Duration Of Symptoms: Days (3) Exacerbating Factor(s): Laying Flat Current Respiratory Medications: See Home Med List Past Medical History Reviewed: Historical Data, Nursing Documentation, Vital Signs Vital Signs: Last Vital Signs Temp 98.0 F 05/12/17 10:55 Pulse 56 L 05/12/17 10:55 Resp 16 05/12/17 10:55 BP 150/91 H 05/12/17 10:55 Pulse Ox 98 05/12/17 10:55 - Medical History PMH: CHF, COPD, CVA, Deep Vein Thrombosis, Gastritis, HTN, Hypercholesterolemia , Hyperlipidemia, Peripheral Edema, Pulmonary Embolism, Seizures (last episode ) Family History: States: No Known Family Hx - Social History Hx Alcohol Use: No Hx Substance Use: No (as per pt) - Immunization History Hx Tetanus Toxoid Vaccination: Yes Hx Influenza Vaccination: Yes Hx Pneumococcal Vaccination: (unk) Review Of Systems Except As Marked, All Systems Reviewed And Found Negative. Constitutional: Positive for: Weakness (Left sided weakness ). Negative for: Fever Cardiovascular: Negative for: Chest Pain Respiratory: Positive for: Shortness of Breath Gastrointestinal: Negative for: Nausea, Vomiting, Abdominal Pain Musculoskeletal: Positive for: Other ((+) Bilateral leg swelling) Neurological: Negative for: Headache, Dizziness Physical Exam - Physical Exam Appears: Non-toxic, No Acute Distress, Chronically Ill Skin: Warm, Dry Head: Atraumatic, Normacephalic Eye(s): bilateral: Normal Inspection Oral Mucosa: Moist Neck: Normal ROM Chest: Symmetrical, No Tenderness Cardiovascular: Rhythm Regular, No Murmur Respiratory: No Decreased Breath Sounds, Rales, No Wheezing Gastrointestinal/Abdominal: Normal Exam, Soft, No Tenderness, No Guarding, No Rebound Extremity: Pedal Edema (+3 edema LLE. +2 edema RLE. ), Other ((+) Left hand contracted from previous CVA. ) Pulses: Right Radial: Normal Neurological/Psych: Oriented x3, Normal Speech, Normal Sensation ED Course And Treatment - Laboratory Results Result Diagrams: 05/12/17 09:14 05/12/17 09:14 ECG: Interpreted By Me, Viewed By Me (Dr Angel) ECG Rhythm: Sinus Rhythm ECG Interpretation: No Changes From Prior (04/30/17) Interpretation Of ECG: sinus rhythm at 72 bpm with occasional PVC, LAD, LVH; no acute changes from prior EKG on 04/30/17 Rate From EC (BPM ) O2 Sat by Pulse Oximetry: 100 (room air) Pulse Ox Interpretation: Normal - Other Rad CXR X-Ray: Viewed By Me, Read By Radiologist Interpretation: PROCEDURE: CHEST RADIOGRAPH, 1 VIEW. HISTORY: SOB. COMPARISON: 04/30/2017. FINDINGS: LUNGS: Minimal subsegmental atelectasis at left base. PLEURA: Markedly elevated left hemidiaphragm, unchanged. Possible diaphragmatic paralysis or eventration. No pleural effusion or pneumothorax. CARDIOVASCULAR: Normal. OSSEOUS STRUCTURES: No significant abnormalities. VISUALIZED UPPER ABDOMEN: Normal. OTHER FINDINGS: None. IMPRESSION: Elevated left hemidiaphragm with left basilar subsegmental atelectasis. Medical Decision Making Medical Decision Making: Impression: 56 year old male with SOB, likely CHF exacerbation Prior records reviewed: Patient last admitted 04/30-08/08 for CHF. Plan: * EKG * CXR * Labs Progress: EKG shows sinus rhythm at 72 bpm with occasional PVC, LAD, LVH; no acute changes from prior EKG on 04/30/17 Labs reviewed no acute findings or changes from prior visits. Patient reevaluated and remains unchanged. No distress. He asking to contact PCP Spoke with Dr Adame who will keep patient for observation Disposition - Disposition Disposition: HOSPITALIZED Disposition Time: 10:28 Condition: STABLE - POA Present On Arrival: None - Clinical Impression Clinical Impression: CHF exacerbation - PA / POWER [employer]IR CLIPPER / Resident Statement MD/DO has reviewed & agrees with the documentation as recorded. - Scribe Statement The provider has reviewed the documentation as recorded by the Scribe Viviana Saniz All medical record entries made by the Lázaroibe were at my direction and personally dictated by me. I have reviewed the chart and agree that the record accurately reflects my personal performance of the history, physical exam, medical decision making, and the department course for this patient. I have also personally directed, reviewed, and agree with the discharge instructions and disposition. Decision To Admit - Pt Status Changed To: Hospital Disposition Of: Observation - . Bed Request Type: Regular Admitting Physician: Chong Adame Patient Diagnosis: CHF exacerbation
[2017-05-12 09:17] LABS: BASO # 0.1 K/uL (0.0-0.2); BASO % 0.9 % (0.0-2.0); EOS # 0.2 K/uL (0.0-0.7); HEMATOCRIT 42.1 % (35.0-51.0); LYMPH # 3.4 K/uL (1.0-4.3); LYMPH % 35.3 % (20.0-40.0); MEAN CELL VOLUME 76.7 fL (80.0-94.0); MEAN CORPUSCULAR HEMOGLOBIN 23.8 pg (27.0-31.0); MEAN PLATELET VOLUME 8.9 fL (7.2-11.7); MONO # 0.6 K/uL (0.0-0.8); MONO % 6.8 % (0.0-10.0); NRBC % 0.1 % (0.0-2.0); WHITE BLOOD COUNT 9.6 K/uL (4.8-10.8)
[2017-05-12 09:27] LABS: CHLORIDE 102 mmol/L (98-107); POTASSIUM 3.5 mmol/L (3.6-5.2); SODIUM 139 mmol/L (132-148)
[2017-05-12 09:29] LABS: BILIRUBIN,TOTAL 0.8 mg/dL (0.2-1.3); CARBON DIOXIDE 24 mmol/L (22-30); GFR AFRICAN-AMERICAN > 60
[2017-05-12 09:30] LABS: ALB/GLOB RATIO 1.1 (1.0-2.1); ALKALINE PHOSPHATASE 69 U/L (38-126); ALT/SGPT 17 U/L (21-72); AST/SGOT 18 U/L (17-59); BLOOD UREA NITROGEN 10 mg/dL (9-20); CALCIUM 9.5 mg/dl (8.6-10.4); GLUCOSE,RANDOM 87 mg/dL (75-110); TOTAL PROTEIN 7.4 g/dL (6.3-8.3)
[2017-05-12 09:33] LABS: INR 1.1
--- NOTE | 2017-05-12 09:35 | RAD ---
PROCEDURE: CHEST RADIOGRAPH, 1 VIEW HISTORY: SOB COMPARISON: 04/30/2017 FINDINGS: LUNGS: Minimal subsegmental atelectasis at left base. PLEURA: Markedly elevated left hemidiaphragm, unchanged. Possible diaphragmatic paralysis or eventration. No pleural effusion or pneumothorax. CARDIOVASCULAR: Normal. OSSEOUS STRUCTURES: No significant abnormalities. VISUALIZED UPPER ABDOMEN: Normal. OTHER FINDINGS: None. IMPRESSION: Elevated left hemidiaphragm with left basilar subsegmental atelectasis.
[2017-05-12 09:41] LABS: RBC URINE 1 /hpf (0-3); URINE BILIRUBIN NEGATIVE (NEGATIVE); URINE BLOOD NEGATIVE (NEGATIVE); URINE COLOR Yellow (YELLOW); URINE GLUCOSE (UA) NORMAL (Normal); URINE KETONE NEGATIVE (NEGATIVE); URINE LEUKOCYTE ESTERASE NEG Leu/uL (Negative); URINE PROTEIN 1+ mg/dL (NEGATIVE); URINE URIC ACID CRYSTALS OCC /hpf (<OCC); WBC URINE 1 /hpf (0-5)
--- NOTE | 2017-05-12 14:11 | CP.PCM.PN ---
Subjective - Date & Time of Evaluation Date of Evaluation: 05/12/17 Time of Evaluation: 11:00 - Subjective Subjective: PGY3 on medicine Dr. Adame service: 56 year old male with past medical history of COPD, CHF (echo on 03/2017 EF 25%), seizure, CVA with residual left side weakness presents to the ED with SOB. Patient reports his shortness of breath started this morning 3 hours ago. Patient also complains of chronic bilaterally lower extremity swelling but not getting worse or better. Patient states his presenting symptom is simliar to his previous CHF exacerbations, and was recently discharged from hospital for similar complaints. He sleeps with 2 pillows at night, denies having waking up in middle of the night gasping for air. Patient is wheelchair bound due to his CVA. Patient denies headache, fever, chills, chest pain, abdominal pain, nausea, or vomiting. Resting comfortably on bed. Hydrogen Plant Operator: Dr. Verduzco PMH: COPD, CHF (echo on 03/2017 EF 25%), seizure, CVA PSH: denies Med: see MAR ALL: NKA SH: former smoker, denies drinking or drugs use FH: unknown Objective - Vital Signs/Intake and Output Vital Signs (last 24 hours): Temp Pulse Resp BP Pulse Ox 98.0 F 56 L 16 150/91 H 98 05/12/17 10:55 05/12/17 10:55 05/12/17 10:55 05/12/17 10:55 05/12/17 10:55 - Labs Labs: PT 11.8 SECONDS (9.7-12.2) 05/12/17 09:14 INR 1.1 05/12/17 09:14 APTT 31 SECONDS (21-34) 05/12/17 09:14 - Constitutional Appears: Non-toxic, No Acute Distress, Chronically Ill - Head Exam Head Exam: NORMOCEPHALIC - Eye Exam Eye Exam: Normal appearance - Respiratory Exam Respiratory Exam: Clear to Ausculation Bilateral, NORMAL BREATHING PATTERN. absent: Rhonchi, Wheezes - Cardiovascular Exam Cardiovascular Exam: REGULAR RHYTHM, +S1, +S2. absent: Gallop, JVD, Rubs - GI/Abdominal Exam GI & Abdominal Exam: Soft, Normal Bowel Sounds. absent: Tenderness - Extremities Exam Extremities Exam: Pedal Edema (2+) - Neurological Exam Neurological Exam: Alert, Awake, Oriented x3 - Psychiatric Exam Psychiatric exam: Normal Mood - Skin Skin Exam: Intact Assessment and Plan - Assessment and Plan (Free Text) Assessment: CHF exacerbation - First ADAM negative, pending x2 - BNP: 1230 - Lasix 40mg given in the ED - Lasix 60mg q12H IVP - Daily weight, strict I&O HTN -Resume home Coreg, enalapril, spironolactone and Bumex (per Dr. Weiss on last admission) Seizure -Cont Keppra -Seizure precautions Prophylactic measure -Protonix -Lovenox -Ativan PRN Case discussed with Dr. Adame
[2017-05-12] MEDS: Potassium Chloride 20 mEq ER Tab PO SCH (15:59)
[2017-05-12 18:23] VITALS: RESP 20
--- NOTE | 2017-05-13 07:23 | CP.PCM.PN ---
Subjective - Date & Time of Evaluation Date of Evaluation: 05/13/17 Time of Evaluation: 07:10 - Subjective Subjective: PGY-[address] Adame Patient seen and examined at bedside. No acute events reported overnight. Patient is resting in bed comfortably. He reports the bilateral leg swelling has improved. He denies having headache, fever, chills, shortness of breath, chest pain, nausea, vomiting, or diarrhea. Objective - Vital Signs/Intake and Output Vital Signs (last 24 hours): Temp Pulse Resp BP Pulse Ox 98.3 F 84 20 125/77 96 05/12/17 22:33 05/13/17 01:00 05/12/17 22:33 05/12/17 22:33 05/12/17 22:33 - Medications Medications: Current Medications Aspirin (Ecotrin) 81 mg PO DAILY [facility] Carvedilol (Coreg) 6.25 mg PO BID [facility] Last Admin: 05/12/17 19:00 Dose: Not Given Enalapril Maleate (Vasotec) 5 mg PO DAILY [facility] Last Admin: 05/12/17 16:01 Dose: 5 mg Enoxaparin Sodium (Lovenox) 40 mg SC DAILY [facility] Ferrous Sulfate (Feosol) 325 mg PO DAILY [facility] Last Admin: 05/12/17 15:59 Dose: 325 mg Furosemide (Lasix) 40 mg IVP Q12 [facility] Last Admin: 05/12/17 21:54 Dose: 40 mg Levetiracetam (Keppra) 750 mg PO DAILY [facility] Last Admin: 05/12/17 15:59 Dose: 750 mg Lorazepam (Ativan) 1 mg IVP Q4H PRN PRN Reason: seizure Pantoprazole Sodium (Protonix Ec Tab) 40 mg PO DAILY [facility] Potassium Chloride (K-Dur 20 Meq Er Tab) 20 meq PO DAILY [facility] Last Admin: 05/12/17 15:59 Dose: 20 meq Spironolactone (Aldactone) 25 mg PO DAILY [facility] Last Admin: 05/12/17 15:59 Dose: 25 mg - Labs Labs: PT 11.8 SECONDS (9.7-12.2) 05/12/17 09:14 INR 1.1 05/12/17 09:14 APTT 31 SECONDS (21-34) 05/12/17 09:14 - Constitutional Appears: Non-toxic, No Acute Distress - Head Exam Head Exam: ATRAUMATIC - Eye Exam Eye Exam: Normal appearance - ENT Exam ENT Exam: Mucous Membranes Moist - Neck Exam Neck Exam: Normal Inspection - Respiratory Exam Respiratory Exam: Clear to Ausculation Bilateral, NORMAL BREATHING PATTERN. absent: Wheezes, Respiratory Distress - Cardiovascular Exam Cardiovascular Exam: REGULAR RHYTHM, +S1, +S2. absent: Murmur - GI/Abdominal Exam GI & Abdominal Exam: Soft, Normal Bowel Sounds. absent: Tenderness - Neurological Exam Neurological Exam: Alert, Awake, Oriented x3 - Psychiatric Exam Psychiatric exam: Normal Affect, Normal Mood - Skin Skin Exam: Dry, Intact, Normal Color, Warm Assessment and Plan - Assessment and Plan (Free Text) Assessment: CHF exacerbation - First ADAM negative x3 - BNP: 1230 - Lasix 40mg given in the ED - Lasix 60mg q12H IVP - Daily weight, strict I&O HTN -Resume home Coreg, enalapril, spironolactone and Bumex (per Dr. Weiss on last admission) Seizure -Cont Keppra -Seizure precautions Prophylactic measure -Protonix -Lovenox -Ativan PRN Disposition: Patient is stable to be discharge per Dr. Adame Case discussed with Dr. Adame
[2017-05-13 07:44] LABS: CHLORIDE 104 mmol/L (98-107)
[2017-05-13 07:45] LABS: POTASSIUM 3.3 mmol/L (3.6-5.2); SODIUM 140 mmol/L (132-148)
[2017-05-13 07:47] LABS: ALB/GLOB RATIO 1.1 (1.0-2.1); AST/SGOT 13 U/L (17-59); BILIRUBIN,TOTAL 0.7 mg/dL (0.2-1.3); BLOOD UREA NITROGEN 11 mg/dL (9-20); CARBON DIOXIDE 25 mmol/L (22-30); GFR AFRICAN-AMERICAN > 60; TOTAL PROTEIN 6.5 g/dL (6.3-8.3)
[2017-05-13 07:48] LABS: ALKALINE PHOSPHATASE 61 U/L (38-126); ALT/SGPT 22 U/L (21-72); BASO % 0.4 % (0.0-2.0); CALCIUM 9.3 mg/dl (8.6-10.4); EOS # 0.1 K/uL (0.0-0.7); EOS % 0.7 % (0.0-4.0); GLUCOSE,RANDOM 104 mg/dL (75-110); HEMATOCRIT 39.6 % (35.0-51.0); LYMPH # 2.5 K/uL (1.0-4.3); LYMPH % 23.1 % (20.0-40.0); MEAN CELL VOLUME 75.8 fL (80.0-94.0); MEAN CORPUSCULAR HEMOGLOBIN 23.6 pg (27.0-31.0); MEAN CORPUSCULAR HGB CONC 31.2 g/dL (33.0-37.0); MEAN PLATELET VOLUME 9.2 fL (7.2-11.7); MONO # 0.7 K/uL (0.0-0.8); MONO % 6.4 % (0.0-10.0); NRBC % 0.1 % (0.0-2.0); RED CELL DISTRIBUTION WIDTH 14.6 % (11.5-14.5); WHITE BLOOD COUNT 10.9 K/uL (4.8-10.8)
[2017-05-13 07:49] VITALS: O2SAT 97
[2017-05-13] MEDS ORDERED: Potassium Chloride 20 mEq ER Tab PO ONE (09:30)
[2017-05-13] MEDS ORDERED: Pantoprazole 40 mg EC Tab PO SCH (10:00)
[2017-05-13] MEDS ORDERED: Enoxaparin 40 mg Syringe SC SCH (10:00)
[2017-05-13] MEDS: Potassium Chloride 20 mEq ER Tab PO SCH (10:29)
--- NOTE | 2017-05-13 11:44 | CARD ---
APPROVED REPORT EKG Measurement Heart [id number] <Conclusion> Sinus rhythm with occasional premature ventricular complexes Left axis deviation Left ventricular hypertrophy with QRS widening Inferior infarct, age undetermined Abnormal ECG
--- NOTE | 2017-05-13 12:24 | PCM.HF ---
Heart Failure Core Measure - Heart Failure Ejection Fraction: Less Than 40 % TRACEY Inhibitor Prescribed: Yes Beta-Sonia Prescribed: Carvedilol Angiotensin II Receptor Sonia Prescribed: No Contraindication/Reason for not providing: ON TRACEY AnticoagulationTherapy for Atrial Fibrillation/Atrialflutter: No Contraindication/Reason for not providing: NO AFIB Aldosterone Antagonist Prescribed: No Contraindication/Reason for not providing: WAS D/C BY [facility] AFTER LAST ADMISSION Hydralazine Nitrate Prescribed: No Contraindication/Reason for not providing: WAS D/C BY [facility]IO AFTER LAST ADMISSION Implantable Cardioverter Defibrillator Therapy: No Contraindication/Reason for not providing: NO H/O Cardiac Resynchronization Therapy Prescribed: No Contraindication/Reason for not providing: NO H/O - Follow up Will be discharged to: Home Follow Up Date (must be within 7 days from discharge): 05/19/17 Follow Up Time: 09:00
[2017-05-13 15:53] VITALS: BP 126/88; PULSE 76; TEMP 98.4
== END 2017-05-13 16:29 | disposition home or self-care (01) ==
LOC: C.ER 07:11 → C.9E 10:28 → C.3T 14:14 → C.9E 14:57 → C.5T 16:41
PROVIDERS: ADMIT Internal Medicine Pulmonary Disease; ATTEND Internal Medicine Pulmonary Disease
DX: I11.0 Hypertensive heart disease with heart failure (principal); I50.9 Heart failure, unspecified; G40.909 Epilepsy, unspecified, not intractable, without status epilepticus; E78.5 Hyperlipidemia, unspecified; J44.9 Chronic obstructive pulmonary disease, unspecified; Z86.711 Personal history of pulmonary embolism; Z87.891 Personal history of nicotine dependence; Z99.3 Dependence on wheelchair
CPT/HCPCS: 36415; 71010; 80053; 81001; 83036; 83880; 84484; 85025; 85610; 85730; 93005; 96374; 99285; G0378; J1650; J1940

== ENCOUNTER 2017-06-03 13:08 | Inpatient (IN) | payer MEDICAID ==
[2017-06-03 13:08] VITALS: BMI 34.0
--- NOTE | 2017-06-03 13:32 | C.PDOC ---
History Of Present Illness 56 year old with past medical history of COPD, CHF (echo on 03/2017 EF 25%), seizure disorder, CVA with residual left side weakness BIBA for evaluation of Right hand weakness " was dropping everything from my hand". Pt appears very drowsy at present time, admits " take pain medication". Pt took pain medication prior to onset of Right hand weakness. Otherwise, pt denies fever, chills, headache, dizziness, visual changes, N/V, neck pain, CP, SOB, dyspnea, diaphoresis, palpitation, abd. pain or any other active complaints. Patient is wheelchair bound due to his CVA PCP: Dr. Adame Metal Sprayer: Dr. Verduzco Time Seen by Provider: 06/03/17 13:17 Chief Complaint (Nursing): Weakness/Neurological Deficit History Per: Patient Past Medical History Reviewed: Historical Data, Nursing Documentation, Vital Signs Vital Signs: Last Vital Signs Temp 98.4 F 06/03/17 18:16 Pulse 71 06/03/17 18:16 Resp 20 06/03/17 18:16 BP 129/83 06/03/17 18:16 Pulse Ox 96 06/03/17 18:16 - Medical History PMH: CHF, COPD, CVA, Deep Vein Thrombosis, Gastritis, HTN, Hypercholesterolemia , Hyperlipidemia, Peripheral Edema, Pulmonary Embolism, Seizures (last episode ) Denies: Asthma, Atrial Fibrillation, Bronchitis, Cardia Arrhythmia, Emphysema , Mitral Valve Prolapse, Pneumonia, Chronic Kidney Disease, Sleep Apnea Surgical History: Denies: Pacemaker Family History: States: Unknown Family Hx - Social History Hx Tobacco Use: Yes Hx Alcohol Use: Yes Hx Substance Use: Yes (as per pt) - Immunization History Hx Tetanus Toxoid Vaccination: Yes Hx Influenza Vaccination: Yes Hx Pneumococcal Vaccination: (unk) Review Of Systems Except As Marked, All Systems Reviewed And Found Negative. Constitutional: Negative for: Fever, Chills Eyes: Negative for: Vision Change ENT: Negative for: Throat Pain Cardiovascular: Negative for: Chest Pain, Palpitations, Orthopnea Respiratory: Negative for: Cough, Shortness of Breath, Wheezing Gastrointestinal: Negative for: Nausea, Vomiting, Abdominal Pain, Diarrhea Skin: Negative for: Rash Neurological: Positive for: Weakness (Right hand). Negative for: Altered Mental Status, Headache, Dizziness Physical Exam - Physical Exam Appears: Well, No Acute Distress, Other (drowsy) Skin: Normal Color, Warm, Dry Eye(s): bilateral: PERRL Nose: Normal Oral Mucosa: No Drooling Throat: No Drooling Neck: Supple Cardiovascular: Rhythm Regular, No JVD Respiratory: No Decreased Breath Sounds, No Accessory Muscle Use, No Stridor, No Wheezing Gastrointestinal/Abdominal: Soft, No Tenderness, No Distention, No Guarding Extremity: Swelling (mild non-pitting edema B/L ankles) Neurological/Psych: Oriented x3, No Normal Speech (slightly slurred speech), Other (left sided hemiparesis) ED Course And Treatment - Laboratory Results Result Diagrams: 06/03/17 13:48 06/03/17 13:48 Lab Interpretation: Abnormal ECG: Interpreted By Me, Viewed By Me (and ED attending) Interpretation Of ECG: SR@68/min, LAD, LVH, T wave inversion in I, AVL, V2-V6. Compare to old EKG from 04/07/17- no new acute abnoramlities. O2 Sat by Pulse Oximetry: 96 Pulse Ox Interpretation: Normal - CT Scan/US CT head Other Rad Studies (CT/US): Radiology Report Reviewed CT/US Interpretation: Accession No. : [id number]. Patient Name / ID : SHON GALEAS / [id number]. Exam Date : 06/03/2017 14:30:10 ( Approved ). Study Comment : Sex / Age : M / 56Y. Creator : Gume Escobar MD. Dictator : Gume Escobar MD. Donor Floor Technician : Lockstitch Front Edge Tape Sewer : Gume Escobar MD. Approver2 : Report Date : 06/03/2017 15:26:09. My Comment : . PROCEDURE: CT HEAD WITHOUT CONTRAST. HISTORY: Headache. COMPARISON: None available. TECHNIQUE: Axial computed tomography images were obtained through the head/brain without intravenous contrast. Radiation dose: Total exam DLP = 1108 mGy-cm. This CT exam was performed using one or more of the following dose reduction techniques: Automated exposure control, adjustment of the mA and/ or kV according to patient size, and/or use of iterative reconstruction technique. FINDINGS: HEMORRHAGE: No intracranial hemorrhage. BRAIN: No mass effect or edema. Old right frontal infarct with right basal ganglia chronic lacune as well. VENTRICLES: Unremarkable. No hydrocephalus. CALVARIUM : Unremarkable. PARANASAL SINUSES: Unremarkable as visualized. No significant inflammatory changes. MASTOID AIR CELLS: Unremarkable as visualized. No inflammatory changes. OTHER FINDINGS: None. IMPRESSION: Old right frontal infarct. No acute hemorrhage. Progress Note: Pt remained unchanged in ED. Sleeping comfortably in bed, easily arousable by verbal stimuli. Blood work review, high troponin I. EKG review and unchanged from previous study few month ago. CT head- unchanged. LEELEE, beta veronica given. Pt remained SR@70'/min on monitore. case discussed with and admission arranged to tele. Disposition - Disposition Disposition: HOSPITALIZED Disposition Time: 15:49 Condition: STABLE - Clinical Impression Clinical Impression: Elevated troponin, Opiate overdose
[2017-06-03 13:55] LABS: BASO # 0.1 K/uL (0.0-0.2); BASO % 0.7 % (0.0-2.0); EOS # 0.2 K/uL (0.0-0.7); EOS % 2.7 % (0.0-4.0); HEMATOCRIT 37.4 % (35.0-51.0); LYMPH # 2.8 K/uL (1.0-4.3); LYMPH % 34.3 % (20.0-40.0); MEAN CELL VOLUME 77.4 fL (80.0-94.0); MEAN CORPUSCULAR HEMOGLOBIN 24.9 pg (27.0-31.0); MEAN CORPUSCULAR HGB CONC 32.2 g/dL (33.0-37.0); MEAN PLATELET VOLUME 9.2 fL (7.2-11.7); MONO # 0.5 K/uL (0.0-0.8); MONO % 6.4 % (0.0-10.0); WHITE BLOOD COUNT 8.2 K/uL (4.8-10.8)
[2017-06-03 14:04] LABS: INR 1.1
[2017-06-03 14:06] LABS: ALB/GLOB RATIO 1.3 (1.0-2.1); ALKALINE PHOSPHATASE 49 U/L (38-126); ALT/SGPT 23 U/L (21-72); AST/SGOT 15 U/L (17-59); BILIRUBIN,TOTAL 0.6 mg/dL (0.2-1.3); BLOOD UREA NITROGEN 13 mg/dL (9-20); CALCIUM 9.3 mg/dl (8.6-10.4); CARBON DIOXIDE 25 mmol/L (22-30); CHLORIDE 102 mmol/L (98-107); GFR AFRICAN-AMERICAN > 60; GLUCOSE,RANDOM 97 mg/dL (75-110); POTASSIUM 3.5 mmol/L (3.6-5.2); SODIUM 143 mmol/L (132-148); TOTAL PROTEIN 6.8 g/dL (6.3-8.3)
[2017-06-03] MEDS ORDERED: Sodium Chloride 0.9% 1,000 ML IV ONE (14:51)
[2017-06-03] MEDS ORDERED: Sodium Chloride 0.9% 1,000 ML ONE (15:24)
--- NOTE | 2017-06-03 15:27 | CT ---
PROCEDURE: CT HEAD WITHOUT CONTRAST. HISTORY: Headache COMPARISON: None available. TECHNIQUE: Axial computed tomography images were obtained through the head/brain without intravenous contrast. Radiation dose: Total exam DLP = 1108 mGy-cm. This CT exam was performed using one or more of the following dose reduction techniques: Automated exposure control, adjustment of the mA and/or kV according to patient size, and/or use of iterative reconstruction technique. FINDINGS: HEMORRHAGE: No intracranial hemorrhage. BRAIN: No mass effect or edema. Old right frontal infarct with right basal ganglia chronic lacune as well. VENTRICLES: Unremarkable. No hydrocephalus. CALVARIUM: Unremarkable. PARANASAL SINUSES: Unremarkable as visualized. No significant inflammatory changes. MASTOID AIR CELLS: Unremarkable as visualized. No inflammatory changes. OTHER FINDINGS: None. IMPRESSION: Old right frontal infarct. No acute hemorrhage.
[2017-06-03 16:03] LABS: RBC URINE 1 /hpf (0-3); URINE BILIRUBIN NEGATIVE (NEGATIVE); URINE BLOOD NEGATIVE (NEGATIVE); URINE COLOR Amber (YELLOW); URINE GLUCOSE (UA) NORMAL (Normal); URINE KETONE TRACE mg/dL (NEGATIVE); URINE LEUKOCYTE ESTERASE NEG Leu/uL (Negative); URINE PROTEIN 2+ mg/dL (NEGATIVE); URINE UROBILINOGEN NORMAL mg/dL (0.2-1.0); WBC URINE 1 /hpf (0-5)
[2017-06-04] MEDS ORDERED: Heparin25000 units/250ml 1/2NS 25,000 UNITS/250 ML BAG IV PRN ×2 (08:59→21:30)
--- NOTE | 2017-06-04 09:13 | CP.PCM.PN ---
Subjective - Date & Time of Evaluation Date of Evaluation: 06/04/17 Time of Evaluation: 09:10 - Subjective Subjective: M[employer]ER [employer]END[employer] NOTES LABS THIS AM NOTED TROPONIN ELEVATION OF 3RD troponin - 5.5300 , IST TROPONIN- 0.1310, 2ND TROPONIN- 0.1050 Pt seen and examined , denies any chest pain, sob, diaphoresis , N/V Objective - Vital Signs/Intake and Output Vital Signs (last 24 hours): Temp Pulse Resp BP Pulse Ox 98.7 F 54 L 20 150/79 97 06/04/17 08:00 06/04/17 08:41 06/04/17 08:00 06/04/17 08:00 06/04/17 08:00 Intake and Output: 06/04/17 06/04/17 06:59 18:59 Output Total 200 Balance -200 - Medications Medications: Current Medications Aspirin (Ecotrin) 81 mg PO DAILY [facility] Carvedilol (Coreg) 6.25 mg PO BID [facility] Enoxaparin Sodium (Lovenox) 40 mg SC DAILY [facility] Ferrous Sulfate (Feosol) 325 mg PO DAILY [facility] Furosemide (Lasix) 20 mg PO BID [facility] Heparin Sodium/Sodium Chloride (Heparin 96255 Units/250ml 1/2 Normal Saline) 25 ,000 units in 250 mls @ 0 mls/hr IV .Q0M PRN; Protocol; Per Protocol PRN Reason: PROTOCOL Levetiracetam (Keppra) 750 mg PO DAILY [facility] Rosuvastatin Calcium (Crestor) 20 mg PO HS [facility] Last Admin: 06/03/17 23:16 Dose: 20 mg Spironolactone (Aldactone) 25 mg PO DAILY [facility] - Labs Labs: PT 12.3 SECONDS (9.7-12.2) H 06/03/17 13:48 INR 1.1 06/03/17 13:48 APTT 30 SECONDS (21-34) 06/03/17 13:48 - Constitutional Appears: Non-toxic, No Acute Distress - Respiratory Exam Respiratory Exam: Clear to Ausculation Bilateral, NORMAL BREATHING PATTERN - Cardiovascular Exam Cardiovascular Exam: REGULAR RHYTHM (bradycardia), +S1, +S2 - Neurological Exam Neurological Exam: Alert, Awake, Oriented x3 Assessment and Plan - Assessment and Plan (Free Text) Assessment: A/P 56 year old male with past medical history of COPD, CHF , seizure disorder, CVA with residual left side weakness , admitted for left side weakness, + tropoinin tropinin - 3rd elevated to 5.5 300 stat EKG- done - ST elevations on V1 and v6 ON MONITOR - PVCS , 7 BEATS OF V- TACH AND ST ELEVATION Heparin drip started after bolus Plavix [address] Rincon cardiology consult - case discussed with Dr. Rincon D/W with Dr. Kumar for ICU eval . Patient transferred to ICU for further monitoring The above plan discussed with Dr. Ken and agrees
[2017-06-04] MEDS ORDERED: Enoxaparin 40 mg Syringe SC SCH (10:00)
--- NOTE | 2017-06-04 13:07 | CARD ---
APPROVED REPORT EKG Measurement Heart [id number] <Conclusion> Normal sinus rhythm Left ventricular hypertrophy with QRS widening ST & T wave abnormality, consider anterolateral ischemia Abnormal ECG
[2017-06-04] MEDS ORDERED: Perflutren Lipid Microsphere 1.5 ML SUS IV ONE (14:22)
--- NOTE | 2017-06-04 18:39 | CP.PCM.CON ---
History of Present Illness - History of Present Illness History of Present Illness: ICU evaluation for elevated troponin 56 year old with past medical history of COPD, CHF (echo on 03/2017 EF 25%), seizure disorder, CVA with residual left side weakness presented to emergency room for evaluation off right-sided weakness. Patient admits to taking pain medication. Denies any chest pain, denies shortness of breath. Patient found to have elevated troponin and requested to transfer to ICU. Patient is wheelchair bound due to his CVA Review of Systems - Review of Systems All systems: reviewed and no additional remarkable complaints except (Right- sided weakness) Past Patient History - Infectious Disease Hx of Infectious Diseases: None - Past Medical History & Family History Past Medical History?: Yes - Past Social History Smoking Status: Heavy Smoker > 10 Cigarettes Daily - CARDIAC Hx Atrial Fibrillation: No Hx Cardia Arrhythmia: No Hx Congestive Heart Failure: Yes Hx Hypercholesterolemia: Yes Hx Hypertension: Yes Hx Mitral Valve Prolapse: No Hx Pacemaker: No Hx Peripheral Edema: Yes - PULMONARY Hx Asthma: No Hx Bronchitis: No Hx Chronic Obstructive Pulmonary Disease (COPD): Yes Hx Emphysema: No Hx Pneumonia: No Hx Pulmonary Embolism: Yes Hx Sleep Apnea: No - NEUROLOGICAL Hx Seizures: Yes (last episode 02/2017) - HEENT Hx HEENT Problems: No - RENAL Hx Chronic Kidney Disease: No - ENDOCRINE/METABOLIC Hx Endocrine Disorders: No - HEMATOLOGICAL/ONCOLOGICAL Hx Blood Disorders: No - INTEGUMENTARY Hx Dermatological Problems: No - MUSCULOSKELETAL/RHEUMATOLOGICAL Hx Musculoskeletal Disorders: Yes Hx Falls: Yes Other/Comment: USES WHEELCHAIR AND WALKER - GASTROINTESTINAL Hx Gastritis: Yes - GENITOURINARY/GYNECOLOGICAL Hx Genitourinary Disorders: Yes Hx Incontinence: Yes Hx Urinary Tract Infection: Yes - PSYCHIATRIC Hx Substance Use: Yes - SURGICAL HISTORY Hx Surgeries: Yes Other/Comment: ivc filter - ANESTHESIA Hx Anesthesia: Yes Hx Anesthesia Reactions: No Meds Allergies/Adverse Reactions: Allergies Allergy/AdvReac Type Severity Reaction Status Date / Time No Known Allergies Allergy Verified 06/03/17 13:32 - Medications Medications: Current Medications Aspirin (Ecotrin) 81 mg PO DAILY [facility] Last Admin: 06/04/17 10:14 Dose: 81 mg Carvedilol (Coreg) 6.25 mg PO BID [facility] Last Admin: 06/04/17 17:46 Dose: 6.25 mg Ferrous Sulfate (Feosol) 325 mg PO DAILY [facility] Last Admin: 06/04/17 10:13 Dose: 325 mg Furosemide (Lasix) 20 mg PO BID [facility] Last Admin: 06/04/17 17:46 Dose: 20 mg Heparin Sodium/Sodium Chloride (Heparin 43349 Units/250ml 1/2 Normal Saline) 25 ,000 units in 250 mls @ 12.628 mls/hr IV .[id number] PRN; Protocol; 12 UNITS/KG/HR PRN Reason: PROTOCOL Last Admin: 06/04/17 10:38 Dose: 12 units/kg/hr, 12.628 mls/hr Levetiracetam (Keppra) 750 mg PO DAILY [facility] Last Admin: 06/04/17 10:14 Dose: 750 mg Rosuvastatin Calcium (Crestor) 20 mg PO HS [facility] Last Admin: 06/03/17 23:16 Dose: 20 mg Spironolactone (Aldactone) 25 mg PO DAILY [facility] Last Admin: 06/04/17 10:13 Dose: 25 mg Physical Exam - Head Exam Head Exam: ATRAUMATIC, NORMOCEPHALIC - Eye Exam Eye Exam: Normal appearance - ENT Exam ENT Exam: Mucous Membranes Moist - Neck Exam Neck exam: Positive for: Normal Inspection - Respiratory Exam Respiratory Exam: Clear to Auscultation Bilateral - Cardiovascular Exam Cardiovascular Exam: REGULAR RHYTHM - GI/Abdominal Exam GI & Abdominal Exam: Normal Bowel Sounds, Soft - Extremities Exam Extremities exam: Positive for: normal inspection Results - Vital Signs Recent Vital Signs: Last Vital Signs Temp 98.6 F 06/04/17 16:00 Pulse 56 L 06/04/17 17:20 Resp 12 06/04/17 17:20 BP 134/93 H 06/04/17 17:46 Pulse Ox 99 06/04/17 17:20 - Labs Result Diagrams: 06/03/17 13:48 06/03/17 13:48 Labs: Laboratory Results - last 24 hr 06/03/17 06/04/17 22:58 07:26 Total Creatine Kinase 94 182 H CK-MB (Mass) 0.93 12.1 H Troponin I, Quant 0.1050 5.5300 H* Assessment & Plan (1) Elevated troponin Status: Acute Comment: 56-year-old male admitted with right-sided weakness and elevated troponin. Continue Plavix, aspirin. Possible cardiac cath tomorrow. Echocardiogram
--- NOTE | 2017-06-04 20:31 | CP.PCM.CON ---
History of Present Illness - History of Present Illness History of Present Illness: Patient seen examined. NSTEMI. transferred to the ICU. I discussed cardiac cath with patient. NPO after midnight Past Patient History - Infectious Disease Hx of Infectious Diseases: None - Past Medical History & Family History Past Medical History?: Yes - Past Social History Smoking Status: Heavy Smoker > 10 Cigarettes Daily - CARDIAC Hx Atrial Fibrillation: No Hx Cardia Arrhythmia: No Hx Congestive Heart Failure: Yes Hx Hypercholesterolemia: Yes Hx Hypertension: Yes Hx Mitral Valve Prolapse: No Hx Pacemaker: No Hx Peripheral Edema: Yes - PULMONARY Hx Asthma: No Hx Bronchitis: No Hx Chronic Obstructive Pulmonary Disease (COPD): Yes Hx Emphysema: No Hx Pneumonia: No Hx Pulmonary Embolism: Yes Hx Sleep Apnea: No - NEUROLOGICAL Hx Seizures: Yes (last episode 02/2017) - HEENT Hx HEENT Problems: No - RENAL Hx Chronic Kidney Disease: No - ENDOCRINE/METABOLIC Hx Endocrine Disorders: No - HEMATOLOGICAL/ONCOLOGICAL Hx Blood Disorders: No - INTEGUMENTARY Hx Dermatological Problems: No - MUSCULOSKELETAL/RHEUMATOLOGICAL Hx Musculoskeletal Disorders: Yes Hx Falls: Yes Other/Comment: USES WHEELCHAIR AND WALKER - GASTROINTESTINAL Hx Gastritis: Yes - GENITOURINARY/GYNECOLOGICAL Hx Genitourinary Disorders: Yes Hx Incontinence: Yes Hx Urinary Tract Infection: Yes - PSYCHIATRIC Hx Substance Use: Yes - SURGICAL HISTORY Hx Surgeries: Yes Other/Comment: ivc filter - ANESTHESIA Hx Anesthesia: Yes Hx Anesthesia Reactions: No Meds Allergies/Adverse Reactions: Allergies Allergy/AdvReac Type Severity Reaction Status Date / Time No Known Allergies Allergy Verified 06/03/17 13:32 - Medications Medications: Current Medications Aspirin (Ecotrin) 81 mg PO DAILY [facility] Last Admin: 06/04/17 10:14 Dose: 81 mg Carvedilol (Coreg) 6.25 mg PO BID [facility] Last Admin: 06/04/17 17:46 Dose: 6.25 mg Ferrous Sulfate (Feosol) 325 mg PO DAILY [facility] Last Admin: 06/04/17 10:13 Dose: 325 mg Furosemide (Lasix) 20 mg PO BID [facility] Last Admin: 06/04/17 17:46 Dose: 20 mg Heparin Sodium/Sodium Chloride (Heparin 25845 Units/250ml 1/2 Normal Saline) 25 ,000 units in 250 mls @ 12.628 mls/hr IV .[id number] PRN; Protocol; 12 UNITS/KG/HR PRN Reason: PROTOCOL Last Admin: 06/04/17 10:38 Dose: 12 units/kg/hr, 12.628 mls/hr Levetiracetam (Keppra) 750 mg PO DAILY [facility] Last Admin: 06/04/17 10:14 Dose: 750 mg Rosuvastatin Calcium (Crestor) 20 mg PO HS [facility] Last Admin: 06/03/17 23:16 Dose: 20 mg Spironolactone (Aldactone) 25 mg PO DAILY [facility] Last Admin: 06/04/17 10:13 Dose: 25 mg Results - Vital Signs Recent Vital Signs: Last Vital Signs Temp 98.6 F 06/04/17 18:00 Pulse 56 L 06/04/17 17:20 Resp 12 06/04/17 17:20 BP 134/93 H 06/04/17 17:46 Pulse Ox 99 06/04/17 17:20 - Labs Result Diagrams: 06/03/17 13:48 06/03/17 13:48 Labs: Laboratory Results - last 24 hr 06/03/17 06/04/17 06/04/17 22:58 07:26 18:48 APTT 33 Total Creatine Kinase 94 182 H CK-MB (Mass) 0.93 12.1 H Troponin I, Quant 0.1050 5.5300 H*
--- NOTE | 2017-06-04 20:31 | CP.PCM.CON ---
History of Present Illness - History of Present Illness History of Present Illness: I was asked to see patient by Dr. Ken. Patient is a 56 year old male with PMH HTN, CVA, hypercholesterolemia who presents to [facility] initally with right arm weakness. The patient developed chest pain and ruled in for a myocardial infarction. He was placed on heparin and transferred to ICU. He is currently chest pain free. Review of Systems - Constitutional Constitutional: absent: As Per HPI, Anorexia, Chills, Daytime Sleepiness, Excessive Sweating, Fatigue, Fever, Frequent Falls, Headache, Increased Appetite , Lethargy, Malaise, Night Sweats, Snoring, Sleep Apnea, Weight Gain, Weight Loss, Weakness, Other - EENT Eyes: absent: As Per HPI, Blind Spots, Blurred Vision, Change in Vision, Decreased Night Vision, Diplopia, Discharge, Dry Eye, Exophthalmos, Floaters, Irritation, Itchy Eyes, Loss of Peripheral Vision, Pain, Photophobia, Requires Corrective Lenses, Sees Flashes, Spots in Vision, Tunnel Vision, Other Visual Disturbances, Loss of Vision, Other Ears: absent: As Per HPI, Decreased Hearing, Ear Discharge, Ear Pain, Tinnitus, Abnormal Hearing, Disequilibrium, Dizziness, Other Nose/Mouth/Throat: absent: As Per HPI, Epistaxis, Nasal Congestion, Nasal Discharge, Nasal Obstruction, Nasal Trauma, Nose Pain, Post Nasal Drip, Sinus Pain, Sinus Pressure, Bleeding Gums, Change in Voice, Dental Pain, Dry Mouth, Dysphagia, Halitosis, Hoarsness, Lip Swelling, Mouth Lesions, Mouth Pain, Odynophagia, Sore Throat, Throat Swelling, Tongue Swelling, Facial Pain, Neck Pain, Neck Mass, Other - Cardiovascular Cardiovascular: Chest Pain at Rest, Dyspnea - Respiratory Respiratory: absent: As Per HPI, Cough, Dyspnea, Hemoptysis, Dyspnea on Exertion , Wheezing, Snoring, Stridor, Pain on Inspiration, Chest Congestion, Excessive Mucous Production, Change in Mucous Color, Pain with Coughing, Other - Gastrointestinal Gastrointestinal: absent: As Per HPI, Abdominal Pain, Belching, Bloating, Change in Bowel Habits, Change in Stool Character, Coffee Ground Emesis, Constipation, Cramping, Diarrhea, Dyspepsia, Dysphagia, Early Satiety, Excessive Flatus, Fecal Incontinence, Heartburn, Hematemesis, Hematochezia, Loose Stools, Melena, Nausea, Odynophagia, Temesmus, Vomiting, Other - Genitourinary Genitourinary: absent: As Per HPI, Change in Urinary Stream, Difficulty Urinating, Dysuria, Flank Pain, Hematuria, Pyuria, Nocturia, Urinary Incontinence, Urinary Frequency, Urinary Hesitance, Urinary Urgency, Voiding Freq/Small Amts, Freq UTI, Hx Renal/Bladder Calculi, Hx /Renal Surgery, Bladder Distension, Other - Musculoskeletal Musculoskeletal: absent: As Per HPI, Abnormal Gait, Arthralgias, Atrophy, Back Pain, Deformity, Joint Swelling, Limited Range of Motion, Loss of Height, Muscle Cramps, Muscle Weakness, Myalgias, Neck Pain, Numbness, Radiating Pain into Limb, Stiffness, Tingling, Other - Integumentary Integumentary: absent: As Per HPI, Acne, Alopecia, Bleeding Lesions, Change in Hair, Change in Nails, Change in Pigmentation, Changing Lesions, Dry Skin, Erythema, Furuncle, Hirsutism, Lesions, New Lesions, Non-Healing Lesions, Photosensitivity, Pruritus, Rash, Skin Pain, Skin Ulcer, Sores, Striae, Swelling , Unusual Bruising, Wounds, Jaundice, Other - Neurological Neurological: Weakness - Psychiatric Psychiatric: absent: As Per HPI, Abnormal Sleep Pattern, Anhedonia, Anxiety, Auditory Hallucinations, Behavioral Changes, Change in Appetite, Change in Libido, Confusion, Depression, Difficulty Concentrating, Hallucinations, Homicidal Ideation, Hopelessness, Irritability, Memory Loss, Mood Swings, Panic Attacks, Paranoia, Suicidal Ideation, Visual Hallucinations, Tactile Hallucinations, Other - Endocrine Endocrine: absent: As Per HPI, Change in Body Appearance, Change in Libido, Cold Intolorance, Deepening of Voice, Excessive Sweating, Fatigue, Flushing, Heat Intolorance, Increase in Ring/Shoe/Hat Size, Palpitations, Polydipsia, Polyphagia, Polyuria, Other - Hematologic/Lymphatic Hematologic: absent: As Per HPI, Easy Bleeding, Easy Bruising, Lymphadenopathy, Other Past Patient History - Infectious Disease Hx of Infectious Diseases: None - Past Medical History & Family History Past Medical History?: Yes - Past Social History Smoking Status: Heavy Smoker > 10 Cigarettes Daily - CARDIAC Hx Atrial Fibrillation: No Hx Cardia Arrhythmia: No Hx Congestive Heart Failure: Yes Hx Hypercholesterolemia: Yes Hx Hypertension: Yes Hx Mitral Valve Prolapse: No Hx Pacemaker: No Hx Peripheral Edema: Yes - PULMONARY Hx Asthma: No Hx Bronchitis: No Hx Chronic Obstructive Pulmonary Disease (COPD): Yes Hx Emphysema: No Hx Pneumonia: No Hx Pulmonary Embolism: Yes Hx Sleep Apnea: No - NEUROLOGICAL Hx Seizures: Yes (last episode 02/2017) - HEENT Hx HEENT Problems: No - RENAL Hx Chronic Kidney Disease: No - ENDOCRINE/METABOLIC Hx Endocrine Disorders: No - HEMATOLOGICAL/ONCOLOGICAL Hx Blood Disorders: No - INTEGUMENTARY Hx Dermatological Problems: No - MUSCULOSKELETAL/RHEUMATOLOGICAL Hx Musculoskeletal Disorders: Yes Hx Falls: Yes Other/Comment: USES WHEELCHAIR AND WALKER - GASTROINTESTINAL Hx Gastritis: Yes - GENITOURINARY/GYNECOLOGICAL Hx Genitourinary Disorders: Yes Hx Incontinence: Yes Hx Urinary Tract Infection: Yes - PSYCHIATRIC Hx Substance Use: Yes - SURGICAL HISTORY Hx Surgeries: Yes Other/Comment: ivc filter - ANESTHESIA Hx Anesthesia: Yes Hx Anesthesia Reactions: No Meds Allergies/Adverse Reactions: Allergies Allergy/AdvReac Type Severity Reaction Status Date / Time No Known Allergies Allergy Verified 06/03/17 13:32 - Medications Medications: Current Medications Aspirin (Ecotrin) 81 mg PO DAILY [facility] Last Admin: 06/04/17 10:14 Dose: 81 mg Carvedilol (Coreg) 6.25 mg PO BID [facility] Last Admin: 06/04/17 17:46 Dose: 6.25 mg Ferrous Sulfate (Feosol) 325 mg PO DAILY [facility] Last Admin: 06/04/17 10:13 Dose: 325 mg Furosemide (Lasix) 20 mg PO BID [facility] Last Admin: 06/04/17 17:46 Dose: 20 mg Heparin Sodium/Sodium Chloride (Heparin 09216 Units/250ml 1/2 Normal Saline) 25 ,000 units in 250 mls @ 12.628 mls/hr IV .[id number] PRN; Protocol; 12 UNITS/KG/HR PRN Reason: PROTOCOL Last Admin: 06/04/17 10:38 Dose: 12 units/kg/hr, 12.628 mls/hr Levetiracetam (Keppra) 750 mg PO DAILY [facility] Last Admin: 06/04/17 10:14 Dose: 750 mg Rosuvastatin Calcium (Crestor) 20 mg PO HS [facility] Last Admin: 06/03/17 23:16 Dose: 20 mg Spironolactone (Aldactone) 25 mg PO DAILY [facility] Last Admin: 06/04/17 10:13 Dose: 25 mg Physical Exam - Constitutional Appears: Non-toxic - Head Exam Head Exam: NORMAL INSPECTION - Eye Exam Eye Exam: Normal appearance - ENT Exam ENT Exam: Mucous Membranes Moist - Neck Exam Neck exam: Positive for: Full Rom - Respiratory Exam Respiratory Exam: NORMAL BREATHING PATTERN - Cardiovascular Exam Cardiovascular Exam: REGULAR RHYTHM - GI/Abdominal Exam GI & Abdominal Exam: Normal Bowel Sounds - Rectal Exam Rectal Exam: Deferred - Extremities Exam Extremities exam: Negative for: pedal edema - Neurological Exam Additional comments: Left arm contracted - Psychiatric Exam Psychiatric exam: Normal Affect - Skin Skin Exam: Normal Color Results - Vital Signs Recent Vital Signs: Last Vital Signs Temp 98.6 F 06/04/17 18:00 Pulse 56 L 06/04/17 17:20 Resp 12 06/04/17 17:20 BP 134/93 H 06/04/17 17:46 Pulse Ox 99 06/04/17 17:20 - Labs Result Diagrams: 06/06/17 06:18 06/07/17 06:25 Labs: Laboratory Results - last 24 hr 06/03/17 06/04/17 06/04/17 22:58 07:26 18:48 APTT 33 Total Creatine Kinase 94 182 H CK-MB (Mass) 0.93 12.1 H Troponin I, Quant 0.1050 5.5300 H* - EKG Data EKG Interpreted by: Myself EKG shows normal: Sinus rhythm Assessment & Plan (1) Non-ST elevated myocardial infarction (non-STEMI) Assessment and Plan: continue heparin. Patient has high risk features. recommend cardiac catheterization. NPO after midnight. Status: Acute (2) CHF (congestive heart failure) Assessment and Plan: severe LV dysfunction by echocardiogram. for cardiac cath Status: Acute (3) Dyslipidemia Assessment and Plan: statin therapy Status: Acute (4) HTN (hypertension) Assessment and Plan: blood pressure control. Status: Acute
[2017-06-04] MEDS: Heparin25000 units/250ml 1/2NS 25,000 UNITS/250 ML BAG IV PRN (22:17)
--- NOTE | 2017-06-04 22:57 | CP.PCM.HP ---
History of Present Illness - History of Present Illness History of Present Illness: CC: weakness, syncope 56 year old AA male with past medical history of COPD, CHF (echo on 03/2017 EF 25 %), seizure disorder, CVA with residual left side weakness BIBA for evaluation of Right hand weakness " was dropping everything from my hand". Pt appears very drowsy at present time, admits " take pain medication". Pt took pain medication prior to onset of Right hand weakness. Otherwise, pt denies fever, chills, headache, dizziness, visual changes, N/V, neck pain, CP, SOB, dyspnea, diaphoresis, palpitation, abd. pain or any other active complaints. Patient is wheelchair bound due to his CVA PCP: Dr. Adame Edge Plugger: Dr. Verduzco Present on Admission - Present on Admission Any Indicators Present on Admission: No Review of Systems - Review of Systems Systems not reviewed;Unavailable: Acuity of Condition - Constitutional Constitutional: Lethargy, Malaise - EENT Eyes: absent: As Per HPI, Blind Spots, Blurred Vision, Change in Vision, Decreased Night Vision, Diplopia, Discharge, Dry Eye, Exophthalmos, Floaters, Irritation, Itchy Eyes, Loss of Peripheral Vision, Pain, Photophobia, Requires Corrective Lenses, Sees Flashes, Spots in Vision, Tunnel Vision, Other Visual Disturbances, Loss of Vision, Other Ears: absent: As Per HPI, Decreased Hearing, Ear Discharge, Ear Pain, Tinnitus, Abnormal Hearing, Disequilibrium, Dizziness, Other Nose/Mouth/Throat: absent: As Per HPI, Epistaxis, Nasal Congestion, Nasal Discharge, Nasal Obstruction, Nasal Trauma, Nose Pain, Post Nasal Drip, Sinus Pain, Sinus Pressure, Bleeding Gums, Change in Voice, Dental Pain, Dry Mouth, Dysphagia, Halitosis, Hoarsness, Lip Swelling, Mouth Lesions, Mouth Pain, Odynophagia, Sore Throat, Throat Swelling, Tongue Swelling, Facial Pain, Neck Pain, Neck Mass, Other - Cardiovascular Cardiovascular: Lightheadedness, Syncope - Respiratory Respiratory: absent: As Per HPI, Cough, Dyspnea, Hemoptysis, Dyspnea on Exertion , Wheezing, Snoring, Stridor, Pain on Inspiration, Chest Congestion, Excessive Mucous Production, Change in Mucous Color, Pain with Coughing, Other - Gastrointestinal Gastrointestinal: absent: As Per HPI, Abdominal Pain, Belching, Bloating, Change in Bowel Habits, Change in Stool Character, Coffee Ground Emesis, Constipation, Cramping, Diarrhea, Dyspepsia, Dysphagia, Early Satiety, Excessive Flatus, Fecal Incontinence, Heartburn, Hematemesis, Hematochezia, Loose Stools, Melena, Nausea, Odynophagia, Temesmus, Vomiting, Other - Genitourinary Genitourinary: absent: As Per HPI, Change in Urinary Stream, Difficulty Urinating, Dysuria, Flank Pain, Hematuria, Pyuria, Nocturia, Urinary Incontinence, Urinary Frequency, Urinary Hesitance, Urinary Urgency, Voiding Freq/Small Amts, Freq UTI, Hx Renal/Bladder Calculi, Hx /Renal Surgery, Bladder Distension, Other Past Patient History - Infectious Disease Hx of Infectious Diseases: None - Past Medical History & Family History Past Medical History?: Yes - Past Social History Smoking Status: Heavy Smoker > 10 Cigarettes Daily - CARDIAC Hx Atrial Fibrillation: No Hx Cardia Arrhythmia: No Hx Congestive Heart Failure: Yes Hx Hypercholesterolemia: Yes Hx Hypertension: Yes Hx Mitral Valve Prolapse: No Hx Pacemaker: No Hx Peripheral Edema: Yes - PULMONARY Hx Asthma: No Hx Bronchitis: No Hx Chronic Obstructive Pulmonary Disease (COPD): Yes Hx Emphysema: No Hx Pneumonia: No Hx Pulmonary Embolism: Yes Hx Sleep Apnea: No - NEUROLOGICAL Hx Seizures: Yes (last episode 02/2017) - HEENT Hx HEENT Problems: No - RENAL Hx Chronic Kidney Disease: No - ENDOCRINE/METABOLIC Hx Endocrine Disorders: No - HEMATOLOGICAL/ONCOLOGICAL Hx Blood Disorders: No - INTEGUMENTARY Hx Dermatological Problems: No - MUSCULOSKELETAL/RHEUMATOLOGICAL Hx Musculoskeletal Disorders: Yes Hx Falls: Yes Other/Comment: USES WHEELCHAIR AND WALKER - GASTROINTESTINAL Hx Gastritis: Yes - GENITOURINARY/GYNECOLOGICAL Hx Genitourinary Disorders: Yes Hx Incontinence: Yes Hx Urinary Tract Infection: Yes - PSYCHIATRIC Hx Substance Use: Yes - SURGICAL HISTORY Hx Surgeries: Yes Other/Comment: ivc filter - ANESTHESIA Hx Anesthesia: Yes Hx Anesthesia Reactions: No Meds Home Medications: Home Medication List Medication Instructions Recorded Confirmed Type Aspirin [Ecotrin] 81 mg PO DAILY #30 06/09/17 Rx Carvedilol [Coreg] 6.25 mg PO BID #60 tab 06/09/17 Rx Furosemide [Lasix] 20 mg PO BID #60 tab 06/09/17 Rx Rosuvastatin Calcium [Crestor] 20 mg PO HS #30 tab 06/09/17 Rx Spironolactone [Aldactone] 25 mg PO DAILY #30 tab 06/09/17 Rx levETIRAcetam [Keppra] 750 mg PO DAILY #30 tab 06/09/17 Rx Allergies/Adverse Reactions: Allergies Allergy/AdvReac Type Severity Reaction Status Date / Time No Known Allergies Allergy Verified 06/03/17 13:32 Physical Exam - Constitutional Appears: No Acute Distress - Eye Exam Eye Exam: EOMI, Normal appearance, PERRL Pupil Exam: NORMAL ACCOMODATION, PERRL - ENT Exam ENT Exam: Mucous Membranes Moist, Normal Exam - Respiratory Exam Respiratory Exam: Clear to Auscultation Bilateral, NORMAL BREATHING PATTERN - Cardiovascular Exam Cardiovascular Exam: Bradycardia, REGULAR RHYTHM Additional comments: S3 positive - GI/Abdominal Exam GI & Abdominal Exam: Normal Bowel Sounds, Soft. absent: Tenderness - Rectal Exam Rectal Exam: Deferred - Neurological Exam Neurological exam: CN II-XII Intact Additional comments: left sided weakness]\\ arousable follows command power 5/5 - Psychiatric Exam Additional comments: sleeping not cooperataive Results - Vital Signs Recent Vital Signs: Last Vital Signs Temp 98.6 F 06/04/17 20:00 Pulse 54 L 06/04/17 20:40 Resp 22 06/04/17 20:40 BP 135/95 H 06/04/17 20:29 Pulse Ox 99 06/04/17 20:40 - Labs Result Diagrams: 06/06/17 06:18 06/09/17 11:19 Labs: Laboratory Results - last 24 hr 06/03/17 06/04/17 06/04/17 22:58 07:26 18:48 APTT 33 Total Creatine Kinase 94 182 H CK-MB (Mass) 0.93 12.1 H Troponin I, Quant 0.1050 5.5300 H* 06/04/17 20:47 APTT Total Creatine Kinase 153 CK-MB (Mass) 6.68 H Troponin I, Quant 5.7100 H* Assessment & Plan (1) Non-ST elevated myocardial infarction (non-STEMI) Status: Acute (2) Elevated troponin Status: Acute (3) Hiatal hernia Status: Acute (4) Seizure disorder Status: Acute
[2017-06-05] MEDS: Heparin25000 units/250ml 1/2NS 25,000 UNITS/250 ML BAG IV PRN (05:40)
[2017-06-05 05:48] LABS: BASO # 0.1 K/uL (0.0-0.2); BASO % 0.9 % (0.0-2.0); EOS # 0.2 K/uL (0.0-0.7); EOS % 1.8 % (0.0-4.0); HEMATOCRIT 37.1 % (35.0-51.0); LYMPH # 2.4 K/uL (1.0-4.3); LYMPH % 27.8 % (20.0-40.0); MEAN CELL VOLUME 77.3 fL (80.0-94.0); MEAN CORPUSCULAR HEMOGLOBIN 24.5 pg (27.0-31.0); MEAN CORPUSCULAR HGB CONC 31.7 g/dL (33.0-37.0); MEAN PLATELET VOLUME 10.1 fL (7.2-11.7); MONO # 0.5 K/uL (0.0-0.8); MONO % 6.2 % (0.0-10.0); NRBC % 0.1 % (0.0-2.0); WHITE BLOOD COUNT 8.7 K/uL (4.8-10.8)
[2017-06-05 06:39] LABS: CHLORIDE 110 mmol/L (98-107); SODIUM 142 mmol/L (132-148)
[2017-06-05 06:41] LABS: ALB/GLOB RATIO 1.2 (1.0-2.1); ALKALINE PHOSPHATASE 46 U/L (38-126); AST/SGOT 37 U/L (17-59); BILIRUBIN,TOTAL 0.9 mg/dL (0.2-1.3); BLOOD UREA NITROGEN 10 mg/dL (9-20); CARBON DIOXIDE 22 mmol/L (22-30); GFR AFRICAN-AMERICAN > 60; GLUCOSE,RANDOM 92 mg/dL (75-110); TOTAL PROTEIN 6.7 g/dL (6.3-8.3)
[2017-06-05 06:42] LABS: ALT/SGPT 21 U/L (21-72); CALCIUM 8.6 mg/dl (8.6-10.4); MAGNESIUM 1.8 mg/dL (1.6-2.3); PHOSPHOROUS 2.4 mg/dL (2.5-4.5)
[2017-06-05] MEDS ORDERED: Midazolam 2 MG/2 ML VIAL ONE (09:20)
--- NOTE | 2017-06-05 09:57 | CP.PCM.PN ---
Subjective - Date & Time of Evaluation Date of Evaluation: 06/05/17 Time of Evaluation: 09:00 Objective - Vital Signs/Intake and Output Vital Signs (last 24 hours): Temp Pulse Resp BP Pulse Ox 98.9 F 48 L 25 H 152/100 H 99 06/05/17 08:59 06/05/17 08:00 06/05/17 08:00 06/05/17 09:00 06/05/17 08:00 Intake and Output: 06/05/17 06/05/17 06:59 18:59 Intake Total 887.2 33.2 Output Total 1050 0 Balance -162.8 33.2 - Medications Medications: Current Medications Aspirin (Ecotrin) 81 mg PO DAILY [facility] Last Admin: 06/04/17 10:14 Dose: 81 mg Carvedilol (Coreg) 6.25 mg PO BID [facility] Last Admin: 06/04/17 17:46 Dose: 6.25 mg Ferrous Sulfate (Feosol) 325 mg PO DAILY [facility] Last Admin: 06/04/17 10:13 Dose: 325 mg Furosemide (Lasix) 20 mg PO BID [facility] Last Admin: 06/04/17 17:46 Dose: 20 mg Heparin Sodium/Sodium Chloride (Heparin 25302 Units/250ml 1/2 Normal Saline) 25 ,000 units in 250 mls @ 16.56 mls/hr IV .[id number] PRN; Protocol; 16 UNITS/KG/HR PRN Reason: ADJUST RATE PER PROTOCOL Last Admin: 06/05/17 05:40 Dose: 16 units/kg/hr, 16.56 mls/hr Levetiracetam (Keppra) 750 mg PO DAILY [facility] Last Admin: 06/04/17 10:14 Dose: 750 mg Rosuvastatin Calcium (Crestor) 20 mg PO HS [facility] Last Admin: 06/04/17 22:16 Dose: 20 mg Spironolactone (Aldactone) 25 mg PO DAILY [facility] Last Admin: 06/04/17 10:13 Dose: 25 mg - Labs Labs: 06/05/17 05:43 06/05/17 06:28 PT 12.3 SECONDS (9.7-12.2) H 06/03/17 13:48 INR 1.1 06/03/17 13:48 APTT 90 SECONDS (21-34) H D 06/05/17 05:43 Assessment and Plan (1) Non-ST elevated myocardial infarction (non-STEMI) Status: Acute (2) Elevated troponin Status: Acute (3) Hiatal hernia Status: Acute (4) Seizure disorder Status: Acute
[2017-06-05] MEDS ORDERED: Iodixanol 320 MG/ML 100 ML BOTTLE IV ONE (10:10)
[2017-06-05] MEDS ORDERED: Iodixanol 320 MG/ML 200 ML BOTTLE IV ONE (10:10)
--- NOTE | 2017-06-05 11:31 | CP.CCUPN ---
<Tyrese Wise - Last Filed: 06/05/17 20:27> CCU Subjective - Physician Review Subjective (Free Text): Patient seen and examined at bedside. In no acute distress and denied all prompts on ROS. NPO for cardiac today with Dr Verduzco. 06/05/17 20:31 CCU Objective - Vital Signs / Intake & Output Vital Signs (Last 4 hours): Vital Signs Temp Pulse Resp BP Pulse Ox 06/05/17 11:00 63 18 140/98 H 06/05/17 10:45 64 18 121/71 06/05/17 10:30 63 18 157/99 H 06/05/17 10:25 64 20 159/100 H 06/05/17 09:00 152/100 H 06/05/17 08:59 98.9 F 06/05/17 08:00 48 L 25 H 99 06/05/17 07:53 52 L 15 141/89 99 Intake and Output (Last 8hrs): Intake & Output 06/04/17 06/05/17 06/05/17 22:59 06:59 14:59 Intake Total 674.5 382.8 33.2 Output Total 700 850 220 Balance -25.5 -467.2 -186.8 Weight 228 lb 2.855 oz 228 lb 2.855 oz Intake: IV 250 Intake, IV Amount 104.5 132.8 33.2 RIGHT AC #20 104.5 132.8 33.2 Oral 570 0 0 Output: Urine 700 850 220 Urine, Voided 700 850 220 Other: # Voids Urine, Voided 1 1 # Bowel Movements 0 0 0 - Physical Exam Pupils: Positive for: PERRL Extroacular Muscles: Positive for: EOMI Mouth: Positive for: Moist Mucous Membranes Respiratory/Chest: Positive for: Clear to Auscultation Cardiovascular: Positive for: Regular Rate and Rhythm, Normal S1, S2 Abdomen: Positive for: Normal Bowel Sounds. Negative for: Tenderness Neurological: Negative for: Speech Normal Skin: Positive for: Warm, Dry, Normal Color Psychiatric: Positive for: Alert, Oriented x 3 - Medications Active Medications: Active Medications Generic Name Dose Route Start Last Admin Trade Name Freq PRN Reason Stop Dose Admin Aspirin 81 mg 06/04/17 10:00 06/04/17 10:14 Ecotrin PO 81 mg DAILY KADE Administration Carvedilol 6.25 mg 06/04/17 10:00 06/05/17 11:20 Coreg PO Not Given BID KADE Ferrous Sulfate 325 mg 06/04/17 10:00 06/04/17 10:13 Feosol PO 325 mg DAILY KADE Administration Furosemide 20 mg 06/04/17 10:00 06/04/17 17:46 Lasix PO 20 mg BID KADE Administration Heparin Sodium/Sodium Chloride 25,000 units in 250 mls @ 16.56 mls/hr 21:30 06/05/17 05:40 Heparin 37708 Units/250ml 1/2 Normal Saline IV 16 units/kg/hr .Q15H6M PRN 16.56 mls/hr ADJUST RATE PER PROTOCOL Administration Protocol 16 UNITS/KG/HR Levetiracetam 750 mg 06/04/17 10:00 06/04/17 10:14 Keppra PO 750 mg DAILY KADE Administration Rosuvastatin Calcium 20 mg 06/03/17 22:15 06/04/17 22:16 Crestor PO 20 mg HS KADE Administration Spironolactone 25 mg 06/04/17 10:00 06/04/17 10:13 Aldactone PO 25 mg DAILY KADE Administration - Patient Studies Lab Studies: Lab Studies 06/05/17 06/05/17 06/05/17 Range/Units 06:28 05:43 05:43 WBC 8.7 (4.8-10.8) K/uL RBC 4.80 (4.40-5.90) Mil/uL Hgb 11.8 L (12.0-18.0) g/dL Hct 37.1 (35.0-51.0) % MCV 77.3 L (80.0-94.0) fL MCH 24.5 L (27.0-31.0) pg MCHC 31.7 L (33.0-37.0) g/dL RDW 15.0 H (11.5-14.5) % Plt Count 197 (130-400) K/uL MPV 10.1 (7.2-11.7) fL Neut % (Auto) 63.3 (50.0-75.0) % Lymph % (Auto) 27.8 (20.0-40.0) % Hood % (Auto) 6.2 (0.0-10.0) % Eos % (Auto) 1.8 (0.0-4.0) % Baso % (Auto) 0.9 (0.0-2.0) % Neut # 5.5 (1.8-7.0) K/uL Lymph # 2.4 (1.0-4.3) K/uL Hood # 0.5 (0.0-0.8) K/uL Eos # 0.2 (0.0-0.7) K/uL Baso # 0.1 (0.0-0.2) K/uL APTT 90 H D (21-34) SECONDS Sodium 142 (132-148) mmol/L Potassium 4.0 (3.6-5.2) mmol/L Chloride 110 H (98-107) mmol/L Carbon Dioxide 22 (22-30) mmol/L Anion Gap 14 (10-20) BUN 10 (9-20) mg/dL Creatinine 0.7 L (0.8-1.5) MG/DL Est GFR ( Amer) > 60 Est GFR (Non-Af Amer) > 60 Random Glucose 92 (75-110) mg/dL Calcium 8.6 (8.6-10.4) mg/dl Phosphorus 2.4 L (2.5-4.5) mg/dL Magnesium 1.8 (1.6-2.3) mg/dL Total Bilirubin 0.9 (0.2-1.3) mg/dL AST 37 (17-59) U/L ALT 21 (21-72) U/L Alkaline Phosphatase 46 (38-126) U/L Total Creatine Kinase (55-170) U/L CK-MB (Mass) (0.0-3.38) ng/mL Troponin I, Quant (0.00-0.120) ng/mL Total Protein 6.7 (6.3-8.3) g/dL Albumin 3.7 (3.5-5.0) g/dL Globulin 3.0 (2.2-3.9) gm/dL Albumin/Globulin Ratio 1.2 (1.0-2.1) 06/04/17 06/04/17 Range/Units 20:47 18:48 WBC (4.8-10.8) K/uL RBC (4.40-5.90) Mil/uL Hgb (12.0-18.0) g/dL Hct (35.0-51.0) % MCV (80.0-94.0) fL MCH (27.0-31.0) pg MCHC (33.0-37.0) g/dL RDW (11.5-14.5) % Plt Count (130-400) K/uL MPV (7.2-11.7) fL Neut % (Auto) (50.0-75.0) % Lymph % (Auto) (20.0-40.0) % Hood % (Auto) (0.0-10.0) % Eos % (Auto) (0.0-4.0) % Baso % (Auto) (0.0-2.0) % Neut # (1.8-7.0) K/uL Lymph # (1.0-4.3) K/uL Hood # (0.0-0.8) K/uL Eos # (0.0-0.7) K/uL Baso # (0.0-0.2) K/uL APTT 33 (21-34) SECONDS Sodium (132-148) mmol/L Potassium (3.6-5.2) mmol/L Chloride (98-107) mmol/L Carbon Dioxide (22-30) mmol/L Anion Gap (10-20) BUN (9-20) mg/dL Creatinine (0.8-1.5) MG/DL Est GFR ( Amer) Est GFR (Non-Af Amer) Random Glucose (75-110) mg/dL Calcium (8.6-10.4) mg/dl Phosphorus (2.5-4.5) mg/dL Magnesium (1.6-2.3) mg/dL Total Bilirubin (0.2-1.3) mg/dL AST (17-59) U/L ALT (21-72) U/L Alkaline Phosphatase (38-126) U/L Total Creatine Kinase 153 (55-170) U/L CK-MB (Mass) 6.68 H (0.0-3.38) ng/mL Troponin I, Quant 5.7100 H* (0.00-0.120) ng/mL Total Protein (6.3-8.3) g/dL Albumin (3.5-5.0) g/dL Globulin (2.2-3.9) gm/dL Albumin/Globulin Ratio (1.0-2.1) Laboratory Results - last 24 hr 06/04/17 06/04/17 06/05/17 18:48 20:47 05:43 WBC 8.7 RBC 4.80 Hgb 11.8 L Hct 37.1 MCV 77.3 L MCH 24.5 L MCHC 31.7 L RDW 15.0 H Plt Count 197 MPV 10.1 Neut % (Auto) 63.3 Lymph % (Auto) 27.8 Hood % (Auto) 6.2 Eos % (Auto) 1.8 Baso % (Auto) 0.9 Neut # 5.5 Lymph # 2.4 Hood # 0.5 Eos # 0.2 Baso # 0.1 APTT 33 Sodium Potassium Chloride Carbon Dioxide Anion Gap BUN Creatinine Est GFR ( Amer) Est GFR (Non-Af Amer) Random Glucose Calcium Phosphorus Magnesium Total Bilirubin AST ALT Alkaline Phosphatase Total Creatine Kinase 153 CK-MB (Mass) 6.68 H Troponin I, Quant 5.7100 H* Total Protein Albumin Globulin Albumin/Globulin Ratio 06/05/17 06/05/17 05:43 06:28 WBC RBC Hgb Hct MCV MCH MCHC RDW Plt Count MPV Neut % (Auto) Lymph % (Auto) Hood % (Auto) Eos % (Auto) Baso % (Auto) Neut # Lymph # Hood # Eos # Baso # APTT 90 H D Sodium 142 Potassium 4.0 Chloride 110 H Carbon Dioxide 22 Anion Gap 14 BUN 10 Creatinine 0.7 L Est GFR ( Amer) > 60 Est GFR (Non-Af Amer) > 60 Random Glucose 92 Calcium 8.6 Phosphorus 2.4 L Magnesium 1.8 Total Bilirubin 0.9 AST 37 ALT 21 Alkaline Phosphatase 46 Total Creatine Kinase CK-MB (Mass) Troponin I, Quant Total Protein 6.7 Albumin 3.7 Globulin 3.0 Albumin/Globulin Ratio 1.2 Review of Systems - Constitutional Constitutional: absent: Fever, Chills - Cardiovascular Cardiovascular: UNREMARKABLE - Respiratory Respiratory: UNREMARKABLE - Gastrointestinal Gastrointestinal: UNREMARKABLE - Genitourinary Genitourinary: UNREMARKABLE - Neurological Neurological: UNREMARKABLE Critical Care Progress Note - Nutrition Nutrition: Nutrition Category Date Time Status NPO Diet [DIET] Diets 06/05/17 Breakfast Active Assessment/Plan - Assessment and Plan (Free Text) Assessment: CV: NSTEMI; CAD; Elevated Troponins s/p cardiac cath 06/05/[address] Verduzco -> Ectactic vessels. Small subtotaled obtuse marginal. Severe LV dysfunction. Cardio, Dr Verduzco, recommends medical therapy, lifevest aspirin carvedilol 6.25mg po bid lasix 20mg po bid spiranolactone 25mg po daily Neuro: seizure d/o keppra 750mg po daily Prophylaxis: heparin 5000u sc q12 <CharleefJose M - Last Filed: 06/07/17 10:07> CCU Objective - Vital Signs / Intake & Output Vital Signs (Last 4 hours): Vital Signs Temp Pulse Resp BP 06/07/17 09:21 134/89 06/07/17 09:00 65 15 06/07/17 08:41 54 L 18 134/89 06/07/17 08:00 53 L 18 06/07/17 07:38 98.7 F 06/07/17 07:00 60 14 06/07/17 06:41 56 L 19 139/79 Intake and Output (Last 8hrs): Intake & Output 06/06/17 06/07/17 06/07/17 22:59 06:59 14:59 Intake Total 500 520 Output Total 300 380 Balance 200 140 Intake: Oral 500 520 Output: Urine 300 380 Urine, Voided 300 380 Other: # Bowel Movements 1 0 - Medications Active Medications: Active Medications Generic Name Dose Route Start Last Admin Trade Name Freq PRN Reason Stop Dose Admin Aspirin 81 mg 06/04/17 10:00 06/07/17 09:23 Ecotrin PO 81 mg DAILY KADE Administration Carvedilol 6.25 mg 06/04/17 10:00 06/07/17 09:21 Coreg PO 6.25 mg BID KADE Administration Ferrous Sulfate 325 mg 06/04/17 10:00 06/07/17 09:23 Feosol PO 325 mg DAILY KADE Administration Furosemide 20 mg 06/04/17 10:00 06/07/17 09:21 Lasix PO 20 mg BID KADE Administration Heparin Sodium (Porcine) 5,000 units 06/05/17 22:00 06/07/17 09:23 Heparin SC 5,000 units Q12 KADE Administration Heparin Sodium/Sodium Chloride 25,000 units in 250 mls @ 16.56 mls/hr 21:30 06/05/17 05:40 Heparin 62794 Units/250ml 1/2 Normal Saline IV 16 units/kg/hr .Q15H6M PRN 16.56 mls/hr ADJUST RATE PER PROTOCOL Administration Protocol 16 UNITS/KG/HR Levetiracetam 750 mg 06/04/17 10:00 06/07/17 09:22 Keppra PO 750 mg DAILY KADE Administration Rosuvastatin Calcium 20 mg 06/03/17 22:15 06/06/17 22:26 Crestor PO 20 mg HS KADE Administration Spironolactone 25 mg 06/04/17 10:00 06/07/17 09:21 Aldactone PO 25 mg DAILY KADE Administration - Patient Studies Lab Studies: Lab Studies 06/07/17 Range/Units 06:25 Sodium 142 (132-148) mmol/L Potassium 3.4 L (3.6-5.2) mmol/L Chloride 105 (98-107) mmol/L Carbon Dioxide 23 (22-30) mmol/L Anion Gap 17 (10-20) BUN 7 L (9-20) mg/dL Creatinine 0.8 (0.8-1.5) MG/DL Est GFR ( Amer) > 60 Est GFR (Non-Af Amer) > 60 Random Glucose 88 (75-110) mg/dL Calcium 9.3 (8.6-10.4) mg/dl Laboratory Results - last 24 hr 06/07/17 06:25 Sodium 142 Potassium 3.4 L Chloride 105 Carbon Dioxide 23 Anion Gap 17 BUN 7 L Creatinine 0.8 Est GFR ( Amer) > 60 Est GFR (Non-Af Amer) > 60 Random Glucose 88 Calcium 9.3 Critical Care Progress Note - Nutrition Nutrition: Nutrition Category Date Time Status Heart Healthy Diet [DIET] Diets 06/05/17 Lunch Active Attending/Attestation - Attestation I have personally seen and examined this patient.: Yes I have fully participated in the care of the patient.: Yes I have reviewed all pertinent clinical information: Yes Notes (Text): Today: May The Patient was seen and examined at the bedside, Medical records reviewed, and management issues were discussed and formulated with the house staff. Pain issues, skin care, head of the bed elevation, glycemic control were addressed. I have reviewed all the relevant clinical, laboratory, hemodynamic, radiographic data and medications Patient S/p C Cath today, Ectactic vessels. Small subtotaled obtuse marginal Severe LV dysfunction. Continue medical mangements I concur with resident's assessment and plan of care as transcribed in Dr. Wise note.
--- NOTE | 2017-06-05 12:07 | CP.PCM.PN ---
Subjective - Date & Time of Evaluation Date of Evaluation: 06/05/17 Time of Evaluation: 10:00 - Subjective Subjective: cardiac cath performed. Ectactic vessels. Small subtotaled obtuse marginal Severe LV dysfunction. Recommend medical therapy. Consider Lifevest. Objective - Vital Signs/Intake and Output Vital Signs (last 24 hours): Temp Pulse Resp BP Pulse Ox 98.9 F 63 18 140/98 H 99 06/05/17 08:59 06/05/17 11:00 06/05/17 11:00 06/05/17 11:00 06/05/17 08:00 Intake and Output: 06/05/17 06/05/17 06:59 18:59 Intake Total 887.2 33.2 Output Total 1050 220 Balance -162.8 -186.8 - Medications Medications: Current Medications Aspirin (Ecotrin) 81 mg PO DAILY [facility] Last Admin: 06/04/17 10:14 Dose: 81 mg Carvedilol (Coreg) 6.25 mg PO BID [facility] Last Admin: 06/05/17 11:20 Dose: Not Given Ferrous Sulfate (Feosol) 325 mg PO DAILY [facility] Last Admin: 06/04/17 10:13 Dose: 325 mg Furosemide (Lasix) 20 mg PO BID [facility] Last Admin: 06/04/17 17:46 Dose: 20 mg Heparin Sodium/Sodium Chloride (Heparin 36285 Units/250ml 1/2 Normal Saline) 25 ,000 units in 250 mls @ 16.56 mls/hr IV .Q15H6M PRN; Protocol; 16 UNITS/KG/HR PRN Reason: ADJUST RATE PER PROTOCOL Last Admin: 06/05/17 05:40 Dose: 16 units/kg/hr, 16.56 mls/hr Levetiracetam (Keppra) 750 mg PO DAILY [facility] Last Admin: 06/04/17 10:14 Dose: 750 mg Rosuvastatin Calcium (Crestor) 20 mg PO HS [facility] Last Admin: 06/04/17 22:16 Dose: 20 mg Spironolactone (Aldactone) 25 mg PO DAILY [facility] Last Admin: 06/04/17 10:13 Dose: 25 mg - Labs Labs: 06/05/17 05:43 06/05/17 06:28 PT 12.3 SECONDS (9.7-12.2) H 06/03/17 13:48 INR 1.1 06/03/17 13:48 APTT 90 SECONDS (21-34) H D 06/05/17 05:43
--- NOTE | 2017-06-05 12:46 | CARD ---
APPROVED REPORT EXAM: Two-dimensional and M-mode echocardiogram with Doppler and color Doppler. Other Information Quality : Technically LimitedRhythm : NSR INDICATION Dyspnea Congenital Heart Disease RISK FACTORS Hypertension Hyperlipidemia Mitral Valve MV E Wtsykfgd120.6cm/sMV A Boiscuhq22.2cm/sE/A ratio1.2 TDI E/Lateral E'0.0E/Medial E'0.0 Tricuspid Valve TR Peak Dlhymrfz843yy/sTR Peak Gr.[id number] <Conclusion> TECHNICALLY DIFFICULT STUDY. SHOWING DILATED LA AND LV. DILATED AND HYPOKINETIC APICAL AND LATERAL WALL. DIASTOLIC DYSFUNCTION , GRADE ONE. ESTIMARED EF IS ABOUT 30%. MITRAL AND TRICUSPID VALVE APPEARS NORMAL. MILD MR NOTED. DIFINITY CONTRAST STUDY IS DONE WHICH IS WNL.
--- NOTE | 2017-06-05 12:47 | CARD ---
APPROVED REPORT EKG Measurement Heart [id number] MT [id number] <Conclusion> Normal sinus rhythm Septal infarct, age undetermined Possible Inferior infarct, age undetermined ST & T wave abnormality, consider lateral ischemia Abnormal ECG
--- NOTE | 2017-06-05 13:42 | CARD ---
APPROVED REPORT EKG Measurement Heart [id number] CO [id number] [id number] <Conclusion> Sinus rhythm with sinus arrhythmia with occasional premature ventricular complexes Septal infarct, age undetermined T wave abnormality, consider anterolateral ischemia Abnormal ECG
[2017-06-06 06:35] LABS: BASO % 0.5 % (0.0-2.0); EOS # 0.1 K/uL (0.0-0.7); HEMATOCRIT 39.8 % (35.0-51.0); LYMPH # 2.2 K/uL (1.0-4.3); LYMPH % 25.8 % (20.0-40.0); MEAN CORPUSCULAR HEMOGLOBIN 24.7 pg (27.0-31.0); MEAN CORPUSCULAR HGB CONC 32.1 g/dL (33.0-37.0); MEAN PLATELET VOLUME 9.4 fL (7.2-11.7); MONO # 0.6 K/uL (0.0-0.8); MONO % 7.1 % (0.0-10.0); NRBC % 0.2 % (0.0-2.0); RED CELL DISTRIBUTION WIDTH 14.8 % (11.5-14.5); WHITE BLOOD COUNT 8.7 K/uL (4.8-10.8)
[2017-06-06 06:43] LABS: CHLORIDE 104 mmol/L (98-107); SODIUM 139 mmol/L (132-148)
[2017-06-06 06:44] LABS: POTASSIUM 3.4 mmol/L (3.6-5.2)
[2017-06-06 06:45] LABS: GFR AFRICAN-AMERICAN > 60
[2017-06-06 06:46] LABS: ALB/GLOB RATIO 1.4 (1.0-2.1); ALKALINE PHOSPHATASE 53 U/L (38-126); ALT/SGPT 20 U/L (21-72); AST/SGOT 22 U/L (17-59); BILIRUBIN,TOTAL 0.9 mg/dL (0.2-1.3); BLOOD UREA NITROGEN 6 mg/dL (9-20); CARBON DIOXIDE 24 mmol/L (22-30); GLUCOSE,RANDOM 87 mg/dL (75-110); PHOSPHOROUS 2.9 mg/dL (2.5-4.5); TOTAL PROTEIN 6.4 g/dL (6.3-8.3)
[2017-06-06 06:47] LABS: MAGNESIUM 1.7 mg/dL (1.6-2.3)
--- NOTE | 2017-06-06 08:13 | CP.PCM.PN ---
Subjective - Date & Time of Evaluation Date of Evaluation: 06/06/17 Time of Evaluation: 08:00 - Subjective Subjective: patient has no current chest pain or dyspnea. s/p cardaic cath. Patient has severe LV dysfunction (EF 20-25%. Objective - Vital Signs/Intake and Output Vital Signs (last 24 hours): Temp Pulse Resp BP Pulse Ox 98.8 F 64 17 145/75 100 06/06/17 07:25 06/06/17 08:00 06/06/17 08:00 06/06/17 07:48 06/06/17 07:25 Intake and Output: 06/06/17 06/06/17 06:59 18:59 Intake Total 150 Output Total 700 Balance -550 - Medications Medications: Current Medications Aspirin (Ecotrin) 81 mg PO DAILY [facility] Last Admin: 06/05/17 14:08 Dose: 81 mg Carvedilol (Coreg) 6.25 mg PO BID [facility] Last Admin: 06/05/17 18:27 Dose: 6.25 mg Ferrous Sulfate (Feosol) 325 mg PO DAILY [facility] Last Admin: 06/05/17 10:00 Dose: Not Given Furosemide (Lasix) 20 mg PO BID [facility] Last Admin: 06/05/17 18:27 Dose: 20 mg Heparin Sodium (Porcine) (Heparin) 5,000 units SC Q12 [facility] Last Admin: 06/05/17 21:40 Dose: 5,000 units Heparin Sodium/Sodium Chloride (Heparin 41453 Units/250ml 1/2 Normal Saline) 25 ,000 units in 250 mls @ 16.56 mls/hr IV .Q15H6M PRN; Protocol; 16 UNITS/KG/HR PRN Reason: ADJUST RATE PER PROTOCOL Last Admin: 06/05/17 05:40 Dose: 16 units/kg/hr, 16.56 mls/hr Levetiracetam (Keppra) 750 mg PO DAILY [facility] Last Admin: 06/05/17 14:09 Dose: 750 mg Rosuvastatin Calcium (Crestor) 20 mg PO HS [facility] Last Admin: 06/05/17 21:41 Dose: 20 mg Spironolactone (Aldactone) 25 mg PO DAILY [facility] Last Admin: 06/05/17 10:00 Dose: Not Given - Labs Labs: 06/06/17 06:18 06/06/17 06:16 PT 12.3 SECONDS (9.7-12.2) H 06/03/17 13:48 INR 1.1 06/03/17 13:48 APTT 90 SECONDS (21-34) H D 06/05/17 05:43 - Constitutional Appears: Non-toxic - Head Exam Head Exam: NORMAL INSPECTION - Eye Exam Eye Exam: Normal appearance - ENT Exam ENT Exam: Mucous Membranes Moist - Neck Exam Neck Exam: Full ROM - Respiratory Exam Respiratory Exam: Decreased Breath Sounds - Cardiovascular Exam Cardiovascular Exam: REGULAR RHYTHM - GI/Abdominal Exam GI & Abdominal Exam: Normal Bowel Sounds - Rectal Exam Rectal Exam: Deferred - Extremities Exam Extremities Exam: absent: Pedal Edema - Back Exam Back Exam: NORMAL INSPECTION - Neurological Exam Neurological Exam: Alert - Psychiatric Exam Psychiatric exam: Normal Affect - Skin Skin Exam: Normal Color Assessment and Plan (1) Non-ST elevated myocardial infarction (non-STEMI) Assessment & Plan: Patient is s/p cardeiac cah. has ectatic vessels with small vessle branch stenosis. recommend aggressive medical therapy. Status: Acute (2) CHF exacerbation Assessment & Plan: acute on chronic. echocarduiogram in [place] revealed EF 35%. will optimize medically, plan for Lifevest with reevaluation in 3 months. If systolic function remains <35%, recommend AICD. Status: Acute (3) Dyslipidemia Status: Acute (4) HTN (hypertension) Assessment & Plan: medical therapy Status: Acute
[2017-06-06] MEDS ORDERED: Potassium Chloride 20 mEq/15 ml LIQ UD PO ONE (09:06)
--- NOTE | 2017-06-06 19:04 | CP.PCM.PN ---
Subjective - Date & Time of Evaluation Date of Evaluation: 06/06/17 Objective - Vital Signs/Intake and Output Vital Signs (last 24 hours): Temp Pulse Resp BP Pulse Ox 98.7 F 63 18 137/98 H 100 06/06/17 16:00 06/06/17 18:00 06/06/17 18:00 06/06/17 17:30 06/06/17 16:00 - Medications Medications: Current Medications Aspirin (Ecotrin) 81 mg PO DAILY [facility] Last Admin: 06/06/17 09:54 Dose: 81 mg Carvedilol (Coreg) 6.25 mg PO BID [facility] Last Admin: 06/06/17 17:25 Dose: 6.25 mg Ferrous Sulfate (Feosol) 325 mg PO DAILY [facility] Last Admin: 06/06/17 09:55 Dose: 325 mg Furosemide (Lasix) 20 mg PO BID [facility] Last Admin: 06/06/17 17:25 Dose: 20 mg Heparin Sodium (Porcine) (Heparin) 5,000 units SC Q12 [facility] Last Admin: 06/06/17 09:54 Dose: 5,000 units Heparin Sodium/Sodium Chloride (Heparin 26305 Units/250ml 1/2 Normal Saline) 25 ,000 units in 250 mls @ 16.56 mls/hr IV .Q15H6M PRN; Protocol; 16 UNITS/KG/HR PRN Reason: ADJUST RATE PER PROTOCOL Last Admin: 06/05/17 05:40 Dose: 16 units/kg/hr, 16.56 mls/hr Levetiracetam (Keppra) 750 mg PO DAILY [facility] Last Admin: 06/06/17 09:59 Dose: 750 mg Rosuvastatin Calcium (Crestor) 20 mg PO HS [facility] Last Admin: 06/05/17 21:41 Dose: 20 mg Spironolactone (Aldactone) 25 mg PO DAILY [facility] Last Admin: 06/06/17 09:55 Dose: 25 mg - Labs Labs: 06/06/17 06:18 06/06/17 06:16 PT 12.3 SECONDS (9.7-12.2) H 06/03/17 13:48 INR 1.1 06/03/17 13:48 APTT 90 SECONDS (21-34) H D 06/05/17 05:43 Assessment and Plan (1) Non-ST elevated myocardial infarction (non-STEMI) Status: Acute (2) Elevated troponin Status: Acute (3) Hiatal hernia Status: Acute (4) Seizure disorder Status: Acute
[2017-06-07 06:43] LABS: BLOOD UREA NITROGEN 7 mg/dL (9-20); CALCIUM 9.3 mg/dl (8.6-10.4); CARBON DIOXIDE 23 mmol/L (22-30); CHLORIDE 105 mmol/L (98-107); GFR AFRICAN-AMERICAN > 60; GLUCOSE,RANDOM 88 mg/dL (75-110); POTASSIUM 3.4 mmol/L (3.6-5.2); SODIUM 142 mmol/L (132-148)
--- NOTE | 2017-06-07 09:59 | CP.PCM.PN ---
Subjective - Date & Time of Evaluation Date of Evaluation: 06/07/17 Time of Evaluation: 11:30 - Subjective Subjective: patient denies chest pain. s.p Lifevest placement Objective - Vital Signs/Intake and Output Vital Signs (last 24 hours): Temp Pulse Resp BP Pulse Ox 98.7 F 65 15 134/89 98 06/07/17 07:38 06/07/17 09:00 06/07/17 09:00 06/07/17 09:21 06/07/17 04:00 Intake and Output: 06/07/17 06/07/17 06:59 18:59 Intake Total 520 Output Total 380 Balance 140 - Medications Medications: Current Medications Aspirin (Ecotrin) 81 mg PO DAILY [facility] Last Admin: 06/07/17 09:23 Dose: 81 mg Carvedilol (Coreg) 6.25 mg PO BID [facility] Last Admin: 06/07/17 09:21 Dose: 6.25 mg Ferrous Sulfate (Feosol) 325 mg PO DAILY [facility] Last Admin: 06/07/17 09:23 Dose: 325 mg Furosemide (Lasix) 20 mg PO BID [facility] Last Admin: 06/07/17 09:21 Dose: 20 mg Heparin Sodium (Porcine) (Heparin) 5,000 units SC Q12 [facility] Last Admin: 06/07/17 09:23 Dose: 5,000 units Heparin Sodium/Sodium Chloride (Heparin 82469 Units/250ml 1/2 Normal Saline) 25 ,000 units in 250 mls @ 16.56 mls/hr IV .Q15H6M PRN; Protocol; 16 UNITS/KG/HR PRN Reason: ADJUST RATE PER PROTOCOL Last Admin: 06/05/17 05:40 Dose: 16 units/kg/hr, 16.56 mls/hr Levetiracetam (Keppra) 750 mg PO DAILY [facility] Last Admin: 06/07/17 09:22 Dose: 750 mg Rosuvastatin Calcium (Crestor) 20 mg PO HS [facility] Last Admin: 06/06/17 22:26 Dose: 20 mg Spironolactone (Aldactone) 25 mg PO DAILY [facility] Last Admin: 06/07/17 09:21 Dose: 25 mg - Labs Labs: 06/06/17 06:18 06/07/17 06:25 PT 12.3 SECONDS (9.7-12.2) H 06/03/17 13:48 INR 1.1 06/03/17 13:48 APTT 90 SECONDS (21-34) H D 06/05/17 05:43 - Constitutional Appears: Non-toxic - Head Exam Head Exam: NORMAL INSPECTION - Eye Exam Eye Exam: Normal appearance - ENT Exam ENT Exam: Mucous Membranes Moist - Neck Exam Neck Exam: Full ROM - Respiratory Exam Respiratory Exam: Decreased Breath Sounds - Cardiovascular Exam Cardiovascular Exam: REGULAR RHYTHM - GI/Abdominal Exam GI & Abdominal Exam: Normal Bowel Sounds - Rectal Exam Rectal Exam: Deferred - Extremities Exam Extremities Exam: absent: Pedal Edema - Back Exam Back Exam: NORMAL INSPECTION - Neurological Exam Neurological Exam: Alert - Psychiatric Exam Psychiatric exam: Normal Affect - Skin Skin Exam: Normal Color Assessment and Plan (1) Non-ST elevated myocardial infarction (non-STEMI) Assessment & Plan: cardiac cath performed. medical therapy Status: Acute (2) CHF exacerbation Assessment & Plan: severe LV dysfunction. will continue Lifevest, medical stabilization. repeat echocardiogram in 3 months and if EF <35%, will need AICD. Status: Acute (3) Dyslipidemia Assessment & Plan: statin therapy Status: Acute (4) HTN (hypertension) Assessment & Plan: blood pressure control Status: Acute
--- NOTE | 2017-06-07 22:55 | CP.PCM.PN ---
Subjective - Date & Time of Evaluation Date of Evaluation: 06/07/17 Time of Evaluation: 18:00 Objective - Vital Signs/Intake and Output Vital Signs (last 24 hours): Temp Pulse Resp BP Pulse Ox 98.6 F 64 20 133/72 98 06/07/17 22:00 06/07/17 22:00 06/07/17 22:00 06/07/17 22:00 06/07/17 22:00 Intake and Output: 06/07/17 06/08/17 18:59 06:59 Output Total 150 Balance -150 - Medications Medications: Current Medications Aspirin (Ecotrin) 81 mg PO DAILY [facility] Last Admin: 06/07/17 09:23 Dose: 81 mg Carvedilol (Coreg) 6.25 mg PO BID [facility] Last Admin: 06/07/17 17:26 Dose: 6.25 mg Ferrous Sulfate (Feosol) 325 mg PO DAILY [facility] Last Admin: 06/07/17 09:23 Dose: 325 mg Furosemide (Lasix) 20 mg PO BID [facility] Last Admin: 06/07/17 17:24 Dose: 20 mg Heparin Sodium (Porcine) (Heparin) 5,000 units SC Q12 [facility] Last Admin: 06/07/17 21:11 Dose: 5,000 units Levetiracetam (Keppra) 750 mg PO DAILY [facility] Last Admin: 06/07/17 09:22 Dose: 750 mg Rosuvastatin Calcium (Crestor) 20 mg PO HS [facility] Last Admin: 06/07/17 21:11 Dose: 20 mg Spironolactone (Aldactone) 25 mg PO DAILY [facility] Last Admin: 06/07/17 09:21 Dose: 25 mg - Labs Labs: 06/06/17 06:18 06/07/17 06:25 PT 12.3 SECONDS (9.7-12.2) H 06/03/17 13:48 INR 1.1 06/03/17 13:48 APTT 90 SECONDS (21-34) H D 06/05/17 05:43 Assessment and Plan (1) Non-ST elevated myocardial infarction (non-STEMI) Status: Acute (2) Elevated troponin Status: Acute (3) Hiatal hernia Status: Acute (4) Seizure disorder Status: Acute
[2017-06-08 09:35] LABS: CHOLESTEROL 128 mg/dL (0-199)
[2017-06-08] MEDS: Potassium Chloride 20 mEq ER Tab PO SCH ×2 (14:15→18:11)
--- NOTE | 2017-06-08 22:34 | CP.PCM.PN ---
Subjective - Date & Time of Evaluation Date of Evaluation: 06/08/17 Objective - Vital Signs/Intake and Output Vital Signs (last 24 hours): Temp Pulse Resp BP Pulse Ox 98.8 F 64 20 114/69 96 06/08/17 16:00 06/08/17 16:00 06/08/17 16:00 06/08/17 18:10 06/08/17 16:00 Intake and Output: 06/08/17 06/09/17 18:59 06:59 Intake Total 480 Output Total 150 Balance 330 - Medications Medications: Current Medications Aspirin (Ecotrin) 81 mg PO DAILY [facility] Last Admin: 06/08/17 11:39 Dose: 81 mg Carvedilol (Coreg) 6.25 mg PO BID [facility] Last Admin: 06/08/17 18:11 Dose: 6.25 mg Ferrous Sulfate (Feosol) 325 mg PO DAILY [facility] Last Admin: 06/08/17 11:38 Dose: 325 mg Furosemide (Lasix) 20 mg PO BID [facility] Last Admin: 06/08/17 18:10 Dose: 20 mg Levetiracetam (Keppra) 750 mg PO DAILY [facility] Last Admin: 06/08/17 11:39 Dose: 750 mg Rosuvastatin Calcium (Crestor) 20 mg PO HS [facility] Last Admin: 06/08/17 22:28 Dose: 20 mg Spironolactone (Aldactone) 25 mg PO DAILY [facility] Last Admin: 06/08/17 11:39 Dose: 25 mg - Labs Labs: 06/06/17 06:18 06/07/17 06:25 PT 12.3 SECONDS (9.7-12.2) H 06/03/17 13:48 INR 1.1 06/03/17 13:48 APTT 90 SECONDS (21-34) H D 06/05/17 05:43 Assessment and Plan (1) Non-ST elevated myocardial infarction (non-STEMI) Status: Acute (2) Elevated troponin Status: Acute (3) Hiatal hernia Status: Acute (4) Seizure disorder Status: Acute
--- NOTE | 2017-06-09 07:36 | CP.PCM.PN ---
Subjective - Date & Time of Evaluation Date of Evaluation: 06/08/17 Time of Evaluation: 13:00 - Subjective Subjective: patient has no current complaints. Objective - Vital Signs/Intake and Output Vital Signs (last 24 hours): Temp Pulse Resp BP Pulse Ox 98.5 F 71 20 133/81 97 06/08/17 23:50 06/09/17 04:00 06/08/17 23:50 06/08/17 23:50 06/08/17 23:50 Intake and Output: 06/09/17 06/09/17 06:59 18:59 Intake Total 710 Output Total 450 Balance 260 - Medications Medications: Current Medications Aspirin (Ecotrin) 81 mg PO DAILY [facility] Last Admin: 06/08/17 11:39 Dose: 81 mg Carvedilol (Coreg) 6.25 mg PO BID [facility] Last Admin: 06/08/17 18:11 Dose: 6.25 mg Ferrous Sulfate (Feosol) 325 mg PO DAILY [facility] Last Admin: 06/08/17 11:38 Dose: 325 mg Furosemide (Lasix) 20 mg PO BID [facility] Last Admin: 06/08/17 18:10 Dose: 20 mg Levetiracetam (Keppra) 750 mg PO DAILY [facility] Last Admin: 06/08/17 11:39 Dose: 750 mg Rosuvastatin Calcium (Crestor) 20 mg PO [facility] Last Admin: 06/08/17 22:28 Dose: 20 mg Spironolactone (Aldactone) 25 mg PO DAILY [facility] Last Admin: 06/08/17 11:39 Dose: 25 mg - Labs Labs: 06/06/17 06:18 06/07/17 06:25 PT 12.3 SECONDS (9.7-12.2) H 06/03/17 13:48 INR 1.1 06/03/17 13:48 APTT 90 SECONDS (21-34) H D 06/05/17 05:43 - Constitutional Appears: Non-toxic - Head Exam Head Exam: NORMAL INSPECTION - Eye Exam Eye Exam: Normal appearance - ENT Exam ENT Exam: Mucous Membranes Moist - Neck Exam Neck Exam: Full ROM - Respiratory Exam Respiratory Exam: NORMAL BREATHING PATTERN - Cardiovascular Exam Cardiovascular Exam: REGULAR RHYTHM - GI/Abdominal Exam GI & Abdominal Exam: Normal Bowel Sounds - Rectal Exam Rectal Exam: Deferred - Extremities Exam Extremities Exam: Pedal Edema - Back Exam Back Exam: NORMAL INSPECTION - Neurological Exam Neurological Exam: Alert - Psychiatric Exam Psychiatric exam: Normal Affect - Skin Skin Exam: Normal Color Assessment and Plan (1) Non-ST elevated myocardial infarction (non-STEMI) Assessment & Plan: s/p cath. medical therapy Status: Acute (2) CHF exacerbation Assessment & Plan: stable currently Status: Acute (3) Dyslipidemia Assessment & Plan: statin therapy Status: Acute (4) HTN (hypertension) Assessment & Plan: blood pressure control Status: Acute
[2017-06-09 11:45] LABS: BLOOD UREA NITROGEN 10 mg/dL (9-20); CALCIUM 9.4 mg/dl (8.6-10.4); CARBON DIOXIDE 25 mmol/L (22-30); CHLORIDE 104 mmol/L (98-107); GFR AFRICAN-AMERICAN > 60; GLUCOSE,RANDOM 148 mg/dL (75-110); POTASSIUM 3.8 mmol/L (3.6-5.2); SODIUM 142 mmol/L (132-148)
--- NOTE | 2017-06-09 14:34 | CP.PCM.PN ---
Subjective - Date & Time of Evaluation Date of Evaluation: 06/09/17 Time of Evaluation: 12:05 - Subjective Subjective: Pt seen today , awake alert, oriented, denies any chest pain, sob, palpitations , dizziness, Objective - Vital Signs/Intake and Output Vital Signs (last 24 hours): Temp Pulse Resp BP Pulse Ox 98.2 F 66 18 134/83 98 06/09/17 08:35 06/09/17 12:30 06/09/17 08:35 06/09/17 09:13 06/09/17 08:35 Intake and Output: 06/09/17 06/09/17 06:59 18:59 Intake Total 710 480 Output Total 450 Balance 260 480 - Medications Medications: Current Medications Aspirin (Ecotrin) 81 mg PO DAILY [facility] Last Admin: 06/09/17 09:14 Dose: 81 mg Carvedilol (Coreg) 6.25 mg PO BID [facility] Last Admin: 06/09/17 09:14 Dose: 6.25 mg Ferrous Sulfate (Feosol) 325 mg PO DAILY [facility] Last Admin: 06/09/17 09:14 Dose: 325 mg Furosemide (Lasix) 20 mg PO BID [facility] Last Admin: 06/09/17 09:13 Dose: 20 mg Levetiracetam (Keppra) 750 mg PO DAILY [facility] Last Admin: 06/09/17 09:13 Dose: 750 mg Rosuvastatin Calcium (Crestor) 20 mg PO HS [facility] Last Admin: 06/08/17 22:28 Dose: 20 mg Spironolactone (Aldactone) 25 mg PO DAILY [facility] Last Admin: 06/09/17 09:13 Dose: 25 mg - Labs Labs: 06/06/17 06:18 06/09/17 11:19 PT 12.3 SECONDS (9.7-12.2) H 06/03/17 13:48 INR 1.1 06/03/17 13:48 APTT 90 SECONDS (21-34) H D 06/05/17 05:43 - Constitutional Appears: Well, No Acute Distress - Respiratory Exam Respiratory Exam: Clear to Ausculation Bilateral, NORMAL BREATHING PATTERN - Cardiovascular Exam Cardiovascular Exam: REGULAR RHYTHM, +S1, +S2 - Neurological Exam Neurological Exam: Alert, Awake, Oriented x3 Assessment and Plan - Assessment and Plan (Free Text) Assessment: A/P 56 yr old male [id number] for chest pain/ NSTEMI s/p CARDIAC CATH - medical management as per Dr. Rincon ECHO- EF- 30% patient has life vest on now D/w Dr. Rincon , cleared for discharge home today from cardiology standpoint and f/u with his office in 1 -2 weeks D/W Dr. Ken, cleared for discharge home today and f/u with PMD in 1 week Discharge josef discussed with patient who understands and agrees with plan SW/CM made aware of discharge order and for proper [facility] with life vest
--- NOTE | 2017-06-09 14:35 | PCM.HF ---
Heart Failure Core Measure - Heart Failure Ejection Fraction: Less Than 40 % TRACEY Inhibitor Prescribed: No Contraindication/Reason for not providing: d/c bp running low Beta-Sonia Prescribed: Carvedilol Angiotensin II Receptor Sonia Prescribed: No Contraindication/Reason for not providing: discontinue secondary to bp running low AnticoagulationTherapy for Atrial Fibrillation/Atrialflutter: No Contraindication/Reason for not providing: no hx of afib Aldosterone Antagonist Prescribed: Yes Hydralazine Nitrate Prescribed: No Contraindication/Reason for not providing: bp running low Implantable Cardioverter Defibrillator Therapy: No Contraindication/Reason for not providing: trail of life vest / pt has life vest placed Cardiac Resynchronization Therapy Prescribed: No Contraindication/Reason for not providing: cardiac cath 06/04/17 - Follow up Will be discharged to: Home Follow Up Date (must be within 7 days from discharge): 06/13/17 Follow Up Time: 09:00
[2017-06-09 17:22] VITALS: RESP 20
--- NOTE | 2017-06-09 23:33 | CP.PCM.DIS ---
Provider - Provider Date of Admission: 06/03/17 15:40 Attending physician: Serafin Ken MD Diagnosis - Discharge Diagnosis (1) Non-ST elevated myocardial infarction (non-STEMI) Status: Acute (2) Elevated troponin Status: Acute (3) Hiatal hernia Status: Acute (4) Seizure disorder Status: Acute Hospital Course - Lab Results Lab Results: Micro Results 06/04/17 12:05 Naris MRSA Culture (Admit) - Final MRSA NOT DETECTED Most Recent Lab Values WBC 8.7 K/uL (4.8-10.8) 06/06/17 06:18 RBC 5.17 Mil/uL (4.40-5.90) 06/06/17 06:18 Hgb 12.8 g/dL (12.0-18.0) 06/06/17 06:18 Hct 39.8 % (35.0-51.0) 06/06/17 06:18 MCV 77.0 fL (80.0-94.0) L 06/06/17 06:18 MCH 24.7 pg (27.0-31.0) L 06/06/17 06:18 MCHC 32.1 g/dL (33.0-37.0) L 06/06/17 06:18 RDW 14.8 % (11.5-14.5) H 06/06/17 06:18 Plt Count 206 K/uL (130-400) 06/06/17 06:18 MPV 9.4 fL (7.2-11.7) 06/06/17 06:18 Neut % (Auto) 65.6 % (50.0-75.0) 06/06/17 06:18 Lymph % (Auto) 25.8 % (20.0-40.0) 06/06/17 06:18 [place] % (Auto) 7.1 % (0.0-10.0) 06/06/17 06:18 Eos % (Auto) 1.0 % (0.0-4.0) 06/06/17 06:18 Baso % (Auto) 0.5 % (0.0-2.0) 06/06/17 06:18 Neut # 5.7 K/uL (1.8-7.0) 06/06/17 06:18 Lymph # 2.2 K/uL (1.0-4.3) 06/06/17 06:18 [place] # 0.6 K/uL (0.0-0.8) 06/06/17 06:18 Eos # 0.1 K/uL (0.0-0.7) 06/06/17 06:18 Baso # 0.0 K/uL (0.0-0.2) 06/06/17 06:18 PT 12.3 SECONDS (9.7-12.2) H 06/03/17 13:48 INR 1.1 06/03/17 13:48 APTT 90 SECONDS (21-34) H D 06/05/17 05:43 Sodium 142 mmol/L (132-148) 06/09/17 11:19 Potassium 3.8 mmol/L (3.6-5.2) 06/09/17 11:19 Chloride 104 mmol/L (98-107) 06/09/17 11:19 Carbon Dioxide 25 mmol/L (22-30) 06/09/17 11:19 Anion Gap 18 (10-20) 06/09/17 11:19 BUN 10 mg/dL (9-20) 06/09/17 11:19 Creatinine 0.8 MG/DL (0.8-1.5) 06/09/17 11:19 Est GFR ( Amer) > 60 06/09/17 11:19 Est GFR (Non-Af Amer) > 60 06/09/17 11:19 Random Glucose 148 mg/dL (75-110) H 06/09/17 11:19 Calcium 9.4 mg/dl (8.6-10.4) 06/09/17 11:19 Phosphorus 2.9 mg/dL (2.5-4.5) 06/06/17 06:16 Magnesium 1.7 mg/dL (1.6-2.3) 06/06/17 06:16 Total Bilirubin 0.9 mg/dL (0.2-1.3) 06/06/17 06:16 AST 22 U/L (17-59) 06/06/17 06:16 ALT 20 U/L (21-72) L 06/06/17 06:16 Alkaline Phosphatase 53 U/L (38-126) 06/06/17 06:16 Total Creatine Kinase 153 U/L (55-170) 06/04/17 20:47 CK-MB (Mass) 6.68 ng/mL (0.0-3.38) H 06/04/17 20:47 Troponin I 0.1310 ng/mL (0.00-0.120) H* 06/03/17 13:48 Troponin I, Quant 5.7100 ng/mL (0.00-0.120) H* 06/04/17 20:47 NT-Pro-B Natriuret Pep 832 pg/mL (0-900) 06/03/17 13:48 Total Protein 6.4 g/dL (6.3-8.3) 06/06/17 06:16 Albumin 3.7 g/dL (3.5-5.0) 06/06/17 06:16 Globulin 2.7 gm/dL (2.2-3.9) 06/06/17 06:16 Albumin/Globulin Ratio 1.4 (1.0-2.1) 06/06/17 06:16 Triglycerides 76 mg/dL (0-149) D 06/08/17 09:03 Cholesterol 128 mg/dL (0-199) 06/08/17 09:03 LDL Cholesterol Direct 81 mg/dL (0-129) 06/08/17 09:03 HDL Cholesterol 34 mg/dL (30-70) 06/08/17 09:03 Urine Color [place] (YELLOW) 06/03/17 15:50 Urine Clarity Clear (Clear) 06/03/17 15:50 Urine pH 5.0 (5.0-8.0) 06/03/17 15:50 Ur Specific [place] 1.033 (1.003-1.030) H 06/03/17 15:50 Urine Protein 2+ mg/dL (NEGATIVE) H 06/03/17 15:50 Urine Glucose (UA) Normal mg/dL (Normal) 06/03/17 15:50 Urine Ketones Trace mg/dL (NEGATIVE) 06/03/17 15:50 Urine Blood Negative (NEGATIVE) 06/03/17 15:50 Urine Nitrate Negative (NEGATIVE) 06/03/17 15:50 Urine Bilirubin Negative (NEGATIVE) 06/03/17 15:50 Urine Urobilinogen Normal mg/dL (0.2-1.0) 06/03/17 15:50 Ur Leukocyte Esterase Neg Eli/uL (Negative) 06/03/17 15:50 Urine WBC (Auto) 1 /hpf (0-5) 06/03/17 15:50 Urine RBC (Auto) 1 /hpf (0-3) 06/03/17 15:50 Ur Squamous Epith Cells < 1 /hpf (0-5) 06/03/17 15:50 Amorphous Sediment Rare /ul (<OCC) H 06/03/17 15:50 Urine Opiates Screen Positive (NEGATIVE) 06/03/17 15:38 Urine Methadone Screen Negative (NEGATIVE) 06/03/17 15:38 Ur Barbiturates Screen Negative (NEGATIVE) 06/03/17 15:38 Ur Phencyclidine Scrn Negative (NEGATIVE) 06/03/17 15:38 Ur Amphetamines Screen Negative (NEGATIVE) 06/03/17 15:38 U Benzodiazepines Scrn Negative (NEGATIVE) 06/03/17 15:38 U Oth Cocaine Metabols Negative (NEGATIVE) 06/03/17 15:38 U Cannabinoids Screen Negative (NEGATIVE) 06/03/17 15:38 - Hospital Course Hospital Course: 56 yr old male [id number] for chest pain/ NSTEMI s/p CARDIAC CATH - medical management as per Dr. Rincon ECHO- EF- 30% patient has life vest on now D/w Dr. Rincon , cleared for discharge home today from cardiology standpoint and f/u with his office in 1 -2 weeks cleared for discharge home today and f/ u with PMD in 1 week Discharge josef discussed with patient who understands and agrees with plan SW/CM made aware of discharge order and for proper disposition to retirement with life vest Discharge Exam - Head Exam Head Exam: NORMAL INSPECTION Discharge Plan - Discharge Medications Prescriptions: Carvedilol [Coreg] 6.25 mg PO BID #60 tab Rosuvastatin Calcium [Crestor] 20 mg PO HS #30 tab Aspirin [Ecotrin] 81 mg PO DAILY #30 levETIRAcetam [Keppra] 750 mg PO DAILY #30 tab Furosemide [Lasix] 20 mg PO BID #60 tab - Follow Up Plan Condition: STABLE Disposition: HOME/ ROUTINE Instructions: Furosemide (By mouth), Aspirin (By mouth), Carvedilol (By mouth) , Levetiracetam (By mouth), Rosuvastatin (By mouth), Heart Failure (DC), How to Stop Smoking (GEN), Heart Healthy Diet (DC), Heart Catheterization (DC) Additional Instructions: Please f/u with PMD in 3-5 days Please f/u with Dr. Rincon office in 1-2 weeks - call for appointment keep life vest all times Continue medication as per Med. Rec. Referrals: Serafin Ken MD [Staff Provider] - Jose G Verduzco MD [Staff Provider] -
[2017-06-10 08:11] VITALS: PULSE 66; TEMP 98.3; O2SAT 99
[2017-06-10 10:16] VITALS: BP 149/81
--- NOTE | 2017-06-12 11:11 | CATH ---
APPROVED REPORT Procedure(s) performed: Left Heart Catheterization Left Ventriculogram Selective Right and Left Coronary Angiography HISTORY INDICATION The indication(s) include : unstable angina , non-STEMI . CASE TECHNIQUE The patient was brought electively to the Cardiac Catheterization Laboratory in a fasting state and was prepped and draped in a sterile Hydrochloride subcutaneous anesthesia. A [place] 5Fr. Sheath 10cm angiography was performed using coronary diagnostic catheters. The left coronary system was accessed and visualized with a Catheter Diagnostic 6Fr JL 5.0 catheter. The right coronary system was accessed and visualized with a JR4 catheter. The left ventricle was accessed and visualized with a Catheter Diagnostic 6Fr JL 5.0 catheter. Left ventricular/Aortic Valve gradient assessed on pullback. Left ventriculogram was performed in THAI projection. Hemostasis was obtained with manual pressure following sheath removal without any complications. Vessel Analysis The patient's coronary anatomy is right dominant. The left main coronary artery is a large size vessel without stenosis. The left main bifurcates to the left anterior descending and circumflex. The left anterior descending artery is a large size vessel . There is a 70% stenosis in the mid segment. The first diagonal branch is a medium size vessel . There is a 60% stenosis in the proximal segment. The second diagonal branch is a medium size vessel . There is a 90% stenosis in the ostial segment. The circumflex artery is a large size vessel with intimal irregularities and without significant stenosis. The right coronary artery is a large size vessel . There is a 70% stenosis in the distal segment. Left Ventricle The left ventricular ejection fraction is estimated to be 20%. There was no gradient across the aortic valve upon pullback. Conclusion Multivessel CAD. Severe LV dysfunction. Recommendations Aggressive Medical Therapy High risk for CABG or revascularization. Recommend aggressive medical therapy. Consider Lifevest to reduce risk of sudden cardiac
== END 2017-06-10 15:40 | disposition home or self-care (01) | DRG 121 ==
LOC: C.ER 13:08 → C.9E 15:40 → C.6T 17:22 → C.9I 06-04 10:58 → C.6T 06-07 21:20
PROVIDERS: ADMIT Internal Medicine; ATTEND Internal Medicine
PROC: B2151ZZ Fluoroscopy of Left Heart using Low Osmolar Contrast (ICD-10-PCS; 2017-06-05)
PROC: B2111ZZ Fluoroscopy of Multiple Coronary Arteries using Low Osmolar Contrast (ICD-10-PCS; 2017-06-05)
PROC: 4A023N7 Measurement of Cardiac Sampling and Pressure, Left Heart, Percutaneous Approach (ICD-10-PCS; principal; 2017-06-05 10:00)
DX: I21.4 Non-ST elevation (NSTEMI) myocardial infarction (principal); I11.0 Hypertensive heart disease with heart failure; I50.23 Acute on chronic systolic (congestive) heart failure; J44.9 Chronic obstructive pulmonary disease, unspecified; E78.00 Pure hypercholesterolemia, unspecified; I25.110 Atherosclerotic heart disease of native coronary artery with unstable angina pectoris; G40.909 Epilepsy, unspecified, not intractable, without status epilepticus; I49.3 Ventricular premature depolarization; K44.9 Diaphragmatic hernia without obstruction or gangrene; F17.210 Nicotine dependence, cigarettes, uncomplicated; I69.354 Hemiplegia and hemiparesis following cerebral infarction affecting left non-dominant side; Z99.3 Dependence on wheelchair

== ENCOUNTER 2017-06-27 23:05 | Inpatient (IN) | payer MEDICAID ==
[2017-06-27 23:05] VITALS: BMI 34.0
--- NOTE | 2017-06-28 01:29 | C.PDOC ---
History Of Present Illness 56 y/o M c PMHx COPD, CHF (echo on 03/2017 EF 25%), seizure disorder, CVA with residual left side weakness p/w dyspnea x 1 day associated with L leg swelling. Patient states that his CHF always causes L leg swelling more than on the R. Patient reports his symptoms are similar to his previous CHF exacerbations. Denies fever, chest pain, abdominal pain, nausea, vomiting, dizziness or headache. PCP: Dr. Adame University Dean: Dr. Verduzco Time Seen by Provider: 06/28/17 00:35 Chief Complaint (Nursing): Shortness Of Breath Past Medical History Vital Signs: Last Vital Signs Temp 98.7 F 06/28/17 00:05 Pulse 70 06/28/17 00:05 Resp 16 06/28/17 01:15 BP 143/81 06/28/17 00:05 Pulse Ox 98 06/28/17 01:29 - Medical History PMH: CHF, COPD, CVA, Deep Vein Thrombosis, Gastritis, HTN, Hypercholesterolemia , Hyperlipidemia, Peripheral Edema, Pulmonary Embolism, Seizures (last episode ) Denies: Asthma, Atrial Fibrillation, Bronchitis, Cardia Arrhythmia, Emphysema , Mitral Valve Prolapse, Pneumonia, Chronic Kidney Disease, Sleep Apnea Surgical History: Denies: Pacemaker - [facility] Procedures FLUOROSCOPY OF LEFT HEART USING LOW OSMOLAR CONTRAST (06/03/17) FLUOROSCOPY OF MULT COR ART USING L OSM CONTRAST (06/03/17) MEASURE OF CARDIAC SAMPL & PRESSURE, L HEART, PERC APPROACH (06/03/17) Family History: States: Unknown Family Hx - Social History Hx Tobacco Use: Yes Hx Alcohol Use: Yes Hx Substance Use: Yes - Immunization History Hx Tetanus Toxoid Vaccination: Yes Hx Influenza Vaccination: Yes Hx Pneumococcal Vaccination: (unk) Review Of Systems Except As Marked, All Systems Reviewed And Found Negative. Constitutional: Negative for: Fever Cardiovascular: Negative for: Chest Pain Physical Exam - Physical Exam Additional Physical Exam Comments: Appears: Non-toxic, No Acute Distress, Chronically Ill Skin: Warm, Dry Head: Atraumatic, Normacephalic Eye(s): bilateral: Normal Inspection Oral Mucosa: Moist Neck: Normal ROM Chest: Symmetrical, No Tenderness Cardiovascular: Rhythm Regular, No Murmur Respiratory: No Decreased Breath Sounds, Rales, No Wheezing Gastrointestinal/Abdominal: Normal Exam, Soft, No Tenderness, No Guarding, No Rebound Extremity: Pedal Edema (+3 edema LLE. +2 edema RLE. ), Other ((+) Left hand contracted from previous CVA. ) Pulses: Right Radial: Normal Neurological/Psych: Oriented x3, Normal Speech, Normal Sensation ED Course And Treatment - Laboratory Results Result Diagrams: 06/28/17 01:32 06/28/17 01:32 O2 Sat by Pulse Oximetry: 98 Medical Decision Making Medical Decision Making: CXR shows cardiomegaly, no florid pulmonary edema. EKG NSR 60 bpm, T wave inversions anterolaterally, no ST elevations. 1st set of enzymes negative. Dr. Adame accepts patient to his service. Disposition Discussed With : Chong Adame Doctor Will See Patient In The: Hospital - Disposition Disposition: HOSPITALIZED Disposition Time: 02:10 Condition: FAIR Forms: [facility] ([place]) - Clinical Impression Clinical Impression: CHF exacerbation
[2017-06-28 01:36] LABS: BASO # 0.1 K/uL (0.0-0.2); BASO % 1.1 % (0.0-2.0); EOS # 0.3 K/uL (0.0-0.7); EOS % 3.6 % (0.0-4.0); HEMATOCRIT 38.2 % (35.0-51.0); LYMPH # 2.6 K/uL (1.0-4.3); MEAN CELL VOLUME 76.7 fL (80.0-94.0); MEAN CORPUSCULAR HEMOGLOBIN 24.5 pg (27.0-31.0); MEAN PLATELET VOLUME 8.8 fL (7.2-11.7); MONO # 0.6 K/uL (0.0-0.8); MONO % 7.4 % (0.0-10.0); NRBC % 0.1 % (0.0-2.0); RED CELL DISTRIBUTION WIDTH 14.5 % (11.5-14.5); WHITE BLOOD COUNT 8.1 K/uL (4.8-10.8)
[2017-06-28 01:43] LABS: CHLORIDE 102 mmol/L (98-107); POTASSIUM 3.6 mmol/L (3.6-5.2); SODIUM 139 mmol/L (132-148)
[2017-06-28 01:45] LABS: GFR AFRICAN-AMERICAN > 60
[2017-06-28 01:46] LABS: ALB/GLOB RATIO 1.2 (1.0-2.1); ALKALINE PHOSPHATASE 53 U/L (38-126); ALT/SGPT 21 U/L (21-72); AST/SGOT 15 U/L (17-59); BILIRUBIN,TOTAL 0.8 mg/dL (0.2-1.3); BLOOD UREA NITROGEN 11 mg/dL (9-20); CALCIUM 9.2 mg/dl (8.6-10.4); CARBON DIOXIDE 24 mmol/L (22-30); GLUCOSE,RANDOM 82 mg/dL (75-110); TOTAL PROTEIN 7.4 g/dL (6.3-8.3)
[2017-06-28] MEDS: Enoxaparin 40 mg Syringe SC SCH (09:38)
--- NOTE | 2017-06-28 11:44 | RAD ---
HISTORY: dyspnea COMPARISON: Comparison is made to 05/12/2017 FINDINGS: LUNGS: No evidence of new infiltrate or consolidation in the lungs. Again seen is moderate elevation of the left hemidiaphragm and mildly dilated bowel in the left subdiaphragmatic region. PLEURA: No significant pleural effusion identified, no pneumothorax apparent. CARDIOVASCULAR: Normal. OSSEOUS STRUCTURES: No significant abnormalities. VISUALIZED UPPER ABDOMEN: Normal. OTHER FINDINGS: None. IMPRESSION: No evidence of significant interval change since the previous exam.
[2017-06-29] MEDS: Enoxaparin 40 mg Syringe SC SCH (11:41)
--- NOTE | 2017-06-29 16:08 | HP ---
HISTORY OF PRESENT ILLNESS: Mr. Rendon is a 56-year-old male with history of congestive heart failure and hypertension, for the last three weeks with frequent shortness of breath. The patient came to the ER, advised admission. PHYSICAL EXAMINATION: GENERAL: The patient is awake, alert, and oriented. VITAL SIGNS: Temperature 98, pulse 97. HEENT: Within normal limits. NECK: Supple. CHEST: Symmetrical. HEART: Regular. ABDOMEN: Soft. EXTREMITIES: 2+ edema. IMPRESSION: Congestive heart failure. The patient on bedrest, supportive care, diuresis. Chong Adame MD
[2017-06-29 22:06] VITALS: RESP 20
[2017-06-30 01:32] VITALS: TEMP 98; O2SAT 96
[2017-06-30 09:01] VITALS: PULSE 85
[2017-06-30] MEDS ORDERED: Sacubitril/Valsartan 24-26mg Tab PO SCH (10:00)
[2017-06-30] MEDS: Enoxaparin 40 mg Syringe SC SCH (10:43)
[2017-06-30 10:45] VITALS: BP 132/81
--- NOTE | 2017-06-30 14:00 | CP.PCM.PN ---
Subjective - Date & Time of Evaluation Date of Evaluation: 06/30/17 Time of Evaluation: 14:49 - Subjective Subjective: Pt seen and examined at bedside; states he feels much better than when he came in. States he doesn't like to take his lasix at the [facility] as there is only one bathroom and people will often skip him in line and this causes his CHF to flare up more. Denies any chest pain. Sleeping flat this morning when examined with no SOB. Objective - Vital Signs/Intake and Output Vital Signs (last 24 hours): Temp Pulse Resp BP Pulse Ox 98 F 85 20 132/81 96 06/29/17 23:50 06/30/17 07:40 06/29/17 23:50 06/30/17 10:44 06/29/17 23:50 Intake and Output: 06/30/17 06/30/17 06:59 18:59 Intake Total 310 Output Total 800 Balance -490 - Labs Labs: 06/28/17 01:32 06/28/17 01:32 - Constitutional Appears: Well - Head Exam Head Exam: ATRAUMATIC - Eye Exam Eye Exam: EOMI Pupil Exam: PERRL - ENT Exam ENT Exam: Mucous Membranes Moist - Neck Exam Neck Exam: absent: Lymphadenopathy - Respiratory Exam Respiratory Exam: Clear to Ausculation Bilateral - Cardiovascular Exam Cardiovascular Exam: REGULAR RHYTHM - GI/Abdominal Exam GI & Abdominal Exam: Soft, Normal Bowel Sounds - Extremities Exam Extremities Exam: Full ROM. absent: Calf Tenderness - Back Exam Back Exam: absent: CVA tenderness (L), CVA tenderness (R) - Neurological Exam Neurological Exam: Alert, Awake, Oriented x3 - Psychiatric Exam Psychiatric exam: Normal Affect - Skin Skin Exam: Warm Assessment and Plan - Assessment and Plan (Free Text) Assessment: CHF Exacerbation; acute on chronic -Aspirin 81mg -Lasix; SOB improved -Entresto Started; lisinopril stopped -Coreg 6.25mg BID given to patient patient is stable for d/c last echo was end of the month may EF of 30% Seizure Disorder -c/w Keppra 750mg daily Anemia; chronic -c/w ferrous sulfate Patient is stable for d/c as per Dr. Adame; patient will f/u with cardiology Congested Heart Failure - CM - Type of Heart Failure: Systolic dysfunction:: Chronic - LVF prior to this hospilization,if known LVF prior to this hospilization: Ejection Fraction less than 40% Definitive Plan: patient started on entresto; will see medical response to therapy - Ejection Fraction % Fraction %: 30 - Source Source: Echo - TRACEY or ARB TRACEY or ARB: Name/dose/frequency: entresto - Beta Sonia Beta Sonia prescribed: Name/dose/frequency: coreg - Digoxin Contraindication: Not indicated - Diuretic Diuretic Therapy (lasix, thiazides, aldactone) (he for EF less than 30%): lasix and aldactone - Nitrate Therapy Contraindication:: Not indicated - Hydralazine Hydralazine:: not indicated - Smoking Cessation Smoking Cessation Counseling: Yes - Recommendation Recommendation for ICD referral or CTR: Yes (however not at this time; has not been medically opitmized yet) - Followup Appointment Follow Up appointment: 07/07/17
--- NOTE | 2017-06-30 15:17 | PCM.HF ---
Heart Failure Core Measure - Heart Failure Ejection Fraction: Less Than 40 % RTACEY Inhibitor Prescribed: No Contraindication/Reason for not providing: arb combo Beta-Sonia Prescribed: Carvedilol Angiotensin II Receptor Sonia Prescribed: Yes AnticoagulationTherapy for Atrial Fibrillation/Atrialflutter: No Contraindication/Reason for not providing: no afib Aldosterone Antagonist Prescribed: No Contraindication/Reason for not providing: not rx by cardio--to f/u with cardio as OP Hydralazine Nitrate Prescribed: No Contraindication/Reason for not providing: not rx by cardio--to f/u with cardio as OP Implantable Cardioverter Defibrillator Therapy: No Contraindication/Reason for not providing: no aicd,not rx by cardio--to f/u with cardio as OP Cardiac Resynchronization Therapy Prescribed: No Contraindication/Reason for not providing: not rx by cardio--to f/u with cardio as OP - Follow up Will be discharged to: Home (to fdc) Follow Up Date (must be within 7 days from discharge): 07/07/17 Follow Up Time: 09:00
== END 2017-06-30 13:45 | disposition home or self-care (01) | DRG 127 ==
LOC: C.ER 23:05 → C.9E 06-28 02:36 → C.9I 06-28 07:02 → OBSVTOIN 06-29 12:21 → C.6T 06-29 19:43
PROVIDERS: ADMIT Internal Medicine Pulmonary Disease; ATTEND Internal Medicine Pulmonary Disease
DX: I11.0 Hypertensive heart disease with heart failure (principal); I69.354 Hemiplegia and hemiparesis following cerebral infarction affecting left non-dominant side; I50.43 Acute on chronic combined systolic (congestive) and diastolic (congestive) heart failure; J44.9 Chronic obstructive pulmonary disease, unspecified; G40.909 Epilepsy, unspecified, not intractable, without status epilepticus; D64.9 Anemia, unspecified; E78.00 Pure hypercholesterolemia, unspecified; F17.200 Nicotine dependence, unspecified, uncomplicated; Z79.82 Long term (current) use of aspirin; Z86.711 Personal history of pulmonary embolism

== ENCOUNTER 2017-07-04 22:04 | Inpatient (IN) | payer MEDICAID ==
[2017-07-04 22:04] VITALS: BMI 34.0
[2017-07-04 23:51] LABS: BASO % 0.5 % (0.0-2.0); EOS # 0.5 K/uL (0.0-0.7); EOS % 5.1 % (0.0-4.0); HEMATOCRIT 36.7 % (35.0-51.0); LYMPH # 3.2 K/uL (1.0-4.3); LYMPH % 34.8 % (20.0-40.0); MEAN CELL VOLUME 76.7 fL (80.0-94.0); MEAN CORPUSCULAR HEMOGLOBIN 24.9 pg (27.0-31.0); MEAN CORPUSCULAR HGB CONC 32.4 g/dL (33.0-37.0); MONO # 0.6 K/uL (0.0-0.8); MONO % 6.4 % (0.0-10.0); RED CELL DISTRIBUTION WIDTH 14.6 % (11.5-14.5); WHITE BLOOD COUNT 9.3 K/uL (4.8-10.8)
[2017-07-04 23:59] LABS: CHLORIDE 101 mmol/L (98-107); POTASSIUM 3.5 mmol/L (3.6-5.2); SODIUM 138 mmol/L (132-148)
[2017-07-05 00:01] LABS: BILIRUBIN,TOTAL 0.6 mg/dL (0.2-1.3); GFR AFRICAN-AMERICAN > 60
[2017-07-05 00:02] LABS: ALB/GLOB RATIO 1.3 (1.0-2.1); ALKALINE PHOSPHATASE 58 U/L (38-126); ALT/SGPT 22 U/L (21-72); AST/SGOT 14 U/L (17-59); BLOOD UREA NITROGEN 13 mg/dL (9-20); CALCIUM 8.7 mg/dl (8.6-10.4); CARBON DIOXIDE 24 mmol/L (22-30); GLUCOSE,RANDOM 91 mg/dL (75-110); TOTAL PROTEIN 7.3 g/dL (6.3-8.3)
[2017-07-05 00:13] LABS: INR 1.1
--- NOTE | 2017-07-05 00:32 | C.PDOC ---
History Of Present Illness Pt c/o LLE swelling. Denies injury. Time Seen by Provider: 07/04/17 23:02 Chief Complaint (Nursing): Lower Extremity Problem/Injury History Per: Patient Onset/Duration Of Symptoms: Days (about 1 week) Current Symptoms Are (Timing): Still Present Severity: Moderate Associated Symptoms: Ankle/Leg Swelling (left) Additional History Per: Prior Records Past Medical History Reviewed: Historical Data, Nursing Documentation, Vital Signs Vital Signs: Last Vital Signs Temp 97.7 F 07/04/17 22:14 Pulse 72 07/04/17 22:14 Resp 18 07/04/17 22:14 BP 151/84 H 07/04/17 22:14 Pulse Ox 95 07/04/17 22:14 - Medical History PMH: CHF, COPD, CVA, Deep Vein Thrombosis, Gastritis, HTN, Hypercholesterolemia , Hyperlipidemia, Peripheral Edema, Pulmonary Embolism, Seizures (last episode ) - [facility] Procedures FLUOROSCOPY OF LEFT HEART USING LOW OSMOLAR CONTRAST (06/03/17) FLUOROSCOPY OF MULT COR ART USING L OSM CONTRAST (06/03/17) MEASURE OF CARDIAC SAMPL & PRESSURE, L HEART, PERC APPROACH (06/03/17) Family History: States: Unknown Family Hx - Social History Hx Tobacco Use: Yes Hx Alcohol Use: Yes Hx Substance Use: No - Immunization History Hx Tetanus Toxoid Vaccination: Yes Hx Influenza Vaccination: Yes Hx Pneumococcal Vaccination: (unk) Review Of Systems Except As Marked, All Systems Reviewed And Found Negative. Constitutional: Negative for: Fever Cardiovascular: Positive for: Edema. Negative for: Chest Pain Respiratory: Negative for: Shortness of Breath, Hemoptysis Gastrointestinal: Negative for: Vomiting, Abdominal Pain Musculoskeletal: Negative for: Neck Pain, Back Pain Neurological: Negative for: Weakness, Numbness, Seizures, Altered Mental Status Physical Exam - Physical Exam Appears: No Acute Distress, Chronically Ill Skin: Normal Color, Warm, Dry Head: Atraumatic, Normacephalic Eye(s): bilateral: PERRL, EOMI Neck: Normal ROM, Supple Cardiovascular: Rhythm Regular Respiratory: Normal Breath Sounds, No Accessory Muscle Use Gastrointestinal/Abdominal: Soft, No Tenderness Extremity: Normal ROM, Pedal Edema, Swelling (Left leg) Neurological/Psych: Oriented x3, Normal Motor, Normal Sensation ED Course And Treatment - Laboratory Results Result Diagrams: 07/04/17 23:48 07/04/17 23:48 Lab Interpretation: Abnormal Interpretation Of Abnormal: D-Dimer is positive O2 Sat by Pulse Oximetry: 95 Pulse Ox Interpretation: Normal Progress Note: Venous Duplex is not available at this time to evaluate for DVT. D-Dimer is significantly elevated. I will anticoagulate pt and admit for observation in order to obtain Venous Duplex US tomorrow. Disposition Discussed With : Chong Adame Comment: He accepted pt on his service and gave admitting orders to the nurse. Doctor Will See Patient In The: Hospital Counseled Patient/Family Regarding: Studies Performed, Diagnosis - Disposition Disposition: HOSPITALIZED Disposition Time: 00:33 Condition: FAIR - Clinical Impression Clinical Impression: Swelling of left lower extremity, D-dimer, elevated
[2017-07-05] MEDS ORDERED: Enoxaparin 80 mg Syringe SC STA (00:34)
[2017-07-05] MEDS ORDERED: Enoxaparin 40 mg Syringe ONE (00:51)
[2017-07-05] MEDS ORDERED: Enoxaparin 60 mg Syringe ONE (00:52)
[2017-07-05] MEDS: Sacubitril/Valsartan 24-26mg Tab PO SCH ×2 (10:45→18:44)
[2017-07-05] MEDS: Enoxaparin 100 mg Syringe SC SCH (10:48)
[2017-07-06] MEDS: Enoxaparin 100 mg Syringe SC SCH (09:42)
[2017-07-06] MEDS: Sacubitril/Valsartan 24-26mg Tab PO SCH ×2 (09:42→19:00)
[2017-07-06] MEDS ORDERED: Influenza Vaccine 60 mcg/0.5 mL SYR (4YR UP) IM ONE (14:00)
--- NOTE | 2017-07-07 09:35 | CP.PCM.PN ---
Subjective - Date & Time of Evaluation Date of Evaluation: 07/07/17 Time of Evaluation: 11:51 - Subjective Subjective: patient seen and examined at bedside this AM; needs to have b/l duplex done; if it is normal he is able to go home and does not need any prescriptions because he got them all last week. If he does have a DVT in his lower extremity, we can start Eliquis 5mg PO BID. Objective - Vital Signs/Intake and Output Vital Signs (last 24 hours): Temp Pulse Resp BP Pulse Ox 98.5 F 60 18 151/87 H 99 07/07/17 07:20 07/07/17 07:20 07/07/17 07:20 07/07/17 07:20 07/07/17 07:20 Intake and Output: 07/07/17 07/07/17 06:59 18:59 Intake Total 500 Output Total 1400 Balance -900 - Medications Medications: Current Medications Carvedilol (Coreg) 12.5 mg PO BID [facility] Last Admin: 07/06/17 22:27 Dose: 12.5 mg Clotrimazole (Lotrimin 1%) 1 gm TOP BID [facility] Enoxaparin Sodium (Lovenox) 90 mg SC DAILY [facility] Last Admin: 07/06/17 09:42 Dose: 90 mg Furosemide (Lasix) 40 mg IVP DAILY [facility] Last Admin: 07/06/17 09:41 Dose: 40 mg Hydrochlorothiazide (Hydrodiuril) 25 mg PO DAILY [facility] Last Admin: 07/06/17 09:41 Dose: 25 mg Levetiracetam (Keppra) 750 mg PO DAILY [facility] Last Admin: 07/06/17 09:40 Dose: 750 mg Lisinopril (Zestril) 5 mg PO DAILY [facility] Last Admin: 07/06/17 09:42 Dose: 5 mg Rosuvastatin Calcium (Crestor) 20 mg PO HS [facility] Last Admin: 07/06/17 22:24 Dose: 20 mg Sacubitril/Valsartan (Entresto 24 Mg-26 Mg) 1 tab PO BID [facility] Last Admin: 07/06/17 19:00 Dose: 1 tab - Labs Labs: 07/04/17 23:48 07/04/17 23:48 PT 12.3 SECONDS (9.7-12.2) H 07/04/17 23:48 INR 1.1 07/04/17 23:48 APTT 30 SECONDS (21-34) 07/04/17 23:48 - Constitutional Appears: Non-toxic - Head Exam Head Exam: ATRAUMATIC - Eye Exam Eye Exam: EOMI - ENT Exam ENT Exam: Mucous Membranes Moist - Neck Exam Neck Exam: Full ROM - Respiratory Exam Respiratory Exam: Clear to Ausculation Bilateral - Cardiovascular Exam Cardiovascular Exam: REGULAR RHYTHM - GI/Abdominal Exam GI & Abdominal Exam: Soft - Extremities Exam Extremities Exam: Pedal Edema. absent: Calf Tenderness - Back Exam Back Exam: absent: CVA tenderness (L), CVA tenderness (R) - Neurological Exam Neurological Exam: Alert, Awake, Oriented x3 - Skin Skin Exam: Warm Assessment and Plan - Assessment and Plan (Free Text) Assessment: 56yo M admitted for CHF exacerbation; acute on chronic CHF Exacerbation Acute on Chronic -BNP 1999 from 3500 last week -c/w Asprin 81mg daily -increase carvedilol 12.5 BID; will increase tomorrow -c/w entresto -Hctz -Lasix Elevated D-Dimer -f/u b/l lower extremity US; if negative patient can go home as per Dr. Adame -if positive will start Eliquis 5mg BID; and patient can go home -on therapeutic lovenox, 90mg BID HTN -c/w blood pressure medicines as above HLD -c/w crestor History of Seizures -c/w Keppra Anemia;chronic stable -monitor H/H Proph -therapetuic lovenox -heart healthy diet -PT/OT Eval and treat If patient has negative duplex study stable to go home with no prescriptions If patient has positive duplex study, patient will need eliquis 5mg PO BID as per Dr. Adame
[2017-07-07] MEDS ORDERED: Clotrimazole 1% Cream(30 gm) TOP SCH (10:00)
--- NOTE | 2017-07-07 10:05 | PN ---
DATE: 07/06/2017 SUBJECTIVE: The patient supportive care, diuresis, continue treatment. Chong Adame MD
[2017-07-07] MEDS: Sacubitril/Valsartan 24-26mg Tab PO SCH (10:50)
[2017-07-07] MEDS: Enoxaparin 100 mg Syringe SC SCH (10:51)
--- NOTE | 2017-07-07 15:31 | VASCLAB ---
PROCEDURE: Left Lower Extremity Venous Duplex Exam. HISTORY: high D DIMER LEVEL PRIORS: None. TECHNIQUE: Left common femoral, femoral, popliteal and posterior tibial, peroneal and great saphenous veins were evaluated. Flow was assessed with color Doppler, compressibility, assessment of phasic flow and augmentation response. Report prepared by BOBBY Kinsey, RVT FINDINGS: LEFT: 1. Common Femoral Vein: 1.1. Compressibility - Fully compressible: Thrombus - None : Flow - Phasic: Augmentation -Normal: Reflux - None. 2. Femoral Vein: 2.1. Compressibility - Fully compressible: Thrombus - None: Flow - Phasic: Augmentation -Normal: Reflux - None. 3. Popliteal Vein: 3.1. Compressibility - Fully compressible: Thrombus - None: Flow - Phasic: Augmentation -Normal: Reflux - Severe. 4. Posterior Tibial Vein: 4.1. Compressibility - Fully compressible: Thrombus - None: Flow - Phasic: Augmentation -Normal: Reflux - None. 5. Peroneal Vein: 5.1. Compressibility - Fully compressible: Thrombus - None: Flow - Phasic: Augmentation -Normal: Reflux - None. 6. Great Saphenous Vein: 6.1. Compressibility - Fully compressible: Thrombus - None: Flow - Phasic: Augmentation - Normal: Reflux - None. OTHER FINDINGS: Severe valvular incompetence of the left popliteal vein. IMPRESSION: No evidence of deep or superficial vein thrombosis of the left lower extremity with excellent venous flow. Normal venous flow noted in the right common femoral vein.
[2017-07-07 16:53] VITALS: BP 116/75; PULSE 63; RESP 20; TEMP 98.3; O2SAT 96
[2017-07-07] MEDS ORDERED: Enoxaparin 100 mg Syringe SC SCH (22:00)
== END 2017-07-07 17:31 | disposition home or self-care (01) | DRG 127 ==
LOC: C.ER 22:04 → SUPCPDRO 22:04 → C.9E 07-05 00:35 → OBSVTOIN 07-05 00:35 → C.6T 07-05 01:15
PROVIDERS: ADMIT Internal Medicine Pulmonary Disease; ATTEND Internal Medicine Pulmonary Disease
DX: I11.0 Hypertensive heart disease with heart failure (principal); I50.9 Heart failure, unspecified; R79.1 Abnormal coagulation profile; J44.9 Chronic obstructive pulmonary disease, unspecified; D64.9 Anemia, unspecified; E78.5 Hyperlipidemia, unspecified; K21.9 Gastro-esophageal reflux disease without esophagitis; Z86.711 Personal history of pulmonary embolism

== ENCOUNTER 2017-07-21 08:26 | Emergency (ER) | payer MEDICAID ==
[2017-07-21 08:26] VITALS: BMI 34.0
[2017-07-21 08:42] VITALS: BP 156/85; PULSE 80; RESP 20; TEMP 97.9; O2SAT 95
--- NOTE | 2017-07-21 09:04 | C.PDOC ---
History Of Present Illness 57 year old male with a history of CHF and periodic leg swelling presents to the ED with complaints of recurrent left leg swelling for several days. Patient was discharged on 07/06/2017 and had a DVT study performed that was negative. He admits to eating food with a lot of sodium and does not take his medications. Patient denies chest pain, shortness of breath, fever, or chills. Time Seen by Provider: 07/21/17 08:47 Chief Complaint (Nursing): Lower Extremity Problem/Injury History Per: Patient History/Exam Limitations: no limitations Onset/Duration Of Symptoms: Days ("several days"), Intermittent Episodes Current Symptoms Are (Timing): Still Present Recent travel outside of the [place]: No Additional History Per: Prior Records Past Medical History Reviewed: Historical Data, Nursing Documentation, Vital Signs Vital Signs: Last Vital Signs Temp 97.9 F 07/21/17 08:35 Pulse 80 07/21/17 08:35 Resp 20 07/21/17 09:02 BP 156/85 H 07/21/17 08:35 Pulse Ox 95 07/21/17 09:04 - Medical History PMH: CHF, COPD, CVA, Deep Vein Thrombosis, Gastritis, HTN, Hypercholesterolemia , Hyperlipidemia, Peripheral Edema, Pulmonary Embolism, Seizures (last episode "2 months ago") Surgical History: Denies: Pacemaker - [facility] Procedures FLUOROSCOPY OF LEFT HEART USING LOW OSMOLAR CONTRAST (06/03/17) FLUOROSCOPY OF MULT COR ART USING L OSM CONTRAST (06/03/17) MEASURE OF CARDIAC SAMPL & PRESSURE, L HEART, PERC APPROACH (06/03/17) Family History: States: Unknown Family Hx - Social History Hx Tobacco Use: Yes Hx Alcohol Use: No Hx Substance Use: No - Immunization History Hx Tetanus Toxoid Vaccination: Yes Hx Influenza Vaccination: Yes Hx Pneumococcal Vaccination: (unk) Review Of Systems Constitutional: Negative for: Fever, Chills Cardiovascular: Negative for: Chest Pain Respiratory: Negative for: Shortness of Breath Musculoskeletal: Negative for: Leg Pain Skin: Positive for: Other (left leg swelling ) Neurological: Negative for: Weakness, Numbness Physical Exam - Physical Exam Appears: Non-toxic, No Acute Distress Skin: Warm, Dry, No Rash Head: Atraumatic, Normacephalic Eye(s): bilateral: Normal Inspection, PERRL, EOMI Oral Mucosa: Moist Neck: Supple Cardiovascular: Rhythm Regular, No Murmur Respiratory: No Rales, No Rhonchi, No Wheezing, Other (clear to auscultation bilaterally ) Gastrointestinal/Abdominal: Soft, No Tenderness, No Distention, No Guarding, No Rebound Extremity: Normal ROM, No Tenderness, No Calf Tenderness, Capillary Refill ( good capillary refill, less than two seconds ), No Deformity, Other (bilateral 2 + pitting edema in lower extremities ) Pulses: Left Dorsalis Pedis: Normal, Right Dorsalis Pedis: Normal Neurological/Psych: Oriented x3 ED Course And Treatment O2 Sat by Pulse Oximetry: 95 (RA) Progress Note: Patient was offered medications and refused. Patient was offered DVT study and refused. Patient would like to be discharged home. Disposition Counseled Patient/Family Regarding: Diagnosis, Need For Followup - Disposition Referrals: Chong Adame MD [Staff Provider] - Disposition: HOME/ ROUTINE Disposition Time: 09:03 Condition: GOOD Instructions: Leg Edema (ED) Forms: [facility] (Hebrew) - Clinical Impression Clinical Impression: Leg edema, Noncompliance with medication regimen - Scribe Statement The provider has reviewed the documentation as recorded by the Scribe Niesha Wilson All medical record entries made by the Scribe were at my direction and personally dictated by me. I have reviewed the chart and agree that the record accurately reflects my personal performance of the history, physical exam, medical decision making, and the department course for this patient. I have also personally directed, reviewed, and agree with the discharge instructions and disposition.
== END 2017-07-21 10:03 | disposition home or self-care (01) ==
LOC: C.ER 08:26
DX: R60.0 Localized edema (principal); Z91.14 Patient's other noncompliance with medication regimen

== ENCOUNTER 2017-08-06 08:01 | Emergency (ER) | payer MEDICAID ==
[2017-08-06 08:01] VITALS: BMI 32.3
[2017-08-06 08:08] VITALS: BP 157/94; PULSE 75; RESP 20; TEMP 97.9; O2SAT 98
--- NOTE | 2017-08-06 08:59 | C.PDOC ---
Time Seen by Provider: 08/06/17 08:09 Chief Complaint (Nursing): Med Refill Past Medical History Vital Signs: Last Vital Signs Temp 97.9 F 08/06/17 08:07 Pulse 75 08/06/17 08:07 Resp 20 08/06/17 08:07 BP 157/94 H 08/06/17 08:07 Pulse Ox 98 08/06/17 08:07 - Medical History PMH: Atrial Fibrillation, CHF, COPD, CVA, Deep Vein Thrombosis, Gastritis, HTN, Hypercholesterolemia, Hyperlipidemia, Peripheral Edema, Pulmonary Embolism, Seizures (last episode 02/2017) Denies: Bronchitis, Cardia Arrhythmia, Emphysema, Mitral Valve Prolapse, Pneumonia, Chronic Kidney Disease, Sleep Apnea Surgical History: Denies: Pacemaker - [facility] Procedures FLUOROSCOPY OF LEFT HEART USING LOW OSMOLAR CONTRAST (06/03/17) FLUOROSCOPY OF MULT COR ART USING L OSM CONTRAST (06/03/17) MEASURE OF CARDIAC SAMPL & PRESSURE, L HEART, PERC APPROACH (06/03/17) Family History: States: Unknown Family Hx - Social History Hx Tobacco Use: Yes Hx Alcohol Use: No Hx Substance Use: No - Immunization History Hx Tetanus Toxoid Vaccination: Yes Hx Influenza Vaccination: Yes Hx Pneumococcal Vaccination: (unk) ED Course And Treatment O2 Sat by Pulse Oximetry: 98 Disposition Counseled Patient/Family Regarding: Need For Followup - Disposition Referrals: Chong Adame MD [Staff Provider] - Disposition: HOME/ ROUTINE Disposition Time: 09:00 Condition: STABLE Additional Instructions: Follow up with PMD for further evaluation Instructions: Medicine Refill (ED) - POA Present On Arrival: None - Clinical Impression Clinical Impression: Seizure disorder, Medication administered
--- NOTE | 2017-08-06 09:01 | C.PDOC ---
History Of Present Illness 57 y/o male, history of seziure disorder, states he felt a "jerky" movement this morning. Pt states he went to take Keppra, but he did not have any left. Pt states he has an appointment this afternoon with PMD Dr. Adame, and will get prescription from him, but requesting 1 dose here. Denies any other problems , injury, or complaints. Time Seen by Provider: 08/06/17 08:09 Chief Complaint (Nursing): Med Refill History Per: Patient History/Exam Limitations: no limitations Onset/Duration Of Symptoms: Days Current Symptoms Are (Timing): Still Present Recent travel outside of the [place]: No Past Medical History Reviewed: Historical Data, Nursing Documentation, Vital Signs Vital Signs: Last Vital Signs Temp 97.9 F 08/06/17 08:07 Pulse 75 08/06/17 08:07 Resp 20 08/06/17 08:07 BP 157/94 H 08/06/17 08:07 Pulse Ox 98 08/06/17 09:02 - Medical History PMH: Atrial Fibrillation, CHF, COPD, CVA, Deep Vein Thrombosis, Gastritis, HTN, Hypercholesterolemia, Hyperlipidemia, Peripheral Edema, Pulmonary Embolism, Seizures (last episode 02/2017) - [facility] Procedures FLUOROSCOPY OF LEFT HEART USING LOW OSMOLAR CONTRAST (06/03/17) FLUOROSCOPY OF MULT COR ART USING L OSM CONTRAST (06/03/17) MEASURE OF CARDIAC SAMPL & PRESSURE, L HEART, PERC APPROACH (06/03/17) Family History: States: Unknown Family Hx - Social History Hx Tobacco Use: Yes Hx Alcohol Use: No Hx Substance Use: No - Immunization History Hx Tetanus Toxoid Vaccination: Yes Hx Influenza Vaccination: Yes Hx Pneumococcal Vaccination: (unk) Review Of Systems Except As Marked, All Systems Reviewed And Found Negative. Constitutional: Negative for: Fever, Chills Respiratory: Negative for: Cough, Shortness of Breath Gastrointestinal: Negative for: Vomiting Skin: Negative for: Rash Neurological: Positive for: Seizures. Negative for: Headache, Dizziness Physical Exam - Physical Exam Appears: Non-toxic, No Acute Distress Skin: Normal Color, Warm, Dry Head: Atraumatic, Normacephalic Eye(s): bilateral: Normal Inspection Oral Mucosa: Moist Chest: Symmetrical Cardiovascular: Rhythm Regular Respiratory: Normal Breath Sounds, No Rales, No Rhonchi, No Wheezing Gastrointestinal/Abdominal: Soft, No Tenderness, No Guarding, No Rebound Back: Normal Inspection Extremity: Normal ROM, Capillary Refill (< 2 sec.) Neurological/Psych: Oriented x3, Normal Speech, Normal Cognition ED Course And Treatment O2 Sat by Pulse Oximetry: 98 (RA) Pulse Ox Interpretation: Normal Progress Note: Treated with Keppra. On re-eval pt resting comfortably, in no acute distress. Advised to follow up with Dr. Adame as discussed. Disposition Counseled Patient/Family Regarding: Need For Followup - Disposition Referrals: Chong Adame MD [Staff Provider] - Disposition: HOME/ ROUTINE Disposition Time: 09:00 Condition: STABLE Additional Instructions: Follow up with PMD for further evaluation Instructions: Medicine Refill (ED) Forms: [facility] (Afghan) - POA Present On Arrival: None - Clinical Impression Clinical Impression: Seizure disorder, Medication administered - PA / STAPLER MACHINE / Resident Statement MD/DO has reviewed & agrees with the documentation as recorded. - Scribe Statement The provider has reviewed the documentation as recorded by the Scribe SM All medical record entries made by the Scribe were at my direction and personally dictated by me. I have reviewed the chart and agree that the record accurately reflects my personal performance of the history, physical exam, medical decision making, and the department course for this patient. I have also personally directed, reviewed, and agree with the discharge instructions and disposition.
== END 2017-08-06 09:07 | disposition home or self-care (01) ==
LOC: C.ER 08:01
DX: Z76.0 Encounter for issue of repeat prescription (principal); G40.909 Epilepsy, unspecified, not intractable, without status epilepticus

== ENCOUNTER 2017-08-10 19:19 | Observation (INO) | payer MEDICAID ==
[2017-08-10 19:19] VITALS: BMI 32.3
--- NOTE | 2017-08-10 20:03 | C.PDOC ---
History Of Present Illness 57 y/o male c/o SOB that began last night. Patient denies any pain, chest pain, palpitations, abdominal pain, nausea, vomiting, or any other complaints. Time Seen by Provider: 08/10/17 20:02 Chief Complaint (Nursing): Shortness Of Breath History Per: Patient History/Exam Limitations: no limitations Onset/Duration Of Symptoms: Days Current Symptoms Are (Timing): Still Present Quality: denies: "Pain" Current Respiratory Medications: See Home Med List Severity: Mild Recent travel outside of the [place]: No Additional History Per: Patient Past Medical History Reviewed: Historical Data, Nursing Documentation, Vital Signs Vital Signs: Last Vital Signs Temp 97.9 F 08/10/17 19:39 Pulse 75 08/11/17 00:37 Resp 18 08/11/17 00:37 BP 144/89 08/11/17 00:37 Pulse Ox 99 08/11/17 00:37 - Medical History PMH: Atrial Fibrillation, CHF, COPD, CVA, Deep Vein Thrombosis, Gastritis, HTN, Hypercholesterolemia, Hyperlipidemia, Peripheral Edema, Pulmonary Embolism, Seizures (last episode 02/2017) Denies: Bronchitis, Cardia Arrhythmia, Emphysema, Mitral Valve Prolapse, Pneumonia, Chronic Kidney Disease, Sleep Apnea Surgical History: Denies: Pacemaker - [facility] Procedures FLUOROSCOPY OF LEFT HEART USING LOW OSMOLAR CONTRAST (06/03/17) FLUOROSCOPY OF MULT COR ART USING L OSM CONTRAST (06/03/17) MEASURE OF CARDIAC SAMPL & PRESSURE, L HEART, PERC APPROACH (06/03/17) Family History: States: Unknown Family Hx - Social History Hx Tobacco Use: Yes Hx Alcohol Use: No Hx Substance Use: No - Immunization History Hx Tetanus Toxoid Vaccination: Yes Hx Influenza Vaccination: Yes Hx Pneumococcal Vaccination: (unk) Review Of Systems Except As Marked, All Systems Reviewed And Found Negative. Constitutional: Negative for: Fever, Chills ENT: Negative for: Throat Swelling Cardiovascular: Negative for: Chest Pain, Palpitations Respiratory: Positive for: Shortness of Breath Gastrointestinal: Negative for: Nausea, Vomiting Skin: Negative for: Rash Physical Exam - Physical Exam Appears: Non-toxic, No Acute Distress Skin: Warm, Dry Head: Atraumatic, Normacephalic Oral Mucosa: Moist Throat: Normal, No Erythema Cardiovascular: Rhythm Regular, No Murmur Respiratory: Rales (Occasional rales to the left lower bases), No Rhonchi, No Wheezing Gastrointestinal/Abdominal: Soft, No Tenderness Neurological/Psych: Oriented x3, Other (Left sided weakness, old CVA) ED Course And Treatment - Laboratory Results Result Diagrams: 08/10/17 20:11 08/10/17 20:11 ECG Rhythm: Sinus Rhythm, ST/T Changes ECG Interpretation: No Acute Changes Interpretation Of ECG: Sinus rhythm with occa. PVC. LAD, St-T abn. ;lateral chest leads.,no acute change fromtracings of Rate From EC O2 Sat by Pulse Oximetry: 98 (RA) Pulse Ox Interpretation: Normal Medical Decision Making Medical Decision Making: Plans: * EKG * Blood labs * CXR * IV fluids * UA Disposition Discussed With : Chong Adame Doctor Will See Patient In The: Hospital Counseled Patient/Family Regarding: Diagnosis - Disposition Disposition: HOSPITALIZED Disposition Time: 00:58 Condition: STABLE Forms: [facility] (Dutch) - POA Present On Arrival: None - Clinical Impression Clinical Impression: CHF (congestive heart failure), CVA, old, hemiparesis - Scribe Statement The provider has reviewed the documentation as recorded by the Scribe Leonidas rios All medical record entries made by the Scribe were at my direction and personally dictated by me. I have reviewed the chart and agree that the record accurately reflects my personal performance of the history, physical exam, medical decision making, and the department course for this patient. I have also personally directed, reviewed, and agree with the discharge instructions and disposition.
[2017-08-10 20:15] LABS: BASO # 0.1 K/uL (0.0-0.2); BASO % 0.6 % (0.0-2.0); EOS # 0.2 K/uL (0.0-0.7); EOS % 1.7 % (0.0-4.0); HEMATOCRIT 37.3 % (35.0-51.0); LYMPH # 2.9 K/uL (1.0-4.3); LYMPH % 26.8 % (20.0-40.0); MEAN CELL VOLUME 77.4 fL (80.0-94.0); MEAN CORPUSCULAR HGB CONC 31.1 g/dL (33.0-37.0); MONO # 0.7 K/uL (0.0-0.8); MONO % 6.3 % (0.0-10.0); NRBC % 0.1 % (0.0-2.0); RED CELL DISTRIBUTION WIDTH 14.5 % (11.5-14.5); WHITE BLOOD COUNT 10.7 K/uL (4.8-10.8)
[2017-08-10 20:35] LABS: ALKALINE PHOSPHATASE 51 U/L (38-126); ALT/SGPT 54 U/L (21-72); AST/SGOT 32 U/L (17-59); BILIRUBIN,TOTAL 0.5 mg/dL (0.2-1.3); BLOOD UREA NITROGEN 15 mg/dL (9-20); CALCIUM 8.5 mg/dl (8.6-10.4); CARBON DIOXIDE 24 mmol/L (22-30); CHLORIDE 105 mmol/L (98-107); GFR AFRICAN-AMERICAN > 60; GLUCOSE,RANDOM 89 mg/dL (75-110); POTASSIUM 3.7 mmol/L (3.6-5.2); SODIUM 139 mmol/L (132-148); TOTAL PROTEIN 7.3 g/dL (6.3-8.3)
[2017-08-10 21:58] LABS: RBC URINE 1 /hpf (0-3); URINE BACTERIA OCC (<OCC); URINE BILIRUBIN NEGATIVE (NEGATIVE); URINE BLOOD NEGATIVE (NEGATIVE); URINE CALCIUM OXALATE CRYSTALS MOD /hpf (<OCC); URINE COLOR Yellow (YELLOW); URINE GLUCOSE (UA) NORMAL (Normal); URINE KETONE NEGATIVE (NEGATIVE); URINE LEUKOCYTE ESTERASE NEG Leu/uL (Negative); URINE PROTEIN 2+ mg/dL (NEGATIVE); WBC URINE 2 /hpf (0-5)
--- NOTE | 2017-08-10 22:26 | CT ---
EXAM: CT Chest Without Intravenous Contrast EXAM DATE/TIME: 08/10/2017 9:04 PM CLINICAL HISTORY: 57 years old, male; Signs and symptoms; Shortness of breath; Additional info: SOB TECHNIQUE: Axial computed tomography images of the chest without intravenous contrast. All CT scans at this facility use one or more dose reduction techniques, viz.: automated exposure control; ma/kV adjustment per patient size (including targeted exams where dose is matched to indication; i.e. head); or iterative reconstruction technique. Coronal and sagittal reformatted images were created and reviewed. COMPARISON: No relevant prior studies available. FINDINGS: There is elevation of the left hemidiaphragm with mediastinal / cardiac shift to the right. Cardiomegaly. No aortic aneurysm. Minimal bibasilar atelectasis. No pneumothorax. No pleural effusions. Mild degenerative changes in the osseous structures. IMPRESSION: No acute findings.
[2017-08-10] MEDS ORDERED: Iodixanol 320 MG/ML 100 ML BOTTLE IV ONE (23:42)
--- NOTE | 2017-08-11 00:39 | CT ---
EXAM: CT Angiography Chest With Intravenous Contrast EXAM DATE/TIME: 08/10/2017 10:49 PM CLINICAL HISTORY: 57 years old, male; Signs and symptoms; Shortness of breath; Patient HX: Has a ivc filter; Additional info: Sob/ elevated d-dimer TECHNIQUE: Axial computed tomographic angiography images of the chest with intravenous contrast using pulmonary embolism protocol. All CT scans at this facility use one or more dose reduction techniques, viz.: automated exposure control; ma/kV adjustment per patient size (including targeted exams where dose is matched to indication; i.e. head); or iterative reconstruction technique. MIP reconstructed images were created and reviewed. Coronal and sagittal reformatted images were created and reviewed. CONTRAST: 100 mL of visipaque 320 administered intravenously. COMPARISON: CT - CHEST W/O CONTRAST 2017-08-10 21:41 FINDINGS: There is elevation of the left hemidiaphragm with mediastinal / cardiac shift to the right. Asymmetry of the lung volumes being less prominent on the right. Asymmetry of the pectoralis muscles being more prominent on the right. Cardiomegaly with left atrial enlargement. No pulmonary embolism. No aortic aneurysm. Minimal bibasilar atelectasis. No pneumothorax. No pleural effusions. IVC filter. The solid organs appear grossly normal. Moderate amount stool within the colon. Mild degenerative changes in the osseous structures. IMPRESSION: No acute findings in the chest. Moderate stool in the transverse colon.
[2017-08-11] MEDS ORDERED: Oxycodone/Acetaminophen 5/325 mg Tab PO PRN (02:08)
--- NOTE | 2017-08-11 08:30 | CP.PCM.PN ---
Subjective - Date & Time of Evaluation Date of Evaluation: 08/11/17 Time of Evaluation: 10:00 - Subjective Subjective: Dr. Adame note: Patient seen and examined in room. He is a 57 year old male with a history of CHF is here with shortness of breath that she says was worse over the past few days. Objective - Vital Signs/Intake and Output Vital Signs (last 24 hours): Temp Pulse Resp BP Pulse Ox 97.8 F 64 20 151/99 H 93 L 08/11/17 07:00 08/11/17 07:00 08/11/17 07:00 08/11/17 07:00 08/11/17 07:00 Intake and Output: 08/11/17 08/11/17 06:59 18:59 Output Total 250 Balance -250 - Medications Medications: Current Medications Aspirin (Ecotrin) 81 mg PO DAILY [facility] Carvedilol (Coreg) 6.25 mg PO BID [facility] Enoxaparin Sodium (Lovenox) 40 mg SC DAILY [facility] Furosemide (Lasix) 40 mg IVP BID [facility] Levetiracetam (Keppra) 750 mg PO BID [facility] Lisinopril (Zestril) 20 mg PO DAILY [facility] Oxycodone/Acetaminophen (Percocet 5/325 Mg Tab) 1 tab PO Q4H PRN PRN Reason: Pain, moderate (4-7) Stop: 08/14/17 02:09 - Labs Labs: 08/10/17 20:11 08/10/17 20:11 - Constitutional Appears: Non-toxic, No Acute Distress - Eye Exam Eye Exam: Normal appearance - Respiratory Exam Respiratory Exam: Rales. absent: Clear to Ausculation Bilateral, Rhonchi, Wheezes - Cardiovascular Exam Cardiovascular Exam: REGULAR RHYTHM, RRR, +S1, +S2. absent: Gallop, Rubs - GI/Abdominal Exam GI & Abdominal Exam: Soft, Normal Bowel Sounds. absent: Tenderness - Extremities Exam Extremities Exam: Pedal Edema. absent: Normal Inspection - Psychiatric Exam Psychiatric exam: Normal Affect, Normal Mood Assessment and Plan (1) CHF (congestive heart failure) Assessment & Plan: Patient is here with acute on chronic CHF. He is getting 40mg of Lasix IV BID, will do daily weight measurmentns and I&Os measurement. CT of the chest is negative for PE yesterday Status: Acute (2) HTN (hypertension) Assessment & Plan: Aspirin 81mg, Coreg 6.25mg, Zestril 20mg Status: Chronic (3) Seizure disorder Assessment & Plan: continue his Keppra, seizure precuations, and fall precautions. Status: Chronic (4) Prophylactic measure Assessment & Plan: Lovenox 40mg Protonix 40mg hold SCDs due to lower extremity edema. Status: Acute
--- NOTE | 2017-08-11 08:30 | RAD ---
Chest x-ray single frontal view History: Shortness of breath. Comparison: 07/27/2017 Findings: Persistent elevated left ishaan diaphragm with bowel interposition underneath the left hemidiaphragm. Moderate venous congestion with consolidative changes seen at the left hilar region extending to the left lung base. Additional patchy increased markings at the right lung base. Biapical pleural thickening. Cardiomegaly. Degenerative changes in the spine and shoulders. Impression: Persistent elevated left ishaan diaphragm with bowel interposition underneath the left hemidiaphragm. Moderate venous congestion with consolidative changes seen at the left hilar region extending to the left lung base. Additional patchy increased markings at the right lung base. Biapical pleural thickening. Cardiomegaly.
[2017-08-11] MEDS: Enoxaparin 40 mg Syringe SC SCH (09:20)
[2017-08-11 09:58] LABS: BASO % 0.6 % (0.0-2.0); EOS # 0.1 K/uL (0.0-0.7); EOS % 1.8 % (0.0-4.0); HEMATOCRIT 32.8 % (35.0-51.0); LYMPH # 1.5 K/uL (1.0-4.3); LYMPH % 19.8 % (20.0-40.0); MEAN CELL VOLUME 77.6 fL (80.0-94.0); MEAN CORPUSCULAR HEMOGLOBIN 24.6 pg (27.0-31.0); MEAN CORPUSCULAR HGB CONC 31.6 g/dL (33.0-37.0); MEAN PLATELET VOLUME 8.7 fL (7.2-11.7); MONO # 0.5 K/uL (0.0-0.8); MONO % 6.2 % (0.0-10.0); NRBC % 0.1 % (0.0-2.0); RED CELL DISTRIBUTION WIDTH 14.5 % (11.5-14.5); WHITE BLOOD COUNT 7.8 K/uL (4.8-10.8)
[2017-08-11 10:13] LABS: ALB/GLOB RATIO 1.5 (1.0-2.1); ALKALINE PHOSPHATASE 47 U/L (38-126); ALT/SGPT 47 U/L (21-72); AST/SGOT 24 U/L (17-59); BLOOD UREA NITROGEN 12 mg/dL (9-20); CALCIUM 8.4 mg/dl (8.6-10.4); CARBON DIOXIDE 24 mmol/L (22-30); CHLORIDE 103 mmol/L (98-107); GFR AFRICAN-AMERICAN > 60; GLUCOSE,RANDOM 134 mg/dL (75-110); MAGNESIUM 1.6 mg/dL (1.6-2.3); PHOSPHOROUS 3.4 mg/dL (2.5-4.5); POTASSIUM 3.2 mmol/L (3.6-5.2); SODIUM 137 mmol/L (132-148); TOTAL PROTEIN 5.9 g/dL (6.3-8.3)
[2017-08-11] MEDS ORDERED: Potassium Chloride 20 mEq ER Tab PO ONE (15:45)
[2017-08-11] MEDS: Pantoprazole 40 mg EC Tab PO SCH (18:30)
[2017-08-11] MEDS ORDERED: Potassium Chloride 20 mEq ER Tab PO STA ×3 (19:17→19:31)
--- NOTE | 2017-08-11 21:09 | HP ---
HISTORY OF PRESENT ILLNESS: The patient is a 57-year-old male, admitted to the hospital with complaint of weakness,fatigue, tiredness, swelling of lower extremities. The patient came to the ER for admission. The patient has congestive heart failure, extremely noncompliant. The patient lives in a fdc. PHYSICAL EXAMINATION: GENERAL: The patient is awake, alert, and oriented. VITAL SIGNS: Temperature 98, pulse 90, blood pressure 120/70. HEENT: Within normal limits. NECK: Supple. CHEST: Symmetrical. HEART: Regular. ABDOMEN: Soft. EXTREMITIES: 3+ edema. IMPRESSION: Congestive heart failure. PLAN: , supportive care. Chong Adame MD
[2017-08-12 07:33] LABS: BASO % 0.4 % (0.0-2.0); EOS # 0.1 K/uL (0.0-0.7); EOS % 1.5 % (0.0-4.0); HEMATOCRIT 34.9 % (35.0-51.0); LYMPH # 1.9 K/uL (1.0-4.3); LYMPH % 19.9 % (20.0-40.0); MEAN CELL VOLUME 76.9 fL (80.0-94.0); MEAN CORPUSCULAR HEMOGLOBIN 24.9 pg (27.0-31.0); MEAN CORPUSCULAR HGB CONC 32.3 g/dL (33.0-37.0); MEAN PLATELET VOLUME 9.6 fL (7.2-11.7); MONO # 0.6 K/uL (0.0-0.8); MONO % 5.7 % (0.0-10.0); NRBC % 0.1 % (0.0-2.0); RED CELL DISTRIBUTION WIDTH 14.2 % (11.5-14.5); WHITE BLOOD COUNT 9.7 K/uL (4.8-10.8)
[2017-08-12 07:40] LABS: ALKALINE PHOSPHATASE 52 U/L (38-126); ALT/SGPT 47 U/L (21-72); AST/SGOT 23 U/L (17-59); BILIRUBIN,TOTAL 1.2 mg/dL (0.2-1.3); BLOOD UREA NITROGEN 12 mg/dL (9-20); CALCIUM 8.5 mg/dl (8.6-10.4); CARBON DIOXIDE 25 mmol/L (22-30); CHLORIDE 103 mmol/L (98-107); GFR AFRICAN-AMERICAN > 60; GLUCOSE,RANDOM 90 mg/dL (75-110); MAGNESIUM 1.6 mg/dL (1.6-2.3); POTASSIUM 3.4 mmol/L (3.6-5.2); SODIUM 137 mmol/L (132-148); TOTAL PROTEIN 5.7 g/dL (6.3-8.3)
[2017-08-12 08:21] LABS: ALB/GLOB RATIO 1.5 (1.0-2.1)
[2017-08-12] MEDS: Pantoprazole 40 mg EC Tab PO SCH (09:22)
[2017-08-12] MEDS: Enoxaparin 40 mg Syringe SC SCH (09:23)
--- NOTE | 2017-08-12 11:50 | CP.PCM.PN ---
Subjective - Date & Time of Evaluation Date of Evaluation: 08/12/17 Time of Evaluation: 10:00 - Subjective Subjective: PGY3 on medicine Dr. Adame service: Pt seen and examined at bedside this morning. Pt said swelling mildly improved but still complains of fatigue and SOB. Pt said [facility]vest [facility] and was not able to answer if he followed up with Dr. Adame afterwards since previous admission. Pt otherwise wants to sleep and offers no other complaints. Objective - Vital Signs/Intake and Output Vital Signs (last 24 hours): Temp Pulse Resp BP Pulse Ox 98.4 F 76 20 155/86 H 95 08/12/17 08:23 08/12/17 08:23 08/12/17 08:23 08/12/17 09:23 08/12/17 08:23 - Medications Medications: Current Medications Aspirin (Ecotrin) 81 mg PO DAILY [facility] Last Admin: 08/12/17 09:22 Dose: 81 mg Carvedilol (Coreg) 6.25 mg PO BID [facility] Last Admin: 08/12/17 09:23 Dose: 6.25 mg Enoxaparin Sodium (Lovenox) 40 mg SC DAILY [facility] Last Admin: 08/12/17 09:23 Dose: 40 mg Furosemide (Lasix) 40 mg IVP BID [facility] Last Admin: 08/12/17 09:23 Dose: 40 mg Levetiracetam (Keppra) 750 mg PO BID [facility] Last Admin: 08/12/17 09:22 Dose: 750 mg Lisinopril (Zestril) 20 mg PO DAILY [facility] Last Admin: 08/12/17 09:23 Dose: 20 mg Oxycodone/Acetaminophen (Percocet 5/325 Mg Tab) 1 tab PO Q4H PRN PRN Reason: Pain, moderate (4-7) Stop: 08/14/17 02:09 Pantoprazole Sodium (Protonix Ec Tab) 40 mg PO DAILY [facility] Last Admin: 08/12/17 09:22 Dose: 40 mg - Labs Labs: 08/12/17 07:21 08/12/17 07:21 - Constitutional Appears: Non-toxic, No Acute Distress, Unkempt, Cachectic - Head Exam Head Exam: NORMOCEPHALIC - Eye Exam Eye Exam: Normal appearance - Respiratory Exam Respiratory Exam: Clear to Ausculation Bilateral, Rales, NORMAL BREATHING PATTERN. absent: Rhonchi, Wheezes - Cardiovascular Exam Cardiovascular Exam: REGULAR RHYTHM, +S1, +S2. absent: Gallop, Rubs - GI/Abdominal Exam GI & Abdominal Exam: Soft, Normal Bowel Sounds - Neurological Exam Neurological Exam: Alert, Awake - Psychiatric Exam Psychiatric exam: Normal Mood - Skin Skin Exam: Intact Assessment and Plan - Assessment and Plan (Free Text) Assessment: (1) CHF (congestive heart failure) Assessment & Plan: Patient is here with acute on chronic CHF with EF of 30%. Pt was prescribed LifeVest but claimed [facility] threw it away. Pt was unable to answer if he had follow ups before this admission. He is getting 40mg of Lasix IV BID, will do daily weight measurmentns and I&Os measurement. CT of the chest is negative for PE. Plan to DC tomorrow after additional diuresis. Status: Acute (2) HTN (hypertension) Assessment & Plan: Aspirin 81mg, Coreg 6.25mg, Zestril 20mg Status: Chronic (3) Seizure disorder Assessment & Plan: continue his Keppra, seizure precuations, and fall precautions. Status: Chronic (4) Prophylactic measure Assessment & Plan: Lovenox 40mg Protonix 40mg hold SCDs due to lower extremity edema. Status: Acute
[2017-08-12] MEDS ORDERED: Potassium Chloride 20 mEq ER Tab PO ONE (13:00)
[2017-08-13 08:34] VITALS: BP 121/75; PULSE 72; RESP 20; TEMP 99; O2SAT 98
--- NOTE | 2017-08-13 09:06 | CP.PCM.PN ---
Subjective - Date & Time of Evaluation Date of Evaluation: 08/13/17 Time of Evaluation: 09:00 - Subjective Subjective: Dr. Adame note: Patient is seen in room. He says is breathing has improved since discharge. He has no new complaints, no cough, chest pain, shortness of breath. And his lower leg swelling has improved. Objective - Vital Signs/Intake and Output Vital Signs (last 24 hours): Temp Pulse Resp BP Pulse Ox 99.0 F 72 20 121/75 98 08/13/17 08:31 08/13/17 08:31 08/13/17 08:31 08/13/17 08:31 08/13/17 08:31 - Medications Medications: Current Medications Aspirin (Ecotrin) 81 mg PO DAILY [facility] Last Admin: 08/12/17 09:22 Dose: 81 mg Carvedilol (Coreg) 6.25 mg PO BID [facility] Last Admin: 08/12/17 19:29 Dose: Not Given Enoxaparin Sodium (Lovenox) 40 mg SC DAILY [facility] Last Admin: 08/12/17 09:23 Dose: 40 mg Furosemide (Lasix) 40 mg IVP BID [facility] Last Admin: 08/12/17 19:28 Dose: Not Given Levetiracetam (Keppra) 250 mg PO BID [facility] Last Admin: 08/12/17 19:28 Dose: Not Given Levetiracetam (Keppra) 500 mg PO BID [facility] Last Admin: 08/12/17 19:28 Dose: Not Given Lisinopril (Zestril) 20 mg PO DAILY [facility] Last Admin: 08/12/17 09:23 Dose: 20 mg Oxycodone/Acetaminophen (Percocet 5/325 Mg Tab) 1 tab PO Q4H PRN PRN Reason: Pain, moderate (4-7) Stop: 08/14/17 02:09 Pantoprazole Sodium (Protonix Ec Tab) 40 mg PO DAILY [facility] Last Admin: 08/12/17 09:22 Dose: 40 mg - Labs Labs: 08/12/17 07:21 08/12/17 07:21 - Constitutional Appears: Non-toxic, No Acute Distress - Eye Exam Eye Exam: Normal appearance - Respiratory Exam Respiratory Exam: Clear to Ausculation Bilateral. absent: Rales, Rhonchi, Wheezes - Cardiovascular Exam Cardiovascular Exam: REGULAR RHYTHM, RRR, +S1, +S2. absent: Gallop, Rubs - GI/Abdominal Exam GI & Abdominal Exam: Soft, Normal Bowel Sounds. absent: Tenderness - Extremities Exam Extremities Exam: Pedal Edema. absent: Calf Tenderness, Normal Inspection - Psychiatric Exam Psychiatric exam: Normal Affect, Normal Mood - Skin Skin Exam: Normal Color Assessment and Plan - Assessment and Plan (Free Text) Assessment: (1) CHF (congestive heart failure) Assessment & Plan: 08/13: Discharged patient with PO Lasix, Zestril, and Coreg. Patient will need to follow up with Dr. Adame after discharge. Patient is here with acute on chronic CHF with EF of 30%. Pt was prescribed LifeVest but claimed [facility]. Pt was unable to answer if he had follow ups before this admission. He is getting 40mg of Lasix IV BID, will do daily weight measurmentns and I&Os measurement. CT of the chest is negative for PE. Plan to DC tomorrow after additional diuresis. Status: Acute (2) HTN (hypertension) Assessment & Plan: 08/13: Discharged home. Aspirin 81mg, Coreg 6.25mg, Zestril 20mg Status: Chronic (3) Seizure disorder Assessment & Plan: continue his Keppra, seizure precuations, and fall precautions. Status: Chronic (4) Prophylactic measure Assessment & Plan: Lovenox 40mg Protonix 40mg hold SCDs due to lower extremity edema.
[2017-08-13] MEDS: Pantoprazole 40 mg EC Tab PO SCH (10:34)
[2017-08-13] MEDS: Enoxaparin 40 mg Syringe SC SCH (10:35)
--- NOTE | 2017-08-13 12:19 | PCM.HF ---
Heart Failure Core Measure - Heart Failure Ejection Fraction: 40 % or Greater Left Ventricular Function to be assessed after discharge: Yes TRACEY Inhibitor Prescribed: Yes Beta-Sonia Prescribed: Carvedilol Angiotensin II Receptor Sonia Prescribed: No Contraindication/Reason for not providing: not indicated AnticoagulationTherapy for Atrial Fibrillation/Atrialflutter: No Contraindication/Reason for not providing: not indicated Aldosterone Antagonist Prescribed: No Contraindication/Reason for not providing: not indicated Contraindication/Reason for not providing: not indicated Implantable Cardioverter Defibrillator Therapy: No Contraindication/Reason for not providing: not indicated Cardiac Resynchronization Therapy Prescribed: No Contraindication/Reason for not providing: not indicated - Follow up Will be discharged to: Home Follow Up Date (must be within 7 days from discharge): 08/20/17 Follow Up Time: 09:00
[2017-08-13] MEDS ORDERED: Potassium Chloride 20 mEq ER Tab PO ONE (12:45)
--- NOTE | 2017-08-14 10:47 | CARD ---
APPROVED REPORT EKG Measurement Heart [id number] [place] [id number] <Conclusion> Sinus rhythm with occasional premature ventricular complexes Left axis deviation Nonspecific intraventricular block T wave abnormality, consider anterolateral ischemia Abnormal ECG
== END 2017-08-13 14:10 | disposition home or self-care (01) ==
LOC: C.ER 19:19 → C.9E 08-11 00:59 → C.5S 08-11 02:26
PROVIDERS: ADMIT Internal Medicine Pulmonary Disease; ATTEND Internal Medicine Pulmonary Disease
DX: I11.0 Hypertensive heart disease with heart failure (principal); I50.9 Heart failure, unspecified; G40.909 Epilepsy, unspecified, not intractable, without status epilepticus
CPT/HCPCS: 36415; 71010; 71250; 71275; 80053; 80324; 80345; 80346; 80349; 80353; 80358; 80361; 81001; 83735; 83880; 83992; 84100; 84484; 85025; 85378; 93005; 96374; 99285; G0378; J1650; J1940; Q9967